=== PATIENT | male | born 1960 | race Caucasian/White ===

== ENCOUNTER 2017-05-22 22:35 | Inpatient (IN) | payer OTHER ==
--- NOTE | 2017-05-22 23:07 | PDOC ---
History of Present Illness - General Chief Complaint: Pain, Acute Stated Complaint: KNEE PAIN Time Seen by Provider: 05/22/17 22:54 History Source: Patient Exam Limitations: No Limitations - History of Present Illness Initial Comments: 05/23/17 04:08 Patient is a 56-year-old male with past medical history of hypertension, NIDDM, noncompliant with medication, who presents to the emergency department today complaining of bilateral knee pain. Patient states that his knee pain began approximately 1 week ago and has intensified over the last 24 hours. He states that his knees are very swollen and painful. Admits to fevers and chills. Denies chest pain, shortness of breath, palpitations, cough, runny nose, ear pain, throat pain, abdominal pain, frequency, urgency, hematuria, nausea, vomiting and diarrhea. Patient states that he did not take any of his medications today. Patient is not on anticoagulation. Triage vitals are notable for a blood pressure of 203/90. Patient states that he does have a headache at this time. Upon further questioning, pt. states he has had a headache for two weeks. tPA Exclusion checklist 3-4.5h - Time Elapsed Date last known well: 05/10/17 Time last known well: 10:00 Elaspsed time: 14 Day(s) and 0 Hour(s) and 51 Minutes - Thrombolytic Therapy Candidate Is patient eligible for thrombolytic therapy: No - Exclusion Criteria 3-4.5 hr SBP greater than 185 or DBP greater than 110mmHg despite tx: Yes Active internal bleeding: Yes - Ineligibility reason(s) Reasons No tPA given: Outside of window - delayed arrival, See reason(s) noted above (intracrainal hemorrhage) NIH Stroke Scale - Initial Evaluation Level of consciousness: Alert Ask patient the month and their age: Answers both correctly Ask patient to open & close eyes; make fist and let go: Obeys both correctly Best gaze (horizontal eye movement): Normal Visual field testing: No visual field loss Facial paresis (Show teeth/raise eyebrows/close eyes tight): Minor paralysis ( flattened nasolabial fold, asymmetry on smiling) Motor Function: Left Arm: Normal Motor Function: Right Arm: Normal (extends arm 90 (or 45) degrees for 10 seconds without drift Motor Function: Left Leg: Untestable (Joint fused or limb amputated), explain: (unable to move legs d/t cellulitis) Motor Function: Right Leg: Untestable )Joint fused orlimb amputated), explain: (unable to move legs d/t cellulitis) Limb Ataxia: Untestable (Joint fused or limb amputated), explain: (unable to move legs d/t cellulitis) Sensory(Use pinprick test arms,legs,trunk,face/side to side): Mild to moderate decrease in sensation (R upper face sensation dulled) Best language (Describe picture, name items, read sentences): No Aphasia Dysarthria (read several words): Normal articulation Extinction and Inattention: No abnormality - Total Score NIH Stroke Scale Score: 2 Past History - Travel Traveled outside of the country in the last 30 days: No Close contact w/someone who was outside of country & ill: No - Past Medical History Allergies/Adverse Reactions: Allergies Allergy/AdvReac Type Severity Reaction Status Date / Time Penicillins Allergy Unknown Verified 05/22/17 22:49 Home Medications: Ambulatory Orders Folic Acid - 1 mg PO DAILY #30 tablet 09/12/13 Glipizide [Glucotrol -] 5 mg PO BIDAC #60 tablet 09/12/13 Metformin HCl [Glucophage -] 500 mg PO AM #30 tablet 09/12/13 Multivitamins [Multivit ([facility] Formulary)] 1 tab PO DAILY #30 tab 09/12/13 Phenazopyridine HCl 100 mg PO TID 01/12/14 Amlodipine Besylate [Norvasc -] 10 mg PO DAILY #30 tablet 01/15/14 Labetalol HCl [Normodyne -] 600 mg PO BID #120 tablet 01/15/14 Anemia: No Asthma: No Cancer: No Cardiac Disorders: No CVA: No COPD: No CHF: No Dementia: No Diabetes: Yes GI Disorders: No Disorders: No HTN: Yes Hypercholesterolemia: No Liver Disease: No Seizures: Yes Thyroid Disease: No - Surgical History Abdominal Surgery: No Appendectomy: No Cardiac Surgery: No Cholecystectomy: No Lung Surgery: No Neurologic Surgery: No Orthopedic Surgery: No - Suicide/Smoking/Psychosocial Hx Smoking History: Unknown if ever smoked Have you smoked in the past 12 months: No Information on smoking cessation initiated: No Hx Alcohol Use: No Drug/Substance Use Hx: No Substance Use Type: Alcohol Hx Substance Use Treatment: No Review of Systems - Review of Systems Able to Perform ROS?: Yes Comments:: 05/23/17 03:15 CONSTITUTIONAL: Absent: fever, chills, diaphoresis, generalized weakness, malaise, loss of appetite HEENT: Absent: rhinorrhea, nasal congestion, throat pain, throat swelling, difficulty swallowing, mouth swelling, ear pain, eye pain, visual Changes CARDIOVASCULAR: Absent: chest pain, loss of consciousness, palpitations, irregular heart rate, peripheral edema RESPIRATORY: Absent: cough, shortness of breath, dyspnea with exertion, orthopnea, wheezing, stridor, hemoptysis GASTROINTESTINAL: Absent: abdominal pain, abdominal distension, nausea, vomiting, diarrhea, constipation, melena, hematochezia GENITOURINARY: Absent: dysuria, frequency, urgency, hesitancy, hematuria, flank pain, genital pain MUSCULOSKELETAL: Present: R and L knee swelling, pain. R and L foot pain. Absent: arthralgia, SKIN: Absent: rash, itching, pallor HEMATOLOGIC/IMMUNOLOGIC: Absent: easy bleeding, easy bruising, lymphadenopathy, frequent infections ENDOCRINE: Absent: unexplained weight gain, unexplained weight loss, heat intolerance, cold intolerance NEUROLOGIC: Present: headache Absent:focal weakness or paresthesias, dizziness, unsteady gait, seizure, mental status changes, bladder or bowel incontinence PSYCHIATRIC: Absent: anxiety, depression, suicidal or homicidal ideation, hallucinations. Is the patient limited Sami proficient: No *Physical Exam - Vital Signs Last Vital Signs Temp Pulse Resp BP Pulse Ox 98.7 F 94 H 14 203/91 95 05/22/17 22:49 05/22/17 22:49 05/22/17 22:49 05/22/17 22:49 05/22/17 22:49 - Physical Exam Comments: 05/23/17 03:16 GENERAL: Well developed, well nourished, obese. Awake and alert.x3 No acute distress, laying on exam bed breathing easily. HEENT: Normocephalic, atraumatic. PERRLA, EOMI. No conjunctival pallor. Sclera are non- icteric. Moist mucous membranes. Oropharynx is clear. NECK: Supple. Full ROM. No JVD. Carotid pulses 2+ and symmetric, without bruits. No thyromegaly. No lymphadenopathy. CARDIOVASCULAR: Regular rate and rhythm. 2+ systolic murmur loudest over the 2-3rd R intercostal space. No rubs, or gallops. Distal pulses are 2+ and symmetric. PULMONARY: No evidence of respiratory distress. Lungs clear to auscultation bilaterally. No wheezing, rales or rhonchi. ABDOMINAL: Soft. Non-tender. Non-distended. No rebound or guarding. No organomegaly. Normoactive bowel sounds. MUSCULOSKELETAL Knees b/l are swollen, warm to the touch. Skin intact over knees. Pt. unable to flex or extend knees b/l. Pedal pulses 2+ and regular. Normal range of motion at all other joints. No bony deformities or tenderness. No CVA tenderness. EXTREMITIES: No cyanosis. No clubbing. No edema. No calf tenderness. SKIN: [id number] area erythematous inferior to the L 1st toe. Warm and dry. Normal capillary refill. No jaundice. NEUROLOGICAL: Alert, awake, appropriate. Cranial nerves 2-12 intact. Light touch to R forehead decreased. Other sensation of the face intact. No deficits to light touch and temperature in upper extremities and lower extremities. R eyelid weak when closed. No other motor deficits of the face. No motor deficits in the in upper extremities. Lower extremities unable to be evaluated d/t pain from cellulitis . Normoreflexic in the upper and lower extremities. Normal speech. Toes are down-going bilaterally. Gait is unobserved at this time. PSYCHIATRIC: Cooperative. Good eye contact. Appropriate mood and affect. ED Treatment Course - LABORATORY CBC & Chemistry Diagram: 05/24/17 05:05 05/24/17 05:05 Medical Decision Making - Critical Care Time Total Critical Care Time (minutes): 40 Critical Care Statement: The care of this patient involved high complexity decision making to prevent further life threatening deterioration of the patient 's condition and/or to evaluate & treat vital organ system(s) failure or risk of failure. - Medical Decision Making 05/23/17 02:25 Patient is a 56-year-old male with past medical history of hypertension, non- insulin-dependent diabetes noncompliant with his medication, who presents to the emergency department today complaining of bilateral knee pain. Knees are grossly swollen at this time and warm to the touch. There is no obvious source of infection. Differential diagnosis includes cellulitis, gout, effusion. Less likely septic joint patient can slightly range both knees. On triage vitals blood pressure noted to be 215/110. Patient has not taken his home medications for his blood pressure today. Patient is also complaining of headache for two weeks. Will rule out acute bleed at this time. 1.CBC, CMP, PT/INR, uric acid, ESR, CRP UA, UC 2.10 mg of IV labetalol 3.head CT 4.reevaluate 05/23/17 03:18 Labs notable for a WBC count of 15.1. Source most likely coming from the legs, specifically the L and R feet, questionable cellulitic area. 05/23/17 04:01 Received phone call from imaging on-call regarding patient's head CT. There is a positive brain bleed. Official reading Head CT is positive for intracranial bleed. There is a 1.2 x 0.7 x 1.8 cm hematoma in the left parietal subcortical white matter. There is some surrounding edema. There is no deviation of the midline structures. There is a linear 11 x 3 x 3 mm band of hypodensity in the right basal ganglia there is a small amount of surrounding edema. Ventricles are mildly prominent. There is an old-appearing infarct in the anterior limb of the right basal ganglion. There is no calvarial fracture. Impression positive for intracranial bleed with left parietal hematoma. The density in the right basoganglia may reflect a second intracranial bleed or vascular malformation. Correlation with history and comparison with prior studies is recommended. Spoke with Dr. Smith, neurosurgery. Would like a CTA of the head to further evaluate bleed. BUN and Cr are eleveated 21/1.5 at this time. Recommending a liter of fluids, repeat BMP. If Cr comes down, CTA. Pressure is currently 211/93. Will administer another 10 IV labetolol 05/23/17 04:52 Pressure still elevated in the 200's after second dose of labatolol. Will start Nicardipine drip at this time to keep systolic between 140-160. Spoke with junior about the case. Will admit to ICU. ICU night [facility] [employer] accepts pt. BUN/CR 21/1.3 after fluids. Will send pt. for CTA brain and neck at this time. *DC/Admit/Observation/Transfer Diagnosis at time of Disposition: Hemorrhage, intracranial Hypertension Qualifiers: Hypertension type: unspecified Qualified Code(s): I10 - Essential (primary) hypertension Type 2 diabetes mellitus Qualifiers: Diabetes mellitus complication status: with unspecified complications Diabetes mellitus technician terminal and repeater insulin use: without intermediate use Qualified Code(s): E11.8 - Type 2 diabetes mellitus with unspecified complications Cellulitis Qualifiers: Site of cellulitis: extremity Site of cellulitis of extremity: lower extremity Laterality: left Qualified Code(s): L03.116 - Cellulitis of left lower limb - Discharge Dispostion Condition at time of disposition: Guarded Admit: Yes - Referrals - Patient Instructions - Post Discharge Activity
[2017-05-22 23:23] VITALS: BMI 29.0
[2017-05-22] MEDS ORDERED: LABETALOL HCL 5 MG/1 ML (100MG/20 ML VIAL) IVPUSH ONE (23:50)
[2017-05-23] MEDS ORDERED: LABETALOL HCL 5 MG/1 ML (200MG/40ML VIAL) IVPB ONE (01:03)
[2017-05-23 01:31] LABS: BASOPHIL 0.5 % (0-2.0); MCH 30.3 pg (25.7-33.7); MCHC 33.5 g/dl (32.0-35.9); MEAN CELL VOLUME 90.4 fl (80-96); NEUTROPHILS 82.4 % (42.8-82.8); PLATELET COUNT 299 K/MM3 (134-434); RDW 13.4 % (11.9-15.9); WHITE BLOOD COUNT 15.2 K/mm3 (4.0-10.0)
[2017-05-23 01:33] LABS: URINE APPEARANCE SLCLOUDY; URINE BILIRUBIN NEGATIVE (NEGATIVE); URINE BLOOD 1+ (NEGATIVE); URINE COLOR YELLOW; URINE GLUCOSE (UA) 3+ (NEGATIVE); URINE KETONE NEGATIVE (NEGATIVE); URINE NITRITE NEGATIVE (NEGATIVE); URINE UROBILINOGEN NEGATIVE mg/dL (0.2-1.0)
[2017-05-23 01:36] LABS: URINE PROTEIN 3+ (NEGATIVE)
[2017-05-23 01:38] LABS: URINE BACTERIA RARE /hpf (NONE SEEN); URINE HYALINE CAST 27 /lpf; URINE RBC 6 /hpf (0-3); URINE WBC 3 /hpf (3-5)
[2017-05-23 02:00] LABS: INR 1.28 (0.82-1.09); PROTHROMBIN TIME (PATIENT) 14.5 SEC (9.98-11.88)
[2017-05-23 02:14] LABS: ALBUMIN 2.2 g/dl (3.4-5.0); ANION GAP 9 (8-16); CALCIUM 7.5 mg/dL (8.5-10.1); CO2 26 mmol/L (21-32); CREATININE 1.5 mg/dL (0.7-1.3); GLUCOSE,RANDOM 278 mg/dL (74-106); SGOT/AST 12 U/L (15-37); SGPT/ALT 34 U/L (12-78)
[2017-05-23 02:16] LABS: ALK PHOS 84 U/L (45-117); BILIRUBIN,TOTAL 0.4 mg/dL (0.2-1.0); TOT PROT 6.2 g/dl (6.4-8.2)
--- NOTE | 2017-05-23 02:22 | PDOC ---
*Physical Exam - Vital Signs Last Vital Signs Temp Pulse Resp BP Pulse Ox 98.7 F 94 H 14 203/91 95 05/22/17 22:49 05/22/17 22:49 05/22/17 22:49 05/22/17 22:49 05/22/17 22:49 ED Treatment Course - LABORATORY CBC & Chemistry Diagram: 05/27/17 05:00 05/27/17 05:00 - ADDITIONAL ORDERS Additional order review: Laboratory Results 05/23/17 05/23/17 05/23/17 01:15 01:15 01:15 PT with INR 14.50 H INR 1.28 H Sodium 136 Potassium 3.4 L Chloride 101 Carbon Dioxide 26 Anion Gap 9 BUN 21 H D Creatinine 1.5 H D Creat Clearance w eGFR 48.59 Random Glucose 278 H D Calcium 7.5 L Total Bilirubin 0.4 AST 12 L D ALT 34 D Alkaline Phosphatase 84 Total Protein 6.2 L Albumin 2.2 L D Urine Color Yellow Urine Appearance Slcloudy Urine pH 5.0 Ur Specific [place] 1.022 Urine Protein 3+ H D Urine Glucose (UA) 3+ H Urine Ketones Negative Urine Blood 1+ H Urine Nitrite Negative Urine Bilirubin Negative Urine Urobilinogen Negative Ur Epithelial Cells Rare Urine Bacteria Rare Hyaline Casts 27 05/23/17 01:15 RBC 4.22 MCV 90.4 MCHC 33.5 RDW 13.4 MPV 9.0 Neutrophils % 82.4 D Lymphocytes % 5.3 L D Monocytes % 11.8 H Eosinophils % 0.0 D Basophils % 0.5 - Medications Given in the ED: ED Medications Discontinued Medications Generic Name Dose Route Start Last Admin Trade Name Jovon PRN Reason Stop Dose Admin Labetalol HCl 10 mg 05/22/17 23:50 05/23/17 01:23 Normodyne Injection - IVPUSH 05/22/17 23:51 10 mg ONCE ONE Administration Medical Decision Making - Medical Decision Making 05/23/17 02:22 agree with care from JOYA Nugent *DC/Admit/Observation/Transfer Diagnosis at time of Disposition: Hemorrhage, intracranial, Hypertension, Type 2 diabetes mellitus, Cellulitis - Discharge Dispostion Condition at time of disposition: Guarded - Referrals - Patient Instructions - Post Discharge Activity
[2017-05-23 02:59] LABS: CPK 133 IU/L (39-308); TROPONIN I < 0.02 ng/ml (0.00-0.05)
[2017-05-23] MEDS ORDERED: LEVOFLOXACIN 500 MG IVPB 500 MG/100 ML BAG IVPB ONE ×2 (03:06→03:23)
[2017-05-23] MEDS ORDERED: SODIUM CHLORIDE 1,000 ML IV STA (03:57)
[2017-05-23] MEDS ORDERED: LABETALOL HCL 5 MG/1 ML (100MG/20 ML VIAL) IVPUSH ONE (04:13)
[2017-05-23] MEDS ORDERED: morphine CARPU-JECT 4 MG/1 ML DISP.SYRIN IVPUSH ONE (04:25)
[2017-05-23] MEDS ORDERED: ONDANSETRON 4 MG/2 ML VIAL IVPUSH ONE (04:26)
[2017-05-23] MEDS ORDERED: ONDANSETRON 4 MG/2 ML VIAL ONE (04:28)
[2017-05-23] MEDS ORDERED: morphine SULFATE 4 MG/ML VIAL ONE (04:28)
[2017-05-23] MEDS ORDERED: niCARdipine HCL 25 MG/10 ML AMPUL IVPB ONE ×2 (04:39→10:02)
--- NOTE | 2017-05-23 04:42 | HP ---
CHIEF COMPLAINT: Painful feet and headache PCP: None HISTORY OF PRESENT ILLNESS: 56yo Portuguese-speaking M with significant history of DM, uncontrolled HTN, previous CVA noted from medical records who presented to the ED for painful feet that started Friday night. Pt translation was provided by Dr. Zuñiga , however pt was noted to be under the effects of recent morphine administration. Dr. Zuñiga states pt was of normal mentation earlier. Pt reported feeling feverish and having his feet hurt Friday night to the point of where he could not walk anymore due to the pain. Pt also endorses having a headache currently, however he states that he had this headache for about 2 weeks prior. Pt originally had some blurriness in vision, however currently denies it. Pt denies nausea/vomiting, cough, rhinorrhea, CP/discomfort, palpitations, SOB, and abdominal pain. Pt admits to medication noncompliance. ER course was notable for: (1) BP notable to 203/91 ; Labetolol x1 dose given (2) CT Head showing L parietal lobe hemorrhage and R basal ganglion hyperlucency which may represent an AVM (3) Dr. Smith contacted - recommended hydration to decrease Cr prior to obtaining CTA (4) Morphine 8mg administration PAST MEDICAL HISTORY: DM Uncontrolled HTN Previous lacunar infarct CVA around 07/2013 PAST SURGICAL HISTORY: Social History: Smoking: Alcohol: Drugs: Family History: Allergies Penicillins Allergy (Unknown, Verified 05/22/17 22:49) HOME MEDICATIONS: Home Medications Medication Instructions Recorded Folic Acid - 1 mg PO DAILY #30 tablet 09/12/13 Glipizide [Glucotrol -] 5 mg PO BIDAC #60 tablet 09/12/13 Metformin HCl [Glucophage -] 500 mg PO AM #30 tablet 09/12/13 Multivitamins [Multivit ([facility] 1 tab PO DAILY #30 tab 09/12/13 Formulary)] Phenazopyridine HCl 100 mg PO TID 01/12/14 Amlodipine Besylate [Norvasc -] 10 mg PO DAILY #30 tablet 01/15/14 Labetalol HCl [Normodyne -] 600 mg PO BID #120 tablet 01/15/14 REVIEW OF SYSTEMS CONSTITUTIONAL: Present: fever, chills, Absent: diaphoresis, generalized weakness, malaise, loss of appetite, weight change HEENT: Absent: rhinorrhea, nasal congestion, throat pain, throat swelling, difficulty swallowing, mouth swelling, ear pain, eye pain, visual changes CARDIOVASCULAR: Absent: chest pain, syncope, palpitations, irregular heart rate, lightheadedness , peripheral edema RESPIRATORY: Absent: cough, shortness of breath, dyspnea with exertion, orthopnea, wheezing, stridor, hemoptysis GASTROINTESTINAL: Absent: abdominal pain, abdominal distension, nausea, vomiting, diarrhea, constipation, melena, hematochezia GENITOURINARY: Absent: dysuria, frequency, urgency, hesitancy, hematuria, flank pain, genital pain MUSCULOSKELETAL: Absent: myalgia, arthralgia, joint swelling, back pain, neck pain SKIN: Present: rash, Absent: itching, pallor HEMATOLOGIC/IMMUNOLOGIC: Absent: easy bleeding, easy bruising, lymphadenopathy, frequent infections ENDOCRINE: Absent: unexplained weight gain, unexplained weight loss, heat intolerance, cold intolerance NEUROLOGIC: Present: headache, Absent: focal weakness or paresthesias, dizziness, unsteady gait, seizure, mental status changes, bladder or bowel incontinence PSYCHIATRIC: Absent: anxiety, depression, suicidal or homicidal ideation, hallucinations. PHYSICAL EXAMINATION Vital Signs - 24 hr 05/22/17 05/23/17 22:49 04:12 Temperature 98.7 F Pulse Rate 94 H Pulse Rate [ 88 Apical] Respiratory 14 21 Rate Blood Pressure 203/91 Blood Pressure 211/94 [Left Arm] O2 Sat by Pulse 95 100 Oximetry (%) GENERAL: NAD, awake, alert, under effects of Morphine HEENT: EOMI, CHAD, no scleral icterus, slightly dry mucosa, normal structures of the mouth, no plaques seen in posterior oropharynx LUNGS: CTA bilaterally. No wheezes, rhonchi, rales. No accessory muscle use. HEART: RRR, normal S1 and S2 with 2/6 systolic murmur heard in the LUSB ABDOMEN: Soft, nontender, nondistended, normoactive bowel sounds, no guarding, no rebound. No hepatomegaly MUSCULOSKELETAL: No CVA tenderness. EXTREMITIES: 2+ DP pulses, extremely warm with streaking erythematous rash from dorsum of foot to midleg, well-perfused. No edema. No overt lesions, lacerations , abrasions seen on feet or between toes. Cap refill <2sec NEUROLOGICAL: Cranial nerves II-XII intact. EOMI, CHAD, no uvual deviation, no tongue deviation, strength 5/5 diffusely, sensation grossly intact. Normal speech. PSYCHIATRIC: Cooperative. Good eye contact. SKIN: See extremities exam Laboratory Results - last 24 hr 05/23/17 05/23/17 05/23/17 01:15 01:15 01:15 WBC 15.2 H D RBC 4.22 Hgb 12.8 Hct 38.1 MCV 90.4 MCH 30.3 MCHC 33.5 RDW 13.4 Plt Count 299 D MPV 9.0 Neutrophils % 82.4 D Lymphocytes % 5.3 L D Monocytes % 11.8 H Eosinophils % 0.0 D Basophils % 0.5 PT with INR 14.50 H INR 1.28 H Sodium 136 Potassium 3.4 L Chloride 101 Carbon Dioxide 26 Anion Gap 9 BUN 21 H D Creatinine 1.5 H D Creat Clearance w eGFR 48.59 Random Glucose 278 H D Lactic Acid Uric Acid Calcium 7.5 L Total Bilirubin 0.4 AST 12 L D ALT 34 D Alkaline Phosphatase 84 Creatine Kinase Troponin I Total Protein 6.2 L Albumin 2.2 L D Urine Color Urine Appearance Urine pH Ur Specific [place] Urine Protein Urine Glucose (UA) Urine Ketones Urine Blood Urine Nitrite Urine Bilirubin Urine Urobilinogen Ur Epithelial Cells Urine Bacteria Hyaline Casts 05/23/17 05/23/17 05/23/17 01:15 01:15 01:15 WBC RBC Hgb Hct MCV MCH MCHC RDW Plt Count MPV Neutrophils % Lymphocytes % Monocytes % Eosinophils % Basophils % PT with INR INR Sodium Potassium Chloride Carbon Dioxide Anion Gap BUN Creatinine Creat Clearance w eGFR Random Glucose Lactic Acid 1.3 Uric Acid Calcium Total Bilirubin AST ALT Alkaline Phosphatase Creatine Kinase 133 Troponin I < 0.02 Total Protein Albumin Urine Color Yellow Urine Appearance Slcloudy Urine pH 5.0 Ur Specific [place] 1.022 Urine Protein 3+ H D Urine Glucose (UA) 3+ H Urine Ketones Negative Urine Blood 1+ H Urine Nitrite Negative Urine Bilirubin Negative Urine Urobilinogen Negative Ur Epithelial Cells Rare Urine Bacteria Rare Hyaline Casts 27 05/23/17 01:15 WBC RBC Hgb Hct MCV MCH MCHC RDW Plt Count MPV Neutrophils % Lymphocytes % Monocytes % Eosinophils % Basophils % PT with INR INR Sodium Potassium Chloride Carbon Dioxide Anion Gap BUN Creatinine Creat Clearance w eGFR Random Glucose Lactic Acid Uric Acid 6.3 Calcium Total Bilirubin AST ALT Alkaline Phosphatase Creatine Kinase Troponin I Total Protein Albumin Urine Color Urine Appearance Urine pH Ur Specific [place] Urine Protein Urine Glucose (UA) Urine Ketones Urine Blood Urine Nitrite Urine Bilirubin Urine Urobilinogen Ur Epithelial Cells Urine Bacteria Hyaline Casts ASSESSMENT/PLAN: 56yo Portuguese-speaking M with significant history of DM, uncontrolled HTN, previous CVA noted from medical records who presented to the ED for painful feet and headache who was found to have a L parietal ICH and R basal ganglion hyperluceny confirmed by Head CT w/o contrast. Pt also noted to have BP 203/91. 1) Intracranial hemorrhage --Nicardipene gtt initiated --BP goals for 140-160/80-90 for acute ICH --Dr. Smith consulted: Recommends hydrating the patient prior to obtaining a CTA for r/o of AVM due to NOEL --Elevate HOB 30* --NPO --Neuro checks q1h --Neurology consulted 2) Suspected Cellulitis of lower extremities --Unknown source at this moment --WBC 15.2 --Started on Clindamycin 600mg q8h IV --Tylenol 1gm IV q6h PRN for fevers 3) Hypertensive Emergency --BP initially 203/91 --Pt had labetolol administered in ER --Initiated Nicardipene gtt for BP control 4) NOEL --Most likely secondary to prerenal azotemia --Cr baseline of .9-1.0 with elevation to 1.5 noted --1L Bolus given --Repeat BMP --If repeat Cr has normalized will obtain CTA 5) DM --BGM ACHS --ISS --A1C ordered for AM FEN: Fluids: Gentle hydration 42cc/hr Electrolyte abnormalities Nutrition: NPO status PPX: DVT- SCDs applied to both legs GI- Protonix 40mg Dispo: ICU level of monitoring Case discussed with medical team Ehsan Quiles DO - Internal Medicine PGY-1 Visit type - Emergency Visit Emergency Visit: Yes Care time: The patient presented to the Emergency Department on the above date and was hospitalized for further evaluation of their emergent condition. - New Patient This patient is new to me today: Yes Date on this admission: 05/23/17 - Critical Care Critical Care patient: Yes Total Critical Care Time (in minutes): 38 Critical Care Statement: The care of this patient involved high complexity decision making to prevent further life threatening deterioration of the patient 's condition and/or to evaluate & treat vital organ system(s) failure or risk of failure.
[2017-05-23] MEDS: NICARDIPINE 25 MG in DEXTROSE 5%-WATER - 240 ML IVPB SCH ×4 (04:50→22:35)
[2017-05-23] MEDS ORDERED: CEFAZOLIN 1 GM in DEXTROSE 5%-WATER - 50 ML IVPB ONE (05:16)
[2017-05-23 05:30] LABS: ANION GAP 7 (8-16); CALCIUM 7.1 mg/dL (8.5-10.1); CO2 26 mmol/L (21-32); CREATININE 1.3 mg/dL (0.7-1.3); GLUCOSE,RANDOM 258 mg/dL (74-106)
--- NOTE | 2017-05-23 06:10 | PN ---
Teaching Attending Note Name of Resident: Ehsan Quiles ATTENDING PHYSICIAN STATEMENT I saw and evaluated the patient. I reviewed the resident's note and discussed the case with the resident. I agree with the resident's findings and plan as documented. SUBJECTIVE: 56 year old male that presents to the ED c/o b/l foot pain and headache. Initial BP was 203/[address] head was performed and revead L parietal lobe hemorrhage in the area of R basal ganglia that could be originating from AVM PAST MEDICAL HISTORY: DM HTN CVA around 07/2013 OBJECTIVE: Vital Signs Temperature 98.7 F 05/22/17 22:49 Pulse Rate 60 05/23/17 04:50 Respiratory Rate 21 05/23/17 04:12 Blood Pressure 201/94 05/23/17 04:50 O2 Sat by Pulse Oximetry (%) 100 05/23/17 04:12 HEART: RRR, normal S1 and S2 with 2/6 systolic murmur heard in the LUSB ABDOMEN: Soft, nontender, nondistended, normoactive bowel sounds, no guarding, no rebound. No hepatomegaly MUSCULOSKELETAL: No CVA tenderness. EXTREMITIES: 2+ DP pulses, extremely warm , erythematous rash from dorsum of foot to mid leg.No edema. No lacerations. CBC, BMP 05/23/17 01:15 05/23/17 04:51 Urine Test Results Urine Color Yellow 05/23/17 01:15 Urine Appearance Slcloudy 05/23/17 01:15 Urine pH 5.0 (5.0-8.0) 05/23/17 01:[address] 1.022 (1.001-1.035) 05/23/17 01:15 Urine Protein 3+ (NEGATIVE) H D 05/23/17 01:15 Urine Glucose (UA) 3+ (NEGATIVE) H 05/23/17 01:15 Urine Ketones Negative (NEGATIVE) 05/23/17 01:15 Urine Blood 1+ (NEGATIVE) H 05/23/17 01:15 Urine Nitrite Negative (NEGATIVE) 05/23/17 01:15 Urine Bilirubin Negative (NEGATIVE) 05/23/17 01:15 Ur Epithelial Cells Rare /HPF (FEW) 05/23/17 01:15 Urine Bacteria Rare /hpf (NONE SEEN) 05/23/17 01:15 ASSESSMENT AND PLAN: 1) Intracranial hemorrhage- likely secondary to underlying AVM -Nicardipine gtt initiated -Dr. Smith/ neurosurgery consulted, will get CTA -Elevate HOB 30* -NPO -Neuro checks q1h 2) Cellulitis of lower extremities -Started on Clindamycin 600mg q8h IV -Tylenol 1gm IV q6h PRN for fevers 3) Hypertensive Emergency - improved after initiation of Cardene 4) NOEL- likely pre renal - IVF - monitor BMP 5) DM -BGM ACHS -ISS -A1C
[2017-05-23] MEDS: PANTOPRAZOLE 40 MG TABLET (FP) PO SCH (06:26)
[2017-05-23] MEDS: INSULIN SLIDING SCALE (NOVOLOG) 1 VIAL SQ SCH ×5 (09:00→22:35)
[2017-05-23 09:07] LABS: BASOPHIL 0.5 % (0-2.0); MCH 29.5 pg (25.7-33.7); MCHC 32.7 g/dl (32.0-35.9); MEAN CELL VOLUME 90.3 fl (80-96); MEAN PLT VOLUME 8.4 fl (7.5-11.1); NEUTROPHILS 77.8 % (42.8-82.8); PLATELET COUNT 301 K/MM3 (134-434); RDW 13.2 % (11.9-15.9); WHITE BLOOD COUNT 15.6 K/mm3 (4.0-10.0)
[2017-05-23 09:21] LABS: INR 1.33 (0.82-1.09)
[2017-05-23] MEDS ORDERED: SODIUM CHLORIDE 500 ML IV STA (09:22)
[2017-05-23 09:24] LABS: ACTIVATED PTT 31.5 SECONDS (26.9-34.4)
--- NOTE | 2017-05-23 09:27 | EKG ---
Test Reason : Blood Pressure : / mmHG Vent. Rate : 089 BPM Atrial Rate : 089 BPM P-R Int : 144 ms QRS Dur : 090 ms QT Int : 366 ms P-R-T Axes : 059 026 026 degrees QTc Int : 445 ms POOR DATA QUALITY, INTERPRETATION MAY BE ADVERSELY AFFECTED NORMAL SINUS RHYTHM POSSIBLE LEFT ATRIAL ENLARGEMENT LEFT VENTRICULAR HYPERTROPHY NONSPECIFIC ST ABNORMALITY ABNORMAL ECG Confirmed by TERRI XAVIER MD ([id number]) on 05/23/2017 9:27:04 AM Referred By: Confirmed By:TERRI XAVIER MD
[2017-05-23 09:42] LABS: ANION GAP 10 (8-16); BILIRUBIN,TOTAL 0.5 mg/dL (0.2-1.0); CALCIUM 7.3 mg/dL (8.5-10.1); CO2 24 mmol/L (21-32); CREATININE 1.3 mg/dL (0.7-1.3); GLUCOSE,RANDOM 222 mg/dL (74-106); MAGNESIUM 2.1 mg/dL (1.8-2.4); PHOSPHOROUS 3.2 mg/dL (2.5-4.9); SGOT/AST 8 U/L (15-37); SGPT/ALT 29 U/L (12-78); TOT PROT 5.7 g/dl (6.4-8.2)
[2017-05-23 09:45] LABS: ALK PHOS 77 U/L (45-117); CPK 111 IU/L (39-308); TROPONIN I < 0.02 ng/ml (0.00-0.05)
[2017-05-23] MEDS ORDERED: CLINDAMYCIN 600MG PREMIX IVPB 600 MG/50 ML BAG IVPB SCH (10:00)
--- NOTE | 2017-05-23 10:04 | PN ---
Progress Note (short form) - Note Progress Note: NEUROSURGERY Pt examined CT reviewed H/o hypertension and NIDDM, noncompliant with medication, presented with bilateral knee pain x 1 week. Patient states that his knee pain began approximately 1 week and his knees were swollen and painful. Admits to fevers and chills. Denies chest pain, shortness of breath, nausea, vomiting. Patient noted for initial blood pressure of 203/90. + headache earlier but not now. PMH: DM, HTN MEDS: none taken SoHx: non-smoker, occ EtOH, not working PE: T 98.7, SBP down to 150's on nicardipine drip HEENT- NC/AT; neck- supple; Cor-RR; Lungs- CTA B; Abd- benign; Ext- B tender anterior knees with swelling A/A/Ox3 CN- non-focal; Motor- at least 4+/5 without drift; Sensation- intact LT; DTR- 1+ WBC 15.6; ESR 125; Cr 1.3 Blood culture pending Head CT- L parietal 1.5 x 2 cm subcortical ICH with edema; small R posterior putamen/IC hyperdensity CTA head (prelim)- no clear aneurysm or AVM- final reading pending Probable hypertensive ICH SBP target range 140-170 with slow reduction F/u head CT in AM 11-25 to ascertain ICH stability No neurosurgical intervention indicated D/w medical team Ortho/ID input recommended for knees
[2017-05-23] MEDS: MUPIROCIN 2% TOPICAL OINTMENT FOR DECOLONIZATION NS SCH ×2 (10:05→22:30)
[2017-05-23 10:24] LABS: URINE LEUK ESTERASE Negative (NEGATIVE)
--- NOTE | 2017-05-23 11:28 | CON.NEURO ---
Consult Consult Specialty:: Neurology Referred by:: Dr. Sun Reason for Consultation:: Intracranial Hemorrhage - History of Present Illness Chief Complaint: Knee pain History of Present Illness: Patient presented to the ER with bilateral knee pain and was found to be hypertensive. He also reportedly at that time acknowledged having a headache though he says that he doesn't now. He had CT scan which revealed small left parietal hematoma. F/U imaging (CTA head and neck) revealed no aneurysms or AVM ). He had been admitted in 2013 for ETOH withdrawal and was found then to be septic and diagnosed with endocarditis. 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) Endocrine: Yes: Diabetes Mellitus - Past Surgical History Past Surgical History: Yes: None - Alcohol/Substance Use Hx Alcohol Use: Yes (was in withdrawal in 2013) - Smoking History Smoking history: Unknown if ever smoked Have you smoked in the past 12 months: No - Social History Usual Living Arrangement: Alone ADL: Independent 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 Home Medications - Allergies Allergies/Adverse Reactions: Allergies Allergy/AdvReac Type Severity Reaction Status Date / Time Penicillins Allergy Unknown Verified 05/22/17 22:49 - Home Medications Home Medications: Ambulatory Orders Folic Acid - 1 mg PO DAILY #30 tablet 09/12/13 Glipizide [Glucotrol -] 5 mg PO BIDAC #60 tablet 09/12/13 Metformin HCl [Glucophage -] 500 mg PO AM #30 tablet 09/12/13 Multivitamins [Multivit ([facility] Formulary)] 1 tab PO DAILY #30 tab 09/12/13 Phenazopyridine HCl 100 mg PO TID 01/12/14 Amlodipine Besylate [Norvasc -] 10 mg PO DAILY #30 tablet 01/15/14 Labetalol HCl [Normodyne -] 600 mg PO BID #120 tablet 01/15/14 Family Disease History - Family Disease History Family Disease History: Diabetes: Mother, Heart Disease: Grandparent (advanced age though) Physical Exam-Neuro Vital Signs: Vital Signs Temperature 98.7 F 05/22/17 22:49 Pulse Rate 101 H 05/23/17 10:43 Respiratory Rate 18 05/23/17 10:43 Blood Pressure 144/68 05/23/17 10:43 O2 Sat by Pulse Oximetry (%) 100 05/23/17 04:12 Constitutional: Yes: Well Nourished, Calm Musculoskeletal: Yes: Other (leg pain) Labs: CBC, BMP 05/23/17 08:59 05/23/17 08:59 INR, PTT INR 1.33 (0.82-1.09) H 05/23/17 08:59 - Neuro Exam Level Of Consciousness: Yes: Alert, Oriented to Person, Oriented to Place, Oriented to Time Eyes: Yes: FRANTZ Speech: WNL Cranial Nerves II-XII Intact: Yes DTR's: 2+ Left Bicep, 2+ Right Bicep, 2+ Left Tricep, 2+ Right Tricep, 2+ Left Brachioradialis, 2+ Right Brachioradialis Babinski: Absent Response to light touch: Abnormal Motor Strength: 5/5: Left Arm, Left Leg, Right Leg (poor effort in left leg ( pain)) Imaging - Results Cat Scan: Report Reviewed, Image Reviewed (Small periphal subcortical left parietal hemorrhage, CTA head and neck showed some mild areas of luminal constriction but nothing significant) Problem List - Problems (1) Hemorrhage, intracranial Code(s): I62.9 - NONTRAUMATIC INTRACRANIAL HEMORRHAGE, UNSPECIFIED (2) Hypertension Code(s): I10 - ESSENTIAL (PRIMARY) HYPERTENSION Qualifiers: Hypertension type: unspecified Qualified Code(s): I10 - Essential (primary ) hypertension (3) Type 2 diabetes mellitus Code(s): E11.9 - TYPE 2 DIABETES MELLITUS WITHOUT COMPLICATIONS Qualifiers: Diabetes mellitus complication status: with unspecified complications Diabetes mellitus alf insulin use: without alf use Qualified Code( s): E11.8 - Type 2 diabetes mellitus with unspecified complications Assessment/Plan Very peripheral subcortical intracerebral hemorrhage, atypical for hypertensive hemorrhage. His history of endocarditis puts him at risk for mycotic aneurysms , and though these don't usually bleed, this is possible. Its also possible that he bled into a metastatic lesion given the location near the sharma/white junction, and MRI with and without gadolinium would be worthwhile, though lesion may not be visible until bleed is absorbed, so f/u study may be necessary in a few months if nothing is found. I would also make sure that he doesn't have endocarditis again. Thanks.
--- NOTE | 2017-05-23 12:13 | PN ---
Teaching Attending Note Name of Resident: Maria Del Carmen Haddad ATTENDING PHYSICIAN STATEMENT I saw and evaluated the patient. I reviewed the resident's note and discussed the case with the resident. I agree with the resident's findings and plan as documented. SUBJECTIVE: Pt seen and examined in the ICU with the resident. Briefly, 56yo male with h/o HTN, DM, prior CVA who presented with bilateral leg pain and swelling. Also complained of headache and blurry vision, CT head showing left parietal hemorrhage. Hypertensive with SBP >200, started on nicardipine gtt. OBJECTIVE: Last Vital Signs Temp Pulse Resp BP Pulse Ox 98.7 F 101 H 18 144/68 100 05/22/17 22:49 05/23/17 10:43 05/23/17 10:43 05/23/17 10:43 05/23/17 04:12 Intake & Output 05/20/17 05/21/17 05/22/17 05/23/17 23:59 23:59 23:59 23:59 Weight 180 lb Gen: slow to respond Heart: tachycardic, regular Lung: decreased breath sounds at the bases Abd: soft, nontender Ext: LE edema, warm CBC, BMP 05/23/17 08:59 05/23/17 08:59 Active Medications Acetaminophen (Ofirmev Injection -) 1,000 mg IVPB Q6H PRN PRN Reason: PAIN Chlorhexidine Gluconate (Hibiclens For Decolonization -) 1 applic TP HS LULA Nicardipine HCl 25 mg/ (Dextrose) 250 mls @ 25 mls/hr IVPB TITR LULA; 2.5 MG/HR PRN Reason: Protocol Last Admin: 05/23/17 10:19 Dose: 10 mg/hr, 100 mls/hr Clindamycin Phosphate (Cleocin 600 Mg Premix Ivpb -) 600 mg in 50 mls @ 100 mls /hr IVPB Q8H-IV LULA Last Admin: 05/23/17 10:05 Dose: 100 mls/hr Insulin Aspart (Novolog Vial Sliding Scale -) 1 vial SQ ACHS LULA PRN Reason: Protocol Last Admin: 05/23/17 10:17 Dose: Not Given Mupirocin (Bactroban Ointment (For Decolonization) -) 1 applic NS BID LULA Stop: 05/28/17 09:59 Last Admin: 05/23/17 10:05 Dose: 1 applic Pantoprazole Sodium (Protonix -) 40 mg PO DAILY LULA Last Admin: 05/23/17 06:26 Dose: 40 mg ASSESSMENT AND PLAN: Acute Intracranial Hemorrhage Hypertensive Urgency DM - titrate cardene gtt, keep SBP <160 - echocardiogram - on empiric antibiotics - f/u cultures - repeat CT head in AM - DVT prophylaxis - continue ICU monitoring critical care time spent in reviewing chart, evaluating patent and formulating plan 35 min
--- NOTE | 2017-05-23 12:33 | CONSULT ---
Consultation: REQUESTING PROVIDER: CONSULT REQUEST: PULM/CC We have been asked to medically evaluate this patient for ICH. HISTORY OF PRESENT ILLNESS: 54 y/o M with hx DM, uncontrolled HTN, previous CVA, who came to ED with swollen and painful feet, tactile fever, tachycardia, and headache for the past two days. Pt stated that his headache was global in nature, constant, 10/10 pain. It was a/w with intermittent blurry vision. On admission, pt denied N/V/D , cough, LOC, or any focal neurological deficits. In the ED, pt's BP was elevated at 203/91 and received one dose of labetalol. CT head revealed L parietal hemorrhage and R basal ganglia hyperlucency, that may have resulted from an AVM. Pt admitted to ICU for continued management s/p L parietal hemorrhage. REVIEW OF SYSTEMS: CONSTITUTIONAL: Absent: fever, chills, diaphoresis, generalized weakness, malaise, loss of appetite, weight change HEENT: +headache Absent: rhinorrhea, nasal congestion, throat pain, throat swelling, difficulty swallowing, mouth swelling, ear pain, eye pain, visual changes CARDIOVASCULAR: Absent: chest pain, syncope, palpitations, irregular heart rate, lightheadedness , peripheral edema RESPIRATORY: Absent: cough, shortness of breath, dyspnea with exertion, orthopnea, wheezing, stridor, hemoptysis GASTROINTESTINAL: Absent: abdominal pain, abdominal distension, nausea, vomiting, diarrhea, constipation, melena, hematochezia GENITOURINARY: Absent: dysuria, frequency, urgency, hesitancy, hematuria, flank pain, genital pain MUSCULOSKELETAL: Absent: myalgia, arthralgia, joint swelling, back pain, neck pain SKIN: Absent: rash, itching, pallor HEMATOLOGIC/IMMUNOLOGIC: Absent: easy bleeding, easy bruising, lymphadenopathy, frequent infections ENDOCRINE: Absent: unexplained weight gain, unexplained weight loss, heat intolerance, cold intolerance NEUROLOGIC: Absent: headache, focal weakness or paresthesias, dizziness, unsteady gait, seizure, mental status changes, bladder or bowel incontinence PSYCHIATRIC: Absent: anxiety, depression, suicidal or homicidal ideation, hallucinations. PHYSICAL EXAMINATION Vital Signs - 24 hr 05/22/17 05/23/17 05/23/17 22:49 04:12 04:50 Temperature 98.7 F Pulse Rate 94 H 60 Pulse Rate [ 88 Apical] Respiratory 14 21 Rate Blood Pressure 203/91 201/94 Blood Pressure 211/94 [Left Arm] O2 Sat by Pulse 95 100 Oximetry (%) 05/23/17 05/23/17 05/23/17 06:45 10:19 10:43 Temperature Pulse Rate 78 103 H 101 H Pulse Rate [ Apical] Respiratory 18 Rate Blood Pressure 195/98 151/74 144/68 Blood Pressure [Left Arm] O2 Sat by Pulse Oximetry (%) GENERAL: Awake, alert, and in no acute distress. Resting comfortably in bed. HEAD: Normal with no signs of trauma. EYES: Pupils equal, round and reactive to light, extraocular movements intact, sclera anicteric, conjunctiva clear. NECK: Normal range of motion, supple. +Hepatojugular reflex LUNGS: Breath sounds equal, clear to auscultation bilaterally. No wheezes, and no crackles. No accessory muscle use. HEART: Regular rate and rhythm, normal S1 and S2 without murmur, rub or gallop. ABDOMEN: Soft, nontender, not distended, normoactive bowel sounds, no guarding, no rebound, no masses. LOWER EXTREMITIES: 2+ posterior tibial pulses. Warm, edematous and erythematous LLE and L patella. Edematous RLE NEUROLOGICAL: mild confusion, but possible this is patient's baseline. Laboratory Tests 05/23/17 05/23/17 05/23/17 01:15 01:15 01:15 WBC 15.2 H D Hgb 12.8 Hct 38.1 Plt Count 299 D PT with INR 14.50 H INR 1.28 H Random Glucose 278 H D Hemoglobin A1c % Urine Protein Urine Glucose (UA) Urine Blood 05/23/17 05/23/17 05/23/17 01:15 04:51 08:59 WBC 15.6 H Hgb Hct Plt Count 301 PT with INR INR Random Glucose 258 H Hemoglobin A1c % Urine Protein 3+ H D Urine Glucose (UA) 3+ H Urine Blood 1+ H 05/23/17 05/23/17 05/23/17 08:59 08:59 08:59 WBC Hgb Hct Plt Count PT with INR 15.00 H INR 1.33 H Random Glucose 222 H Hemoglobin A1c % 6.3 H D Urine Protein Urine Glucose (UA) Urine Blood Active Medications Generic Name Dose Route Start Last Admin Trade Name Freq PRN Reason Stop Dose Admin Acetaminophen 1,000 mg 05/23/17 05:32 Ofirmev Injection - IVPB Q6H PRN PAIN Chlorhexidine Gluconate 1 applic 05/23/17 22:00 Hibiclens For Decolonization - TP HS LULA Nicardipine HCl 25 mg/ 250 mls @ 25 mls/hr 05/23/17 04:45 05/23/17 10:19 Dextrose IVPB 10 mg/hr TITR LULA 100 mls/hr Protocol Administration 2.5 MG/HR Clindamycin Phosphate 600 mg in 50 mls @ 100 mls/hr 05/23/17 10:00 05/23/17 10:05 Cleocin 600 Mg Premix Ivpb - IVPB 100 mls/hr Q8H-IV LULA Administration Insulin Aspart 1 vial 05/23/17 07:00 05/23/17 10:17 Novolog Vial Sliding Scale - SQ Not Given ACHS LULA Protocol Mupirocin 1 applic 05/23/17 10:00 05/23/17 10:05 Bactroban Ointment (For Decolonization) - NS 05/28/17 09:59 1 applic BID LULA Administration Pantoprazole Sodium 40 mg 05/23/17 05:30 05/23/17 06:26 Protonix - PO 40 mg DAILY LULA Administration ASSESSMENT/PLAN: 54 y/o M with hx DM, uncontrolled HTN, previous CVA, who came to ED with swollen and painful feet, tactile fever, tachycardia, and headache for the past two days. CT head revealed L parietal hemorrhage and R basal ganglia hyperlucency, that may have resulted from an AVM. Pt admitted to ICU for continued management s/p L parietal hemorrhage. NEURO #s/p L parietal hemorrhage -On nicardipine gtt titrated up to 10 mg/hr -Keep systolic BP between 140-170 with slow reduction -Neurochecks q4hr -F/u Head CT w/o contrast tomorrow, to determine progress of bleed -F/u MRI w and w/o contrast to r/o any hemorrhage into met -On seizure prophylaxis - Keppra 500 IVPB BID -Discussed with Dr. 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 Bib BAHENA -F/u CXR- determine any infectious source of leukocytosis VASCULAR #r/o DVT -edematous lower extremities -edematous and erythematous L knee -F/u duplex -R/o DVT, cardiomyopathy ENDOCRINE #DM -ISS -BGM #Prophylaxis DVT: can start SCD's if doppler negative GI: protonix 40 mg PO qd #F/E/N -Will monitor electrolytes -NPO #Dispo Continued ICU monitoring and management. Dispo: We will continue to follow the patient. Thank you for this consultative opportunity. Visit type - Emergency Visit Emergency Visit: No - New Patient This patient is new to me today: Yes Date on this admission: 05/23/17 - Critical Care Critical Care patient: Yes Total Critical Care Time (in minutes): 42 Critical Care Statement: The care of this patient involved high complexity decision making to prevent further life threatening deterioration of the patient 's condition and/or to evaluate & treat vital organ system(s) failure or risk of failure.
[2017-05-23] MEDS ORDERED: HEMOQUE TEST 1 EACH EACH ONE (12:49)
--- NOTE | 2017-05-23 13:17 | PN ---
Teaching Attending Note Name of Resident: Ehsan Dover ATTENDING PHYSICIAN STATEMENT TIme of evaluation: 9:10 AM I saw and evaluated the patient. I reviewed the resident's note and discussed the case with the resident. I agree with the resident's findings and plan as documented. SUBJECTIVE: Patient seen and examined. Denies any headache, visual symptoms, chest pain, palpitations, dyspnea, dizziness, abdominal or urinary symptoms. Reports bilateral leg pain which is better. No other complaints. OBJECTIVE: Vital Signs Period Temp Pulse Resp BP Sys/Unger Pulse Ox Last 24 Hr 98.7 F 60-103 14-21 144-211/68-98 95-100 Intake & Output 05/20/17 05/21/17 05/22/17 05/23/17 23:59 23:59 23:59 23:59 Weight 180 lb General: sitting in bed in no acute distress HEENT: PERRLA, EOMI, Neck: soft, supple CVS: S1S2 regular Chest: CTAB, no rales or wheezing Abdomen: soft, obese, NT, positive bowel sounds extremities: bilateral trace pedal edema, no erythema warmth noted, positive pulses, minimal bilateral calf tenderness Neuro: AAOx3, facial symmetry, power 5/5, no pronator drift, tongue midline, EOMI, PERRLA, DTR bilaterally symmetric Home Medication List Medication Instructions Recorded Confirmed Type Phenazopyridine HCl 100 mg PO TID 01/12/14 05/23/17 History Active Medications Generic Name Dose Route Start Last Admin Trade Name Freq PRN Reason Stop Dose Admin Acetaminophen 1,000 mg 05/23/17 05:32 Ofirmev Injection - IVPB Q6H PRN PAIN Chlorhexidine Gluconate 1 applic 05/23/17 22:00 Hibiclens For Decolonization - TP HS [facility] Nicardipine HCl 25 mg/ 250 mls @ 25 mls/hr 05/23/17 04:45 05/23/17 10:19 Dextrose IVPB 10 mg/hr TITR L[facility]A 100 mls/hr Protocol Administration 2.5 MG/HR Clindamycin Phosphate 600 mg in 50 mls @ 100 mls/hr 05/23/17 10:00 05/23/17 10:05 Cleocin 600 Mg Premix Ivpb - IVPB 100 mls/hr Q8H-IV [facility] Administration Insulin Aspart 1 vial 05/23/17 07:00 05/23/17 10:17 Novolog Vial Sliding Scale - SQ Not Given ACHS [facility] Protocol Mupirocin 1 applic 05/23/17 10:00 05/23/17 10:05 Bactroban Ointment (For Decolonization) - NS 05/28/17 09:59 1 applic BID [facility] Administration Pantoprazole Sodium 40 mg 05/23/17 05:30 05/23/17 06:26 Protonix - PO 40 mg DAILY [facility] Administration Laboratory Results - last 24 hr 05/23/17 05/23/17 05/23/17 01:15 01:15 01:15 WBC 15.2 H D RBC 4.22 Hgb 12.8 Hct 38.1 MCV 90.4 MCH 30.3 MCHC 33.5 RDW 13.4 Plt Count 299 D MPV 9.0 Neutrophils % 82.4 D Lymphocytes % 5.3 L D Monocytes % 11.8 H Eosinophils % 0.0 D Basophils % 0.5 ESR PT with INR 14.50 H INR 1.28 H PTT (Actin FS) Sodium 136 Potassium 3.4 L Chloride 101 Carbon Dioxide 26 Anion Gap 9 BUN 21 H D Creatinine 1.5 H D Creat Clearance w eGFR 48.59 POC Glucometer Random Glucose 278 H D Hemoglobin A1c % Lactic Acid Uric Acid Calcium 7.5 L Phosphorus Magnesium Total Bilirubin 0.4 AST 12 L D ALT 34 D Alkaline Phosphatase 84 Creatine Kinase Troponin I C-Reactive Protein Total Protein 6.2 L Albumin 2.2 L D Urine Color Urine Appearance Urine pH Ur Specific [place] Urine Protein Urine Glucose (UA) Urine Ketones Urine Blood Urine Nitrite Urine Bilirubin Urine Urobilinogen Ur Leukocyte Esterase Ur Epithelial Cells Urine Bacteria Hyaline Casts Blood Type Antibody Screen 05/23/17 05/23/17 05/23/17 01:15 01:15 01:15 WBC RBC Hgb Hct MCV MCH MCHC RDW Plt Count MPV Neutrophils % Lymphocytes % Monocytes % Eosinophils % Basophils % ESR PT with INR INR PTT (Actin FS) Sodium Potassium Chloride Carbon Dioxide Anion Gap BUN Creatinine Creat Clearance w eGFR POC Glucometer Random Glucose Hemoglobin A1c % Lactic Acid 1.3 Uric Acid Calcium Phosphorus Magnesium Total Bilirubin AST ALT Alkaline Phosphatase Creatine Kinase 133 Troponin I < 0.02 C-Reactive Protein Total Protein Albumin Urine Color Yellow Urine Appearance Slcloudy Urine pH 5.0 Ur Specific [place] 1.022 Urine Protein 3+ H D Urine Glucose (UA) 3+ H Urine Ketones Negative Urine Blood 1+ H Urine Nitrite Negative Urine Bilirubin Negative Urine Urobilinogen Negative Ur Leukocyte Esterase Negative Ur Epithelial Cells Rare Urine Bacteria Rare Hyaline Casts 27 Blood Type Antibody Screen 05/23/17 05/23/17 05/23/17 01:15 01:15 04:51 WBC RBC Hgb Hct MCV MCH MCHC RDW Plt Count MPV Neutrophils % Lymphocytes % Monocytes % Eosinophils % Basophils % ESR 125 H PT with INR INR PTT (Actin FS) Sodium Potassium Chloride Carbon Dioxide Anion Gap BUN Creatinine Creat Clearance w eGFR POC Glucometer Random Glucose Hemoglobin A1c % Lactic Acid Uric Acid 6.3 Calcium Phosphorus Magnesium Total Bilirubin AST ALT Alkaline Phosphatase Creatine Kinase Troponin I C-Reactive Protein Cancelled Total Protein Albumin Urine Color Urine Appearance Urine pH Ur Specific [place] Urine Protein Urine Glucose (UA) Urine Ketones Urine Blood Urine Nitrite Urine Bilirubin Urine Urobilinogen Ur Leukocyte Esterase Ur Epithelial Cells Urine Bacteria Hyaline Casts Blood Type Antibody Screen 05/23/17 05/23/17 05/23/17 04:51 04:51 08:51 WBC RBC Hgb Hct MCV MCH MCHC RDW Plt Count MPV Neutrophils % Lymphocytes % Monocytes % Eosinophils % Basophils % ESR PT with INR INR PTT (Actin FS) Sodium 138 Potassium 3.7 Chloride 105 Carbon Dioxide 26 Anion Gap 7 L BUN 21 H Creatinine 1.3 Creat Clearance w eGFR POC Glucometer [phone] Random Glucose 258 H Hemoglobin A1c % Lactic Acid Uric Acid Calcium 7.1 L Phosphorus Magnesium Total Bilirubin AST ALT Alkaline Phosphatase Creatine Kinase Troponin I C-Reactive Protein Total Protein Albumin Urine Color Urine Appearance Urine pH Ur Specific [place] Urine Protein Urine Glucose (UA) Urine Ketones Urine Blood Urine Nitrite Urine Bilirubin Urine Urobilinogen Ur Leukocyte Esterase Ur Epithelial Cells Urine Bacteria Hyaline Casts Blood Type O POSITIVE Antibody Screen Negative 05/23/17 05/23/17 05/23/17 08:59 08:59 08:59 WBC 15.6 H RBC 3.96 L Hgb 11.7 Hct 35.8 MCV 90.3 MCH 29.5 MCHC 32.7 RDW 13.2 Plt Count 301 MPV 8.4 Neutrophils % 77.8 Lymphocytes % 8.8 D Monocytes % 12.9 H Eosinophils % 0.0 Basophils % 0.5 ESR PT with INR 15.00 H INR 1.33 H PTT (Actin FS) 31.5 Sodium 139 Potassium 3.6 Chloride 105 Carbon Dioxide 24 Anion Gap 10 BUN 19 H Creatinine 1.3 Creat Clearance w eGFR 57.31 POC Glucometer Random Glucose 222 H Hemoglobin A1c % Lactic Acid Uric Acid Calcium 7.3 L Phosphorus 3.2 Magnesium 2.1 Total Bilirubin 0.5 D AST 8 L D ALT 29 Alkaline Phosphatase 77 Creatine Kinase 111 Troponin I < 0.02 C-Reactive Protein 28.0 H Total Protein 5.7 L Albumin 2.0 L Urine Color Urine Appearance Urine pH Ur Specific [place] Urine Protein Urine Glucose (UA) Urine Ketones Urine Blood Urine Nitrite Urine Bilirubin Urine Urobilinogen Ur Leukocyte Esterase Ur Epithelial Cells Urine Bacteria Hyaline Casts Blood Type Antibody Screen 05/23/17 05/23/17 08:59 12:55 WBC RBC Hgb Hct MCV MCH MCHC RDW Plt Count MPV Neutrophils % Lymphocytes % Monocytes % Eosinophils % Basophils % ESR PT with INR INR PTT (Actin FS) Sodium Potassium Chloride Carbon Dioxide Anion Gap BUN Creatinine Creat Clearance w eGFR POC Glucometer [phone] Random Glucose Hemoglobin A1c % 6.3 H D Lactic Acid Uric Acid Calcium Phosphorus Magnesium Total Bilirubin AST ALT Alkaline Phosphatase Creatine Kinase Troponin I C-Reactive Protein Total Protein Albumin Urine Color Urine Appearance Urine pH Ur Specific [place] Urine Protein Urine Glucose (UA) Urine Ketones Urine Blood Urine Nitrite Urine Bilirubin Urine Urobilinogen Ur Leukocyte Esterase Ur Epithelial Cells Urine Bacteria Hyaline Casts Blood Type Antibody Screen Blood cultures pending CT brain: acute/subacute haemorrhage right basal ganglia, left parietal lobe with surrounding edema and ?linear haemorrhage in left frontal lobe CTAhead/neck: no focal stenosis, aneurysm, artery cutoff or vascular malformation noted. 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 -Acute/subacute Haemorrhage right basal ganglia, in left parietal lobe with surrounding edema, ?left frontal lobe, etiology from ?uncontrolled BP from non compliance, recurrent falls with trauma from ETOH use, CTA head/neck neg for vascular malformation, also infection/malignancy on differential but low suspicion currently. -Hypertensive emergency -Mild NOEL vs CKD stage II from diabetic nephropathy -LE pain -Leuocytosis, ?reactive -DM, ?non compliant -ETOH withdrawal seizures in 2013 -h/o Strep B agalactice infective endocarditis 08/2013. PLan: Neuro checks, aggressive BP control for goal SBP 140-160, Nicardipine drip, titrate up as needed, Neuro checks. Discussed with Dr. Smith, place on keppra x 7 days, Just had CTA head/neck, plan for repeat CT brain on 05/24 with close monitoring. Neurology input appreciated. MRI brain when stable and bleed has resolved. Blood cultures sent, follow up. ID input and 2D echo with additional w/u based on blood culture reports. No clinical evidence of LE cellulitis, d/c clindamycin. Monitor for now. LE dopplers. Trend WBC. Gentle hydration, monitor renal function and blood pressure. ISS, NPO for now. Check ETOH levels, drug screen, denies recent ETOH use but will need to watch out for ETOH withdrawals. Monitor lytes. BOrderline elevated INR, ?Hepatic, trend LFTs. Liver ultrasound when stable. Critically ill with intracranial and need for close BP and neurological status monitoring. Discussed care with ICU, Dr. Smith. Total critical care time spent 40 min.
[2017-05-23] MEDS: levETIRAcetam 500 MG/5 ML INJECTION VIAL IVPB SCH ×2 (15:00→22:35)
--- NOTE | 2017-05-23 16:36 | PN ---
Physical Exam: SUBJECTIVE: Patient seen and examined at bedside. Patient states that he has some pain in his legs. Denies chest pain, shortness of breath, nausea, vomiting OBJECTIVE: Vital Signs Period Temp Pulse Resp BP Sys/Unger Pulse Ox Last 24 Hr 98.7 F 60-103 14-21 144-211/68-98 95-100 GENERAL: The patient is awake, alert, and oriented x2, in no acute distress. Mildly tremulous. HEAD: Normal with no signs of trauma. EYES: PERRL, extraocular movements intact, sclera anicteric, conjunctiva clear. No ptosis. LUNGS: Breath sounds equal, clear to auscultation bilaterally, no wheezes, no crackles, no accessory muscle use. HEART: Regular rate and rhythm, S1, S2, no murmurs, rub or gallops appreciated. ABDOMEN: Soft, nontender, nondistended, normoactive bowel sounds, no guarding, no rebound, no hepatosplenomegaly, no masses. EXTREMITIES: 2+ pulses, warm, well-perfused, no edema. Patient unable to lift both legs bilaterally without pain. NEUROLOGICAL: Cranial nerves II through XII grossly intact. Normal speech, gait not observed. PSYCH: Normal mood, normal affect. SKIN: Warm, dry, normal turgor, no rashes or lesions noted Laboratory Results - last 24 hr 05/23/17 05/23/17 05/23/17 01:15 01:15 01:15 WBC 15.2 H D RBC 4.22 Hgb 12.8 Hct 38.1 MCV 90.4 MCH 30.3 MCHC 33.5 RDW 13.4 Plt Count 299 D MPV 9.0 Neutrophils % 82.4 D Lymphocytes % 5.3 L D Monocytes % 11.8 H Eosinophils % 0.0 D Basophils % 0.5 ESR PT with INR 14.50 H INR 1.28 H PTT (Actin FS) Sodium 136 Potassium 3.4 L Chloride 101 Carbon Dioxide 26 Anion Gap 9 BUN 21 H D Creatinine 1.5 H D Creat Clearance w eGFR 48.59 POC Glucometer Random Glucose 278 H D Hemoglobin A1c % Lactic Acid Uric Acid Calcium 7.5 L Phosphorus Magnesium Total Bilirubin 0.4 AST 12 L D ALT 34 D Alkaline Phosphatase 84 Creatine Kinase Troponin I C-Reactive Protein Total Protein 6.2 L Albumin 2.2 L D Urine Color Urine Appearance Urine pH Ur Specific [place] Urine Protein Urine Glucose (UA) Urine Ketones Urine Blood Urine Nitrite Urine Bilirubin Urine Urobilinogen Ur Leukocyte Esterase Ur Epithelial Cells Urine Bacteria Hyaline Casts Alcohol, Quantitative Blood Type Antibody Screen 05/23/17 05/23/17 05/23/17 01:15 01:15 01:15 WBC RBC Hgb Hct MCV MCH MCHC RDW Plt Count MPV Neutrophils % Lymphocytes % Monocytes % Eosinophils % Basophils % ESR PT with INR INR PTT (Actin FS) Sodium Potassium Chloride Carbon Dioxide Anion Gap BUN Creatinine Creat Clearance w eGFR POC Glucometer Random Glucose Hemoglobin A1c % Lactic Acid 1.3 Uric Acid Calcium Phosphorus Magnesium Total Bilirubin AST ALT Alkaline Phosphatase Creatine Kinase 133 Troponin I < 0.02 C-Reactive Protein Total Protein Albumin Urine Color Yellow Urine Appearance Slcloudy Urine pH 5.0 Ur Specific [place] 1.022 Urine Protein 3+ H D Urine Glucose (UA) 3+ H Urine Ketones Negative Urine Blood 1+ H Urine Nitrite Negative Urine Bilirubin Negative Urine Urobilinogen Negative Ur Leukocyte Esterase Negative Ur Epithelial Cells Rare Urine Bacteria Rare Hyaline Casts 27 Alcohol, Quantitative Blood Type Antibody Screen 05/23/17 05/23/17 05/23/17 01:15 01:15 04:51 WBC RBC Hgb Hct MCV MCH MCHC RDW Plt Count MPV Neutrophils % Lymphocytes % Monocytes % Eosinophils % Basophils % ESR 125 H PT with INR INR PTT (Actin FS) Sodium Potassium Chloride Carbon Dioxide Anion Gap BUN Creatinine Creat Clearance w eGFR POC Glucometer Random Glucose Hemoglobin A1c % Lactic Acid Uric Acid 6.3 Calcium Phosphorus Magnesium Total Bilirubin AST ALT Alkaline Phosphatase Creatine Kinase Troponin I C-Reactive Protein Cancelled Total Protein Albumin Urine Color Urine Appearance Urine pH Ur Specific [place] Urine Protein Urine Glucose (UA) Urine Ketones Urine Blood Urine Nitrite Urine Bilirubin Urine Urobilinogen Ur Leukocyte Esterase Ur Epithelial Cells Urine Bacteria Hyaline Casts Alcohol, Quantitative Blood Type Antibody Screen 05/23/17 05/23/17 05/23/17 04:51 04:51 08:51 WBC RBC Hgb Hct MCV MCH MCHC RDW Plt Count MPV Neutrophils % Lymphocytes % Monocytes % Eosinophils % Basophils % ESR PT with INR INR PTT (Actin FS) Sodium 138 Potassium 3.7 Chloride 105 Carbon Dioxide 26 Anion Gap 7 L BUN 21 H Creatinine 1.3 Creat Clearance w eGFR POC Glucometer [phone] Random Glucose 258 H Hemoglobin A1c % Lactic Acid Uric Acid Calcium 7.1 L Phosphorus Magnesium Total Bilirubin AST ALT Alkaline Phosphatase Creatine Kinase Troponin I C-Reactive Protein Total Protein Albumin Urine Color Urine Appearance Urine pH Ur Specific [place] Urine Protein Urine Glucose (UA) Urine Ketones Urine Blood Urine Nitrite Urine Bilirubin Urine Urobilinogen Ur Leukocyte Esterase Ur Epithelial Cells Urine Bacteria Hyaline Casts Alcohol, Quantitative Blood Type O POSITIVE Antibody Screen Negative 05/23/17 05/23/17 05/23/17 08:59 08:59 08:59 WBC 15.6 H RBC 3.96 L Hgb 11.7 Hct 35.8 MCV 90.3 MCH 29.5 MCHC 32.7 RDW 13.2 Plt Count 301 MPV 8.4 Neutrophils % 77.8 Lymphocytes % 8.8 D Monocytes % 12.9 H Eosinophils % 0.0 Basophils % 0.5 ESR PT with INR 15.00 H INR 1.33 H PTT (Actin FS) 31.5 Sodium 139 Potassium 3.6 Chloride 105 Carbon Dioxide 24 Anion Gap 10 BUN 19 H Creatinine 1.3 Creat Clearance w eGFR 57.31 POC Glucometer Random Glucose 222 H Hemoglobin A1c % Lactic Acid Uric Acid Calcium 7.3 L Phosphorus 3.2 Magnesium 2.1 Total Bilirubin 0.5 D AST 8 L D ALT 29 Alkaline Phosphatase 77 Creatine Kinase 111 Troponin I < 0.02 C-Reactive Protein 28.0 H Total Protein 5.7 L Albumin 2.0 L Urine Color Urine Appearance Urine pH Ur Specific [place] Urine Protein Urine Glucose (UA) Urine Ketones Urine Blood Urine Nitrite Urine Bilirubin Urine Urobilinogen Ur Leukocyte Esterase Ur Epithelial Cells Urine Bacteria Hyaline Casts Alcohol, Quantitative Blood Type Antibody Screen 05/23/17 05/23/17 05/23/17 08:59 12:55 13:50 WBC RBC Hgb Hct MCV MCH MCHC RDW Plt Count MPV Neutrophils % Lymphocytes % Monocytes % Eosinophils % Basophils % ESR PT with INR INR PTT (Actin FS) Sodium Potassium Chloride Carbon Dioxide Anion Gap BUN Creatinine Creat Clearance w eGFR POC Glucometer 221.09205 Random Glucose Hemoglobin A1c % 6.3 H D Lactic Acid Uric Acid Calcium Phosphorus Magnesium Total Bilirubin AST ALT Alkaline Phosphatase Creatine Kinase Troponin I C-Reactive Protein Total Protein Albumin Urine Color Urine Appearance Urine pH Ur Specific [place] Urine Protein Urine Glucose (UA) Urine Ketones Urine Blood Urine Nitrite Urine Bilirubin Urine Urobilinogen Ur Leukocyte Esterase Ur Epithelial Cells Urine Bacteria Hyaline Casts Alcohol, Quantitative < 5.0 Blood Type Antibody Screen Active Medications Generic Name Dose Route Start Last Admin Trade Name Freq PRN Reason Stop Dose Admin Acetaminophen 1,000 mg 05/23/17 05:32 Ofirmev Injection - IVPB Q6H PRN PAIN Chlorhexidine Gluconate 1 applic 05/23/17 22:00 Hibiclens For Decolonization - TP HS [facility] Nicardipine HCl 25 mg/ 250 mls @ 25 mls/hr 05/23/17 04:45 05/23/17 10:19 Dextrose IVPB 10 mg/hr TITR [facility] 100 mls/hr Protocol Administration 2.5 MG/HR Insulin Aspart 1 vial 05/23/17 07:00 05/23/17 10:17 Novolog Vial Sliding Scale - SQ Not Given ACHS [facility] Protocol Levetiracetam 500 mg 05/23/17 13:45 Keppra Injection - IVPB BID [facility] Mupirocin 1 applic 05/23/17 10:00 05/23/17 10:05 Bactroban Ointment (For Decolonization) - NS 05/28/17 09:59 1 applic BID [facility] Administration Pantoprazole Sodium 40 mg 05/23/17 05:30 05/23/17 06:26 Protonix - PO 40 mg DAILY [facility] Administration ASSESSMENT/PLAN: 56yo Malagasy-speaking M with significant history of DM, uncontrolled HTN, previous CVA noted from medical records who presented to the ED for painful feet and admitted to ICU for treatment of intracranial hemorrhage #Intracranial hemorrhage -continue nicardipine drip at 2.5mg/hr -Titrate to a BP goal of 140-160 systolic and 80-90 diastolic -Q1 neurochecks -CT brain: acute/subacute hemorrhage in R basal ganglia posteriorly, 1.4x0.8 hemorrhage in L parietal lobe w/ surrounding edema and questionable hemorrhage in frontal lobe -f/u new CT brain tomorrow -Plan to get MRI after continued bleeding is ruled out -get tox screen -alc quant negative -appreciate neuro/surg recs -placed on keppra 500 BID #Hypertensive Emergency -BP initially 203/91 -Continue nicardipine drip and titrate as necessary to maintain BP goal 140-160/ 80-90 #Lower Extremity Pain -lower extremity dopplers negative, continue to monitor #NOEL -Most likely secondary to prerenal azotemia, resolving -Repeat BMP in AM 5) DM -BGM ACHS -Insulin sliding scale -A1C 6.3 FEN: -No standing fluids -Replete lytes as necessary -NPO PPX: DVT- SCDs applied to both legs GI- Protonix 40mg Dispo: Continue to monitor in ICU Visit type - Emergency Visit Emergency Visit: No - New Patient This patient is new to me today: Yes Date on this admission: 05/23/17 - Critical Care Critical Care patient: Yes Total Critical Care Time (in minutes): 35 Critical Care Statement: The care of this patient involved high complexity decision making to prevent further life threatening deterioration of the patient 's condition and/or to evaluate & treat vital organ system(s) failure or risk of failure.
[2017-05-23] MEDS ORDERED: FLU VACCINE QUAD 60 MCG/0.5 ML (MDV 17-18) IM ONE (18:15)
[2017-05-23] MEDS ORDERED: PNEUMOC 13-VAL CONJ-DIP CRM/PF 0.5 ML DISP.SYRIN IM ONE (18:30)
[2017-05-23] MEDS: CHLORHEXIDINE GLUCONATE 4% CLEANSER FOR DECOLONIZATION TP SCH (22:30)
[2017-05-23] MEDS: LABETALOL HCL 200 MG TABLET (FP) PO SCH (22:43)
[2017-05-24 06:14] LABS: BASOPHIL 0.4 % (0-2.0); EOSINOPHIL 0.2 % (0-4.5); MCHC 34.5 g/dl (32.0-35.9); MEAN PLT VOLUME 8.7 fl (7.5-11.1); NEUTROPHILS 77.9 % (42.8-82.8); PLATELET COUNT 275 K/MM3 (134-434); RDW 13.8 % (11.9-15.9)
[2017-05-24] MEDS: INSULIN SLIDING SCALE (NOVOLOG) 1 VIAL SQ SCH ×4 (06:26→22:13)
[2017-05-24] MEDS ORDERED: INSULIN (NOVOLOG MIX 70/30) 100 UNITS/ML MDV SQ ONE (06:38)
[2017-05-24 06:47] LABS: ANION GAP 7 (8-16); CALCIUM 7.7 mg/dL (8.5-10.1); CO2 27 mmol/L (21-32); CREATININE 1.7 mg/dL (0.7-1.3); GLUCOSE,RANDOM 230 mg/dL (74-106)
--- NOTE | 2017-05-24 09:00 | PN ---
Progress Note (short form) - Note Progress Note: Patient seen and examined in the ICU. Denies BISHOP, SOB, CP, dizziness, or BOV. Remains on IV Cardene. Intake & Output 05/21/17 05/22/17 05/23/17 05/24/17 23:59 23:59 23:59 23:59 Intake Total 650 250 Output Total 300 Balance 350 250 Weight 180 lb 194 lb 7.163 oz Last Vital Signs Temp Pulse Resp BP Pulse Ox 98.2 F 88 14 136/74 96 05/24/17 02:00 05/24/17 08:00 05/24/17 08:00 05/24/17 08:00 05/23/17 21:00 Active Medications Acetaminophen (Ofirmev Injection -) 1,000 mg IVPB Q6H PRN PRN Reason: PAIN Chlorhexidine Gluconate (Hibiclens For Decolonization -) 1 applic TP HS [facility] Last Admin: 05/23/17 22:30 Dose: 1 applic Nicardipine HCl 25 mg/ (Dextrose) 250 mls @ 25 mls/hr IVPB TITR LULA; 2.5 MG/HR PRN Reason: Protocol Last Admin: 05/23/17 22:00 Dose: 10 mg/hr, 100 mls/hr Nicardipine HCl 25 mg/ (Dextrose) 250 mls @ 25 mls/hr IVPB TITR LULA; 2.5 MG/HR PRN Reason: Protocol Last Admin: 05/23/17 22:35 Dose: 2.5 mg/hr, 25 mls/hr Insulin Aspart (Novolog Vial Sliding Scale -) 1 vial SQ ACHS [facility] PRN Reason: Protocol Last Admin: 05/24/17 06:26 Dose: 4 units Labetalol HCl (Normodyne -) 600 mg PO BID [facility] Last Admin: 05/23/17 22:43 Dose: 600 mg Levetiracetam (Keppra Injection -) 500 mg IVPB BID [facility] Last Admin: 05/23/17 22:35 Dose: 500 mg Mupirocin (Bactroban Ointment (For Decolonization) -) 1 applic NS BID [facility] Stop: 05/28/17 09:59 Last Admin: 05/23/17 22:30 Dose: 1 applic Pantoprazole Sodium (Protonix -) 40 mg PO DAILY [facility] Last Admin: 05/23/17 06:26 Dose: 40 mg Gen: Awake and alert Heart: S1S2 Lung: decreased breath sounds at the bases Abd: soft, nontender Ext: LE edema, warm Laboratory Results - last 24 hr 05/23/17 05/23/17 05/23/17 01:15 04:51 08:51 WBC RBC Hgb Hct MCV MCH MCHC RDW Plt Count MPV Neutrophils % Lymphocytes % Monocytes % Eosinophils % Basophils % PT with INR INR PTT (Actin FS) Sodium Potassium Chloride Carbon Dioxide Anion Gap BUN Creatinine Creat Clearance w eGFR POC Glucometer [phone] Random Glucose Hemoglobin A1c % Calcium Phosphorus Magnesium Total Bilirubin AST ALT Alkaline Phosphatase Creatine Kinase Troponin I C-Reactive Protein Cancelled Total Protein Albumin Ur Leukocyte Esterase Negative Alcohol, Quantitative 05/23/17 05/23/17 05/23/17 08:59 08:59 08:59 WBC 15.6 H RBC 3.96 L Hgb 11.7 Hct 35.8 MCV 90.3 MCH 29.5 MCHC 32.7 RDW 13.2 Plt Count 301 MPV 8.4 Neutrophils % 77.8 Lymphocytes % 8.8 D Monocytes % 12.9 H Eosinophils % 0.0 Basophils % 0.5 PT with INR 15.00 H INR 1.33 H PTT (Actin FS) 31.5 Sodium 139 Potassium 3.6 Chloride 105 Carbon Dioxide 24 Anion Gap 10 BUN 19 H Creatinine 1.3 Creat Clearance w eGFR 57.31 POC Glucometer Random Glucose 222 H Hemoglobin A1c % Calcium 7.3 L Phosphorus 3.2 Magnesium 2.1 Total Bilirubin 0.5 D AST 8 L D ALT 29 Alkaline Phosphatase 77 Creatine Kinase 111 Troponin I < 0.02 C-Reactive Protein 28.0 H Total Protein 5.7 L Albumin 2.0 L Ur Leukocyte Esterase Alcohol, Quantitative 05/23/17 05/23/17 05/23/17 08:59 12:55 13:50 WBC RBC Hgb Hct MCV MCH MCHC RDW Plt Count MPV Neutrophils % Lymphocytes % Monocytes % Eosinophils % Basophils % PT with INR INR PTT (Actin FS) Sodium Potassium Chloride Carbon Dioxide Anion Gap BUN Creatinine Creat Clearance w eGFR POC Glucometer [phone] Random Glucose Hemoglobin A1c % 6.3 H D Calcium Phosphorus Magnesium Total Bilirubin AST ALT Alkaline Phosphatase Creatine Kinase Troponin I C-Reactive Protein Total Protein Albumin Ur Leukocyte Esterase Alcohol, Quantitative < 5.0 05/23/17 05/23/17 05/24/17 17:52 22:16 05:05 WBC 10.0 D RBC 3.64 L Hgb 11.3 L Hct 32.7 L MCV 90.0 MCH 31.0 MCHC 34.5 RDW 13.8 Plt Count 275 MPV 8.7 Neutrophils % 77.9 Lymphocytes % 9.4 Monocytes % 12.1 H Eosinophils % 0.2 D Basophils % 0.4 PT with INR INR PTT (Actin FS) Sodium Potassium Chloride Carbon Dioxide Anion Gap BUN Creatinine Creat Clearance w eGFR POC Glucometer 155.57285 149.30796 Random Glucose Hemoglobin A1c % Calcium Phosphorus Magnesium Total Bilirubin AST ALT Alkaline Phosphatase Creatine Kinase Troponin I C-Reactive Protein Total Protein Albumin Ur Leukocyte Esterase Alcohol, Quantitative 05/24/17 05/24/17 05:05 06:21 WBC RBC Hgb Hct MCV MCH MCHC RDW Plt Count MPV Neutrophils % Lymphocytes % Monocytes % Eosinophils % Basophils % PT with INR INR PTT (Actin FS) Sodium 140 Potassium 3.7 Chloride 106 Carbon Dioxide 27 Anion Gap 7 L BUN 30 H D Creatinine 1.7 H D Creat Clearance w eGFR POC Glucometer 232.90956 Random Glucose 230 H Hemoglobin A1c % Calcium 7.7 L Phosphorus Magnesium Total Bilirubin AST ALT Alkaline Phosphatase Creatine Kinase Troponin I C-Reactive Protein Total Protein Albumin Ur Leukocyte Esterase Alcohol, Quantitative ASSESSMENT AND PLAN: Acute Intracranial Hemorrhage Hypertensive Urgency DM - titrate cardene gtt, keep BP < 140/90. - echocardiogram - Monitor off ABX - For repeat CT head - Mechanical VTE prophylaxis - Taper and D/C Cardene drip - continue ICU monitoring Dr Bettencourt Critical care time spent in reviewing chart, evaluating patent and formulating plan 35 min
[2017-05-24] MEDS ORDERED: ACETAMINOPHEN 325 MG TABLET (FP) PO PRN (09:21)
--- NOTE | 2017-05-24 09:29 | PN ---
Progress Note, Physician Chief Complaint: ID This 56 year old male [place] poorly adherant diabetic and hypertensive admitted with hypertesnive hemmoragic stroke. I am asked to see him for evaluation of LE pains. Patient is a poor historian and though alert does not seem to offer much meaningful history. May have a history of gout though again unclear details. In 2014 had Group A strep bacteremia Here he is febrile to 101. He appears to have bilateral knee pain more the right side. No chills. - Current Medication List Current Medications: Active Medications Acetaminophen (Ofirmev Injection -) 1,000 mg IVPB Q6H PRN PRN Reason: PAIN Acetaminophen (Tylenol -) 650 mg PO Q6H PRN PRN Reason: FEVER OR PAIN Chlorhexidine Gluconate (Hibiclens For Decolonization -) 1 applic TP HS [facility]ULA Last Admin: 05/23/17 22:30 Dose: 1 applic Nicardipine HCl 25 mg/ (Dextrose) 250 mls @ 25 mls/hr IVPB TITR [facility]ULA; 2.5 MG/HR PRN Reason: Protocol Last Admin: 05/23/17 22:00 Dose: 10 mg/hr, 100 mls/hr Nicardipine HCl 25 mg/ (Dextrose) 250 mls @ 25 mls/hr IVPB TITR LULA; 2.5 MG/HR PRN Reason: Protocol Last Admin: 05/23/17 22:35 Dose: 2.5 mg/hr, 25 mls/hr Insulin Aspart (Novolog Vial Sliding Scale -) 1 vial SQ ACHS LULA PRN Reason: Protocol Last Admin: 05/24/17 06:26 Dose: 4 units Labetalol HCl (Normodyne -) 600 mg PO BID [facility] Last Admin: 05/23/17 22:43 Dose: 600 mg Levetiracetam (Keppra Injection -) 500 mg IVPB BID [facility] Last Admin: 05/23/17 22:35 Dose: 500 mg Mupirocin (Bactroban Ointment (For Decolonization) -) 1 applic NS BID [facility]A Stop: 05/28/17 09:59 Last Admin: 05/23/17 22:30 Dose: 1 applic Pantoprazole Sodium (Protonix -) 40 mg PO DAILY [facility] Last Admin: 05/23/17 06:26 Dose: 40 mg - Objective Vital Signs: Vital Signs Temperature 101.2 F H 05/24/17 09:18 Pulse Rate 98 H 05/24/17 09:18 Respiratory Rate 19 05/24/17 09:18 Blood Pressure 166/79 05/24/17 09:18 O2 Sat by Pulse Oximetry (%) 96 05/23/17 21:00 Constitutional: Yes: Well Nourished, No Distress HENT: Yes: WNL, Atraumatic Neck: Yes: WNL, Supple Cardiovascular: Yes: Regular Rate and Rhythm, S1, S2. No: Murmur Respiratory: Yes: WNL, Regular, CTA Bilaterally Gastrointestinal: Yes: WNL, Normal Bowel Sounds, Soft. No: Tenderness Extremities: Yes: Other (Right knee effusion painful Left knee tender no effusion) Labs: CBC, BMP 05/24/17 05:05 05/24/17 05:05 INR, PTT INR 1.33 (0.82-1.09) H 05/23/17 08:59 Problem List - Problems (1) Hemorrhage, intracranial Code(s): I62.9 - NONTRAUMATIC INTRACRANIAL HEMORRHAGE, UNSPECIFIED (2) Hypertension Code(s): I10 - ESSENTIAL (PRIMARY) HYPERTENSION Qualifiers: Hypertension type: unspecified Qualified Code(s): I10 - Essential (primary ) hypertension (3) Type 2 diabetes mellitus Code(s): E11.9 - TYPE 2 DIABETES MELLITUS WITHOUT COMPLICATIONS Qualifiers: Diabetes mellitus complication status: with unspecified complications Diabetes mellitus ad terminal makeup operator insulin use: without ad terminal makeup operator use Qualified Code( s): E11.8 - Type 2 diabetes mellitus with unspecified complications Assessment/Plan Microbiology 09/02/13 03:03 Urine - Urine Clean Catch Urine Culture - Final Enterococcus Faecalis 09/02/13 01:30 Blood - Peripheral Venous Blood Culture - Final Strep Agalactiae Group B Enterococcus Faecalis 09/02/13 01:30 Blood - Peripheral Venous Blood Culture - Final Strep Agalactiae Group B Enterococcus Faecalis 05/23/17 01:15 Blood - Peripheral Venous Blood Culture - Preliminary NO GROWTH OBTAINED AFTER 24 HOURS, INCUBATION TO CONTINUE FOR 4 DAYS. 05/23/17 01:15 Blood - Peripheral Venous Blood Culture - Preliminary NO GROWTH OBTAINED AFTER 24 HOURS, INCUBATION TO CONTINUE FOR 4 DAYS. Laboratory Tests 09/05/13 09/09/13 05/23/17 10:50 06:00 01:15 WBC Hgb Plt Count ESR INR BUN 21 H D Creatinine 1.5 H D Creat Clearance w eGFR 48.59 Hemoglobin A1c % Uric Acid AST 12 L D ALT 34 D Alkaline Phosphatase 84 Total Protein 6.2 L Albumin 2.2 L D Urine Protein Urine Glucose (UA) Urine Ketones Urine Blood Ur Leukocyte Esterase NATHEN Screen Negative HIV-1 Ab Rapid Screen Negative 05/23/17 05/23/17 05/23/17 01:15 01:15 01:15 WBC Hgb Plt Count ESR 125 H INR BUN Creatinine Creat Clearance w eGFR Hemoglobin A1c % Uric Acid 6.3 AST ALT Alkaline Phosphatase Total Protein Albumin Urine Protein 3+ H D Urine Glucose (UA) 3+ H Urine Ketones Negative Urine Blood 1+ H Ur Leukocyte Esterase Negative NATHEN Screen HIV-1 Ab Rapid Screen 05/23/17 05/23/17 05/23/17 08:59 08:59 08:59 WBC 15.6 H Hgb Plt Count 301 ESR INR 1.33 H BUN Creatinine Creat Clearance w eGFR Hemoglobin A1c % 6.3 H D Uric Acid AST ALT Alkaline Phosphatase Total Protein Albumin Urine Protein Urine Glucose (UA) Urine Ketones Urine Blood Ur Leukocyte Esterase NATHEN Screen HIV-1 Ab Rapid Screen 05/24/17 05/24/17 05:05 05:05 WBC 10.0 D Hgb 11.3 L Plt Count 275 ESR INR BUN 30 H D Creatinine 1.7 H D Creat Clearance w eGFR Hemoglobin A1c % Uric Acid AST ALT Alkaline Phosphatase Total Protein Albumin Urine Protein Urine Glucose (UA) Urine Ketones Urine Blood Ur Leukocyte Esterase NATHEN Screen HIV-1 Ab Rapid Screen Assessment Polyarticular pains mostly right knee but left knee also tender. This would argue against a septic knee but still have to consider in this noncompliant diabetic man. He is febrile to 101 now this could be gout ! He has had Polymicrobial bacteremia Group B strep and enterococcus in 2014 ( not sure we saw the patient at that time). ECHO then and now neg vegetations. Uric acid normal does not rule out gout. Advise the following Repeat blood cultures now with fever CRP NATHEN Latex Lyme serology Orthopedic to aspirate for cultures and crystal studies Vancomycin and Ceftriaxone for now pending cultures Ultimately may need steroids as cannot give NSAIA Stresp pneumo AG Roge DRAKE CRP NATHEN Latex
[2017-05-24] MEDS ORDERED: PT OWN MED DRAWER 7, Y5N ONE (09:38)
--- NOTE | 2017-05-24 09:45 | PN ---
Progress Note, Physician - Current Medication List Current Medications: Active Medications Acetaminophen (Ofirmev Injection -) 1,000 mg IVPB Q6H PRN PRN Reason: PAIN Acetaminophen (Tylenol -) 650 mg PO Q6H PRN PRN Reason: FEVER OR PAIN Chlorhexidine Gluconate (Hibiclens For Decolonization -) 1 applic TP HS [facility] Last Admin: 05/23/17 22:30 Dose: 1 applic Nicardipine HCl 25 mg/ (Dextrose) 250 mls @ 25 mls/hr IVPB TITR LULA; 2.5 MG/HR PRN Reason: Protocol Last Admin: 05/23/17 22:00 Dose: 10 mg/hr, 100 mls/hr Nicardipine HCl 25 mg/ (Dextrose) 250 mls @ 25 mls/hr IVPB TITR LULA; 2.5 MG/HR PRN Reason: Protocol Last Admin: 05/23/17 22:35 Dose: 2.5 mg/hr, 25 mls/hr Ceftriaxone Sodium 2 gm/ (Dextrose) 100 mls @ 200 mls/hr IVPB DAILY LULA Vancomycin HCl 1,250 mg/ (Dextrose) 250 mls @ 250 mls/hr IVPB DAILY LULA PRN Reason: Protocol Insulin Aspart (Novolog Vial Sliding Scale -) 1 vial SQ ACHS LULA PRN Reason: Protocol Last Admin: 05/24/17 06:26 Dose: 4 units Labetalol HCl (Normodyne -) 600 mg PO BID [facility] Last Admin: 05/23/17 22:43 Dose: 600 mg Levetiracetam (Keppra Injection -) 500 mg IVPB BID [facility] Last Admin: 05/23/17 22:35 Dose: 500 mg Mupirocin (Bactroban Ointment (For Decolonization) -) 1 applic NS BID [facility] Stop: 05/28/17 09:59 Last Admin: 05/23/17 22:30 Dose: 1 applic Pantoprazole Sodium (Protonix -) 40 mg PO DAILY [facility] Last Admin: 05/23/17 06:26 Dose: 40 mg - Objective Vital Signs: Vital Signs Temperature 101.2 F H 05/24/17 09:18 Pulse Rate 98 H 05/24/17 09:18 Respiratory Rate 19 05/24/17 09:18 Blood Pressure 166/79 05/24/17 09:18 O2 Sat by Pulse Oximetry (%) 96 05/23/17 21:00 Labs: CBC, BMP 05/24/17 05:05 05/24/17 05:05 INR, PTT INR 1.33 (0.82-1.09) H 05/23/17 08:59 Problem List - Problems (1) Hemorrhage, intracranial Code(s): I62.9 - NONTRAUMATIC INTRACRANIAL HEMORRHAGE, UNSPECIFIED (2) Hypertension Code(s): I10 - ESSENTIAL (PRIMARY) HYPERTENSION Qualifiers: Hypertension type: unspecified Qualified Code(s): I10 - Essential (primary ) hypertension (3) Type 2 diabetes mellitus Code(s): E11.9 - TYPE 2 DIABETES MELLITUS WITHOUT COMPLICATIONS Qualifiers: Diabetes mellitus complication status: with unspecified complications Diabetes mellitus usp insulin use: without usp use Qualified Code( s): E11.8 - Type 2 diabetes mellitus with unspecified complications (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
[2017-05-24] MEDS: ACETAMINOPHEN 1000 MG/100 ML VIAL (NON FORMULARY) IVPB PRN (09:59)
[2017-05-24] MEDS: levETIRAcetam 500 MG/5 ML INJECTION VIAL IVPB SCH ×2 (10:00→22:12)
[2017-05-24] MEDS: MUPIROCIN 2% TOPICAL OINTMENT FOR DECOLONIZATION NS SCH ×2 (10:00→22:13)
[2017-05-24] MEDS: PANTOPRAZOLE 40 MG TABLET (FP) PO SCH (10:00)
[2017-05-24] MEDS: LABETALOL HCL 200 MG TABLET (FP) PO SCH ×2 (10:00→22:11)
--- NOTE | 2017-05-24 10:11 | PN ---
Physical Exam: SUBJECTIVE: Patient seen and examined at bedside. Patient states that he has some pain in both of his legs and swelling in his R knee. Patient was febrile overnight. Denies chest pain, shortness of breath, nausea, vomiting, fevers, chills. OBJECTIVE: Vital Signs Period Temp Pulse Resp BP Sys/Unger Pulse Ox Last 24 Hr 98 F-101.2 F 84-120 14-21 123-188/55-94 95-96 GENERAL: The patient is awake, alert, and oriented x3, in no acute distress. Mildly tremulous. HEAD: Normal with no signs of trauma. EYES: PERRL, extraocular movements intact, sclera anicteric, conjunctiva clear. No ptosis. LUNGS: Breath sounds equal, clear to auscultation bilaterally, no wheezes, no crackles, no accessory muscle use. HEART: Regular rate and rhythm, S1, S2, no murmurs, rub or gallops appreciated. ABDOMEN: Soft, nontender, nondistended, normoactive bowel sounds, no guarding, no rebound, no hepatosplenomegaly, no masses. EXTREMITIES: 2+ pulses, warm, well-perfused, b/l knee swelling, more on the R, with tenderness to palpation noted. Patient unable to lift both legs bilaterally without pain. NEUROLOGICAL: Cranial nerves II through XII grossly intact. Normal speech, gait not observed. PSYCH: Normal mood, normal affect. SKIN: Warm, dry, normal turgor, no rashes or lesions noted Laboratory Results - last 24 hr 05/23/17 05/23/17 05/23/17 01:15 12:55 13:50 WBC RBC Hgb Hct MCV MCH MCHC RDW Plt Count MPV Neutrophils % Lymphocytes % Monocytes % Eosinophils % Basophils % Sodium Potassium Chloride Carbon Dioxide Anion Gap BUN Creatinine POC Glucometer [phone] Random Glucose Calcium Ur Leukocyte Esterase Negative Alcohol, Quantitative < 5.0 05/23/17 05/23/17 05/24/17 17:52 22:16 05:05 WBC 10.0 D RBC 3.64 L Hgb 11.3 L Hct 32.7 L MCV 90.0 MCH 31.0 MCHC 34.5 RDW 13.8 Plt Count 275 MPV 8.7 Neutrophils % 77.9 Lymphocytes % 9.4 Monocytes % 12.1 H Eosinophils % 0.2 D Basophils % 0.4 Sodium Potassium Chloride Carbon Dioxide Anion Gap BUN Creatinine POC Glucometer [phone] Random Glucose Calcium Ur Leukocyte Esterase Alcohol, Quantitative 05/24/17 05/24/17 05:05 06:21 WBC RBC Hgb Hct MCV MCH MCHC RDW Plt Count MPV Neutrophils % Lymphocytes % Monocytes % Eosinophils % Basophils % Sodium 140 Potassium 3.7 Chloride 106 Carbon Dioxide 27 Anion Gap 7 L BUN 30 H D Creatinine 1.7 H D POC Glucometer [phone] Random Glucose 230 H Calcium 7.7 L Ur Leukocyte Esterase Alcohol, Quantitative Active Medications Generic Name Dose Route Start Last Admin Trade Name Freq PRN Reason Stop Dose Admin Acetaminophen 1,000 mg 05/23/17 05:32 05/24/17 09:59 Ofirmev Injection - IVPB 1,000 mg Q6H PRN Administration PAIN Acetaminophen 650 mg 05/24/17 09:21 Tylenol - PO Q6H PRN FEVER OR PAIN Chlorhexidine Gluconate 1 applic 05/23/17 22:00 05/23/17 22:30 Hibiclens For Decolonization - TP 1 applic HS [facility] Administration Nicardipine HCl 25 mg/ 250 mls @ 25 mls/hr 05/23/17 04:45 05/23/17 22:00 Dextrose IVPB 10 mg/hr TITR [facility] 100 mls/hr Protocol Administration 2.5 MG/HR Nicardipine HCl 25 mg/ 250 mls @ 25 mls/hr 05/23/17 22:15 05/23/17 22:35 Dextrose IVPB 2.5 mg/hr TITR LULA 25 mls/hr Protocol Administration 2.5 MG/HR Ceftriaxone Sodium 2 gm/ 100 mls @ 200 mls/hr 05/24/17 09:45 Dextrose IVPB DAILY [facility] Vancomycin HCl 1,250 mg/ 250 mls @ 166.667 mls/hr 05/24/17 09:45 Dextrose IVPB DAILY [facility] Protocol Insulin Aspart 1 vial 05/23/17 07:00 05/24/17 06:26 Novolog Vial Sliding Scale - SQ 4 units ACHS [facility]A Administration Protocol Labetalol HCl 600 mg 05/23/17 22:15 05/24/17 10:00 Normodyne - PO 600 mg BID [facility] Administration Levetiracetam 500 mg 05/23/17 13:45 05/24/17 10:00 Keppra Injection - IVPB 500 mg BID [facility] Administration Mupirocin 1 applic 05/23/17 10:00 05/24/17 10:00 Bactroban Ointment (For Decolonization) - NS 05/28/17 09:59 1 applic BID [facility] Administration Pantoprazole Sodium 40 mg 05/23/17 05:30 05/24/17 10:00 Protonix - PO 40 mg DAILY [facility] Administration ASSESSMENT/PLAN: 56yo Mongolian-speaking M with significant history of DM, uncontrolled HTN, previous CVA noted from medical records who presented to the ED for painful feet and admitted to ICU for treatment of intracranial hemorrhage #Intracranial hemorrhage -continue nicardipine drip at 2.5mg/hr -Titrate to a BP goal of 140-160 systolic and 80-90 diastolic -neurochecks -CT brain: acute/subacute hemorrhage in R basal ganglia posteriorly, 1.4x0.8 hemorrhage in L parietal lobe w/ surrounding edema and questionable hemorrhage in frontal lobe -f/u new CT brain today -Plan to get MRI after continued bleeding is ruled out -get tox screen -alc quant negative -appreciate neuro/surg recs -placed on keppra 500 BID #Hypertensive Emergency -BP initially 203/91 -Continue nicardipine drip and titrate as necessary to maintain BP goal 140-160/ 80-90 #Bilateral Knee Pain and swelling: unclear history of gout -f/u uric acid -f/u b/l knee imaging -ortho consult Dr. Wilson -lower extremity dopplers negative -ID consulted, started vancomycin and ceftriaxone -tylenol for pain -continue to monitor #NOEL -Most likely secondary to prerenal azotemia, resolving -Repeat BMP in AM 5) DM -BGM ACHS -Insulin sliding scale -A1C 6.3 FEN: -No standing fluids -Replete lytes as necessary -NPO PPX: DVT- SCDs applied to both legs GI- Protonix 40mg Dispo: Continue to monitor in ICU Visit type - Emergency Visit Emergency Visit: No - New Patient This patient is new to me today: No - Critical Care Critical Care patient: Yes Total Critical Care Time (in minutes): 35 Critical Care Statement: The care of this patient involved high complexity decision making to prevent further life threatening deterioration of the patient 's condition and/or to evaluate & treat vital organ system(s) failure or risk of failure.
--- NOTE | 2017-05-24 10:26 | PN ---
Progress Note (short form) - Note Progress Note: NEUROSURGERY No H/A No new complaints B knee pain ID input noted; d/w Dr Guan PE: Tmax 101.2; SBP fluctuating HEENT- NC/AT; neck- supple; Cor-RR; Lungs- CTA B; Abd- benign; Ext- B tender anterior knees with swelling A/A/Ox3 CN- non-focal; Motor- at least 4+/5 without drift; Sensation- intact LT; DTR- 1+ WBC 10; ESR 125; Cr 1.7 Blood culture pending Head CT- L parietal 1.5 x 2 cm subcortical ICH with edema; small R posterior putamen/IC hyperdensity CTA head - no clear aneurysm or AVM/aneurysm Probable hypertensive ICH SBP target range 140-170 with slow reduction F/u head CT to ascertain ICH stability No neurosurgical intervention indicated Management management of HTN, DM and mild renal insufficiency Ortho input recommended for knees
--- NOTE | 2017-05-24 11:53 | PN ---
Progress Note, Physician History of Present Illness: Patient presented to the ER with bilateral knee pain and was found to be hypertensive. He also reportedly at that time acknowledged having a headache. He had CT scan which revealed small left parietal hematoma. F/U imaging (CTA head and neck) revealed no aneurysms or AVM). He had been admitted in 2013 for ETOH withdrawal and was found then to be septic and diagnosed with endocarditis. He now acknowledges frontal headache. - Current Medication List Current Medications: Active Medications Acetaminophen (Ofirmev Injection -) 1,000 mg IVPB Q6H PRN PRN Reason: PAIN Last Admin: 05/24/17 09:59 Dose: 1,000 mg Acetaminophen (Tylenol -) 650 mg PO Q6H PRN PRN Reason: FEVER OR PAIN Chlorhexidine Gluconate (Hibiclens For Decolonization -) 1 applic TP HS [facility] Last Admin: 05/23/17 22:30 Dose: 1 applic Nicardipine HCl 25 mg/ (Dextrose) 250 mls @ 25 mls/hr IVPB TITR [facility]; 2.5 MG/HR PRN Reason: Protocol Last Admin: 05/23/17 22:00 Dose: 10 mg/hr, 100 mls/hr Nicardipine HCl 25 mg/ (Dextrose) 250 mls @ 25 mls/hr IVPB TITR [facility]; 2.5 MG/HR PRN Reason: Protocol Last Admin: 05/23/17 22:35 Dose: 2.5 mg/hr, 25 mls/hr Ceftriaxone Sodium 2 gm/ (Dextrose) 100 mls @ 200 mls/hr IVPB DAILY [facility] Vancomycin HCl 1,250 mg/ (Dextrose) 250 mls @ 166.667 mls/hr IVPB DAILY [facility] PRN Reason: Protocol Sodium Chloride (Normal Saline -) 1,000 mls @ 75 mls/hr IV ASDIR [facility] Insulin Aspart (Novolog Vial Sliding Scale -) 1 vial SQ ACHS [facility] PRN Reason: Protocol Last Admin: 05/24/17 06:26 Dose: 4 units Labetalol HCl (Normodyne -) 600 mg PO BID [facility] Last Admin: 05/24/17 10:00 Dose: 600 mg Levetiracetam (Keppra Injection -) 500 mg IVPB BID [facility] Last Admin: 05/24/17 10:00 Dose: 500 mg Mupirocin (Bactroban Ointment (For Decolonization) -) 1 applic NS BID [facility] Stop: 05/28/17 09:59 Last Admin: 05/24/17 10:00 Dose: 1 applic Pantoprazole Sodium (Protonix -) 40 mg PO DAILY [facility] Last Admin: 05/24/17 10:00 Dose: 40 mg - Objective Vital Signs: Vital Signs Temperature 101.2 F H 05/24/17 09:18 Pulse Rate 98 H 05/24/17 09:18 Respiratory Rate 19 05/24/17 09:18 Blood Pressure 166/79 05/24/17 09:18 O2 Sat by Pulse Oximetry (%) 96 05/23/17 21:00 Neurological: Yes: Other (Level Of Consciousness: Yes: Alert, Oriented to Person , Oriented to Place, Oriented to Time Eyes: Yes: FRANTZ Speech: WNL Cranial Nerves II-XII Intact: Yes DTR's: 2+ Left Bicep, 2+ Right Bicep, 2+ Left Tricep, 2+ Right Tricep, 2+ Left Brachioradialis, 2+ Right Brachioradialis Babinski: Absent Response to light touch: Abnormal Motor Strength: 5/5: Left Arm, reduced effort in legs due to pain) Labs: CBC, BMP 05/24/17 05:05 05/24/17 05:05 INR, PTT INR 1.33 (0.82-1.09) H 05/23/17 08:59 - ....Imaging Cat Scan: Report Reviewed, Image Reviewed Problem List - Problems (1) Hemorrhage, intracranial Code(s): I62.9 - NONTRAUMATIC INTRACRANIAL HEMORRHAGE, UNSPECIFIED (2) Hypertension Code(s): I10 - ESSENTIAL (PRIMARY) HYPERTENSION Qualifiers: Hypertension type: unspecified Qualified Code(s): I10 - Essential (primary ) hypertension (3) Type 2 diabetes mellitus Code(s): E11.9 - TYPE 2 DIABETES MELLITUS WITHOUT COMPLICATIONS Qualifiers: Diabetes mellitus complication status: with unspecified complications Diabetes mellitus physician/internist insulin use: without physician/internist use Qualified Code( s): E11.8 - Type 2 diabetes mellitus with unspecified complications Assessment/Plan Very peripheral subcortical intracerebral hemorrhage, atypical for hypertensive hemorrhage. His history of endocarditis puts him at risk for mycotic aneurysms , and though these don't usually bleed, this is possible. Its also possible that he bled into a metastatic lesion given the location near the sharma/white junction, and MRI with and without gadolinium would be worthwhile, though lesion may not be visible until bleed is absorbed, so f/u study may be necessary in a few months if nothing is found. I would also make sure that he doesn't have endocarditis again. Thanks.
[2017-05-24] MEDS: CEFTRIAXONE 2 GM in DEXTROSE 5%-WATER - 100 ML IVPB SCH ×2 (12:10)
[2017-05-24] MEDS: VANCOMYCIN 1,250 MG in DEXTROSE 5%-WATER - 250 ML IVPB SCH ×2 (12:11)
[2017-05-24 12:34] LABS: HIV 1 & 2 AB NEGATIVE; HIV 1 AGp24 NEGATIVE
[2017-05-24] MEDS: NICARDIPINE 25 MG in DEXTROSE 5%-WATER - 240 ML IVPB SCH ×2 (12:50→22:14)
[2017-05-24] MEDS: SODIUM CHLORIDE 1,000 ML IV SCH (12:51)
[2017-05-24 13:32] LABS: SODIUM,RANDOM URINE 12 MMOL/L
--- NOTE | 2017-05-24 13:51 | CON.ORTH ---
Consult Consult Specialty:: Orthopedic surgery Reason for Consultation:: Request aspiration RIGHT knee - History of Present Illness History of Present Illness: 56-year-old male with chief complaint of RIGHT knee pain and swelling. He also is admitted to the hospital for a cerebral hemorrhage. He also has mild LEFT knee pain. He is unsure what happened. He did not fall or have any injury. He has a possible history of gout. I was consulted to aspirate RIGHT knee. Denies other symptoms. 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 Home Medications - Allergies Allergies/Adverse Reactions: Allergies Allergy/AdvReac Type Severity Reaction Status Date / Time Penicillins Allergy Unknown Verified 05/22/17 22:49 - Home Medications Home Medications: Ambulatory Orders Folic Acid - 1 mg PO DAILY #30 tablet 09/12/13 Glipizide [Glucotrol -] 5 mg PO BIDAC #60 tablet 09/12/13 Metformin HCl [Glucophage -] 500 mg PO AM #30 tablet 09/12/13 Multivitamins [Multivit ([facility] Formulary)] 1 tab PO DAILY #30 tab 09/12/13 Phenazopyridine HCl 100 mg PO TID 01/12/14 Amlodipine Besylate [Norvasc -] 10 mg PO DAILY #30 tablet 01/15/14 Labetalol HCl [Normodyne -] 600 mg PO BID #120 tablet 01/15/14 Family Disease History - Family Disease History Family Disease History: Diabetes: Mother, Heart Disease: Grandparent (advanced age though) Physical Exam for Ortho Vital Signs: Vital Signs Temperature 99.8 F H 05/24/17 12:43 Pulse Rate 88 05/24/17 12:50 Respiratory Rate 22 05/24/17 12:43 Blood Pressure 146/74 05/24/17 12:50 O2 Sat by Pulse Oximetry (%) 96 05/23/17 21:00 Labs: CBC, BMP 05/24/17 05:05 05/24/17 05:05 INR, PTT INR 1.33 (0.82-1.09) H 05/23/17 08:59 Other Findings/Remarks: Patient is well-appearing and in no acute distress. He is resting comfortably in bed. The LEFT knee has no edema or erythema ecchymosis or skin breakage. There is mild medial joint line tenderness. He has full range of motion. RIGHT knee has a very large effusion and he has difficulty moving the knee. He does have mild tenderness. There is mild warmth but no redness. Imaging - Results X-ray: Image Reviewed (X-ray AP bilateral knee portable no acute fractures or dislocations.) Assessment/Plan Impression: RIGHT knee large effusion, rule out septic knee, rule out inflammatory process, rule out gout, rule out Lyme Plan: I discussed the situation with the patient and his intensive care unit doctor. Intensive care unit doctors requested along with the infectious disease doctor and aspiration of the RIGHT knee. I believe that this is indicated at this time I discussed with the patient the risks benefits alternatives. He is oriented had blood work to check for Lyme disease. Procedure: RIGHT knee aspiration: After discussion of the risks benefits alternatives the RIGHT knee was sterilely prepped and draped. 120 cc of straw- colored fluid was elicited without any evidence of pus or blood. This appeared to be inflammatory type fluid. The fluid was sent for cultures, cell count, crystal analysis. The patient tolerated the procedure well. He felt much better after the aspiration
[2017-05-24 14:14] LABS: SYNOVIAL FLUID LYMPHOCYTES 8 %; SYNOVIAL FLUID MONOCYTES 10 %; SYNOVIAL FLUID NEUTROPHILS 82 %
--- NOTE | 2017-05-24 14:53 | PN ---
Teaching Attending Note Name of Resident: Ehsan Dover ATTENDING PHYSICIAN STATEMENT Time of evaluation: 9;10 AM I saw and evaluated the patient. I reviewed the resident's note and discussed the case with the resident. I agree with the resident's findings and plan as documented. SUBJECTIVE: patient seen and examined, Currently denies any headache, chest pain, palpitations, dyspnea, or dizziness. Bilateral leg pain, reported in the knees earlier to ICU team, currently denies. OBJECTIVE: Vital Signs Period Temp Pulse Resp BP Sys/Unger Pulse Ox Last 24 Hr 98.2 F-101.2 F 84-120 14- 123-188/55-94 96 Intake & Output 05/21/17 05/22/17 05/23/17 05/24/17 23:59 23:59 23:59 23:59 Intake Total 650 610 Output Total 300 400 Balance 350 210 Weight 180 lb 194 lb 7.163 oz GEneral: sitting in bed having breakfast in no acute distress CVS:S1S2 regular Chest: CTAB, no rales or wheezing abdomen: soft, obese, NT, ND, positive bowel sounds extremities: b/l LE edema, RIght knee swelling, with some limitation and ROM. Home Medication List Medication Instructions Recorded Confirmed Type Phenazopyridine HCl 100 mg PO TID 01/12/14 05/23/17 History Active Medications Generic Name Dose Route Start Last Admin Trade Name Fremichelle PRN Reason Stop Dose Admin Acetaminophen 1,000 mg 05/23/17 05:32 05/24/17 09:59 Ofirmev Injection - IVPB 1,000 mg Q6H PRN Administration PAIN Acetaminophen 650 mg 05/24/17 09:21 Tylenol - PO Q6H PRN FEVER OR PAIN Chlorhexidine Gluconate 1 applic 05/23/17 22:00 05/23/17 22:30 Hibiclens For Decolonization - TP 1 applic HS [facility] Administration Nicardipine HCl 25 mg/ 250 mls @ 25 mls/hr 05/23/17 22:15 05/24/17 12:50 Dextrose IVPB 2.5 mg/hr TITR [facility] 25 mls/hr Protocol Administration 2.5 MG/HR Ceftriaxone Sodium 2 gm/ 100 mls @ 200 mls/hr 05/24/17 09:45 05/24/17 12:10 Dextrose IVPB 200 mls/hr DAILY [facility] Administration Vancomycin HCl 1,250 mg/ 250 mls @ 166.667 mls/hr 05/24/17 09:45 05/24/17 12: 11 Dextrose IVPB 166.667 mls/hr DAILY [facility] Administration Protocol Sodium Chloride 1,000 mls @ 75 mls/hr 05/24/17 12:00 05/24/17 12:51 Normal Saline - IV 75 mls/hr ASDIR [facility] Administration Insulin Aspart 1 vial 05/23/17 07:00 05/24/17 12:13 Novolog Vial Sliding Scale - SQ 6 units ACHS [facility] Administration Protocol Labetalol HCl 600 mg 05/23/17 22:15 05/24/17 10:00 Normodyne - PO 600 mg BID [facility] Administration Levetiracetam 500 mg 05/23/17 13:45 05/24/17 10:00 Keppra Injection - IVPB 500 mg BID [facility] Administration Mupirocin 1 applic 05/23/17 10:00 05/24/17 10:00 Bactroban Ointment (For Decolonization) - NS 05/28/17 09:59 1 applic BID [facility] Administration Pantoprazole Sodium 40 mg 05/23/17 05:30 05/24/17 10:00 Protonix - PO 40 mg DAILY [facility] Administration Microbiology 05/23/17 01:15 Blood - Peripheral Venous Blood Culture - Preliminary NO GROWTH OBTAINED AFTER 24 HOURS, INCUBATION TO CONTINUE FOR 4 DAYS. 05/23/17 01:15 Blood - Peripheral Venous Blood Culture - Preliminary NO GROWTH OBTAINED AFTER 24 HOURS, INCUBATION TO CONTINUE FOR 4 DAYS. 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 -Acute/subacute Haemorrhage right basal ganglia, in left parietal lobe with surrounding edema, ?left frontal lobe, etiology from ?uncontrolled BP from non compliance, recurrent falls with trauma from ETOH use, CTA head/neck neg for vascular malformation, also infection/malignancy on differential but low suspicion currently. -Hypertensive emergency -NOEL, worse today -Fevers, with bilateral LE pain and right knee pain with effusion s/p tap today , ?Gout, low suspicion for infectious process -Leuocytosis, ?reactive -DM, ?non compliant -ETOH withdrawal seizures in 2013 -h/o Strep B agalactice infective endocarditis 08/2013. PLan: Neuro checks, aggressive BP control for goal SBP 140-160, BP has been stable, Nicardipine drip, titrate down as needed, Neuro checks. Discussed with Dr. Smith, place on keppra x 7 days, Just had CTA head/neck, plan for repeat CT brain today with close monitoring. Neurology input appreciated. MRI brain when stable and bleed has resolved. Blood cultures sent, follow up. ID input and 2D echo with additional w/u based on blood culture reports. LE dopplers neg for DVT. RIght knee pain with effusion, h/o Gout, ?Etiology of fevers. Orthopedic input noted, s/p arthocentesis today, fluid studies so far consistent with inflammation, Follow up cultures. Ceftriaxone/vancomycin for now. Eventual steroids and d/c antibiotics if fluid cultures negative. Gentle hydration, monitor renal function , check post voidal scan, urine lytes, monitor renal function. ISS, NPO for now. Check ETOH levels, drug screen, denies recent ETOH use but will need to watch out for ETOH withdrawals. Monitor lytes. BOrderline elevated INR, ?Hepatic, trend LFTs. Liver ultrasound when stable. Critically ill with intracranial and need for close BP and neurological status monitoring.. Total critical care time spent 40 min.
[2017-05-24] MEDS: CHLORHEXIDINE GLUCONATE 4% CLEANSER FOR DECOLONIZATION TP SCH (22:12)
[2017-05-25] MEDS: INSULIN SLIDING SCALE (NOVOLOG) 1 VIAL SQ SCH ×4 (06:24→21:37)
[2017-05-25 07:02] LABS: ANION GAP 9 (8-16); CO2 24 mmol/L (21-32); CREATININE 1.5 mg/dL (0.7-1.3); GLUCOSE,RANDOM 171 mg/dL (74-106)
[2017-05-25] MEDS ORDERED: PT OWN MED DRAWER 7, Y5N ONE (09:01)
--- NOTE | 2017-05-25 09:19 | PN ---
Progress Note (short form) - Note Progress Note: Patient seen and examined in the ICU. Denies BISHOP, SOB, CP, dizziness, or BOV. Remains on IV Cardene at 2.5. S/P aspiration of right knee by ortho yesterday. Intake & Output 05/22/17 05/23/17 05/24/17 05/25/17 23:59 23:59 23:59 23:59 Intake Total 650 2185 1204 Output Total 300 1100 Balance 350 1085 1204 Weight 180 lb 194 lb 7.163 oz 195 lb 4 oz Last Vital Signs Temp Pulse Resp BP Pulse Ox 98.6 F 82 20 142/75 94 L 05/25/17 02:00 05/25/17 08:00 05/25/17 08:00 05/25/17 08:00 05/25/17 08:00 Active Medications Acetaminophen (Ofirmev Injection -) 1,000 mg IVPB Q6H PRN PRN Reason: PAIN Last Admin: 05/24/17 09:59 Dose: 1,000 mg Acetaminophen (Tylenol -) 650 mg PO Q6H PRN PRN Reason: FEVER OR PAIN Chlorhexidine Gluconate (Hibiclens For Decolonization -) 1 applic TP HS [facility]A Last Admin: 05/24/17 22:12 Dose: 1 applic Nicardipine HCl 25 mg/ (Dextrose) 250 mls @ 25 mls/hr IVPB TITR [facility]; 2.5 MG/HR PRN Reason: Protocol Last Admin: 05/24/17 22:14 Dose: 2.5 mg/hr, 25 mls/hr Ceftriaxone Sodium 2 gm/ (Dextrose) 100 mls @ 200 mls/hr IVPB DAILY [facility] Last Admin: 05/24/17 12:10 Dose: 200 mls/hr Vancomycin HCl 1,250 mg/ (Dextrose) 250 mls @ 166.667 mls/hr IVPB DAILY [facility] PRN Reason: Protocol Last Admin: 05/24/17 12:11 Dose: 166.667 mls/hr Sodium Chloride (Normal Saline -) 1,000 mls @ 75 mls/hr IV ASDIR [facility] Last Admin: 05/24/17 12:51 Dose: 75 mls/hr Insulin Aspart (Novolog Vial Sliding Scale -) 1 vial SQ ACHS [facility] PRN Reason: Protocol Last Admin: 05/25/17 06:24 Dose: Not Given Labetalol HCl (Normodyne -) 600 mg PO BID [facility] Last Admin: 05/24/17 22:11 Dose: 600 mg Levetiracetam (Keppra Injection -) 500 mg IVPB BID [facility] Last Admin: 05/24/17 22:12 Dose: 500 mg Mupirocin (Bactroban Ointment (For Decolonization) -) 1 applic NS BID [facility] Stop: 05/28/17 09:59 Last Admin: 05/24/17 22:13 Dose: 1 applic Pantoprazole Sodium (Protonix -) 40 mg PO DAILY [facility] Last Admin: 05/24/17 10:00 Dose: 40 mg Gen: Awake and alert Heart: S1S2 Lung: decreased breath sounds at the bases Abd: soft, nontender Ext: LE edema, warm ASSESSMENT AND PLAN: Acute Intracranial Hemorrhage Hypertensive Urgency DM - D/C Cardene drip and close monitoring of BP - ABX per ID - Mechanical VTE prophylaxis - continue ICU monitoring Dr Bettencourt Critical care time spent in reviewing chart, evaluating patent and formulating plan 35 min
[2017-05-25] MEDS: levETIRAcetam 500 MG/5 ML INJECTION VIAL IVPB SCH (09:44)
[2017-05-25] MEDS: LABETALOL HCL 200 MG TABLET (FP) PO SCH ×2 (09:45→21:11)
[2017-05-25] MEDS: CEFTRIAXONE 2 GM in DEXTROSE 5%-WATER - 100 ML IVPB SCH (09:46)
[2017-05-25] MEDS: VANCOMYCIN 1,250 MG in DEXTROSE 5%-WATER - 250 ML IVPB SCH (09:46)
[2017-05-25] MEDS: PANTOPRAZOLE 40 MG TABLET (FP) PO SCH (09:46)
[2017-05-25] MEDS: MUPIROCIN 2% TOPICAL OINTMENT FOR DECOLONIZATION NS SCH ×2 (09:54→21:11)
--- NOTE | 2017-05-25 11:15 | PN ---
Progress Note, Physician History of Present Illness: Awake, responsive C/O knee pain Remains febrile Synovial fluid 18K WBC Crystals, cultures pending WBC decreased 10K HIV negative - Current Medication List Current Medications: Active Medications Acetaminophen (Ofirmev Injection -) 1,000 mg IVPB Q6H PRN PRN Reason: PAIN Last Admin: 05/24/17 09:59 Dose: 1,000 mg Acetaminophen (Tylenol -) 650 mg PO Q6H PRN PRN Reason: FEVER OR PAIN Last Admin: 05/25/17 09:47 Dose: 650 mg Chlorhexidine Gluconate (Hibiclens For Decolonization -) 1 applic TP HS [facility] Last Admin: 05/24/17 22:12 Dose: 1 applic Ceftriaxone Sodium 2 gm/ (Dextrose) 100 mls @ 200 mls/hr IVPB DAILY [facility] Last Admin: 05/25/17 09:46 Dose: 200 mls/hr Vancomycin HCl 1,250 mg/ (Dextrose) 250 mls @ 166.667 mls/hr IVPB DAILY [facility] PRN Reason: Protocol Last Admin: 05/25/17 09:46 Dose: 166.667 mls/hr Sodium Chloride (Normal Saline -) 1,000 mls @ 75 mls/hr IV ASDIR [facility] Last Admin: 05/24/17 12:51 Dose: 75 mls/hr Insulin Aspart (Novolog Vial Sliding Scale -) 1 vial SQ ACHS [facility] PRN Reason: Protocol Last Admin: 05/25/17 06:24 Dose: Not Given Labetalol HCl (Normodyne -) 600 mg PO BID [facility] Last Admin: 05/25/17 09:45 Dose: 600 mg Levetiracetam (Keppra -) 500 mg PO BID [facility] Mupirocin (Bactroban Ointment (For Decolonization) -) 1 applic NS BID [facility] Stop: 05/28/17 09:59 Last Admin: 05/25/17 09:54 Dose: 1 applic Pantoprazole Sodium (Protonix -) 40 mg PO DAILY [facility] Last Admin: 05/25/17 09:46 Dose: 40 mg - Objective Vital Signs: Vital Signs Temperature 99.7 F H 05/25/17 10:00 Pulse Rate 84 05/25/17 10:03 Respiratory Rate 18 05/25/17 10:03 Blood Pressure 148/80 05/25/17 10:03 O2 Sat by Pulse Oximetry (%) 94 L 05/25/17 08:00 Constitutional: Yes: No Distress Cardiovascular: Yes: Regular Rate and Rhythm, S1, S2 Respiratory: Yes: Other (+ crepitations, bases bilaterally) Gastrointestinal: Yes: Normal Bowel Sounds, Soft. No: Tenderness Extremities: Yes: Other (+ bilateral knee swelling, bilateral pedal edema) Labs: CBC, BMP 05/24/17 05:05 05/25/17 05:20 INR, PTT INR 1.33 (0.82-1.09) H 05/23/17 08:59 Assessment/Plan S/P ICH R/O septic arthritis v. gout Await c/s Continue empiric ceftriaxone/ vancomycin
--- NOTE | 2017-05-25 12:07 | PN ---
Progress Note, Physician History of Present Illness: Patient presented to the ER with bilateral knee pain and was found to be hypertensive. He also reportedly at that time acknowledged having a headache. He had CT scan which revealed small left parietal hematoma. F/U imaging (CTA head and neck) revealed no aneurysms or AVM). He had been admitted in 2013 for ETOH withdrawal and was found then to be septic and diagnosed with endocarditis. He now acknowledges frontal headache. - Current Medication List Current Medications: Active Medications Acetaminophen (Ofirmev Injection -) 1,000 mg IVPB Q6H PRN PRN Reason: PAIN Last Admin: 05/24/17 09:59 Dose: 1,000 mg Acetaminophen (Tylenol -) 650 mg PO Q6H PRN PRN Reason: FEVER OR PAIN Last Admin: 05/25/17 09:47 Dose: 650 mg Chlorhexidine Gluconate (Hibiclens For Decolonization -) 1 applic TP HS [facility] Last Admin: 05/24/17 22:12 Dose: 1 applic Ceftriaxone Sodium 2 gm/ (Dextrose) 100 mls @ 200 mls/hr IVPB DAILY [facility] Last Admin: 05/25/17 09:46 Dose: 200 mls/hr Vancomycin HCl 1,250 mg/ (Dextrose) 250 mls @ 166.667 mls/hr IVPB DAILY [facility] PRN Reason: Protocol Last Admin: 05/25/17 09:46 Dose: 166.667 mls/hr Sodium Chloride (Normal Saline -) 1,000 mls @ 75 mls/hr IV ASDIR [facility] Last Admin: 05/24/17 12:51 Dose: 75 mls/hr Insulin Aspart (Novolog Vial Sliding Scale -) 1 vial SQ ACHS [facility] PRN Reason: Protocol Last Admin: 05/25/17 06:24 Dose: Not Given Labetalol HCl (Normodyne -) 600 mg PO BID [facility] Last Admin: 05/25/17 09:45 Dose: 600 mg Levetiracetam (Keppra -) 500 mg PO BID [facility] Mupirocin (Bactroban Ointment (For Decolonization) -) 1 applic NS BID [facility] Stop: 05/28/17 09:59 Last Admin: 05/25/17 09:54 Dose: 1 applic Pantoprazole Sodium (Protonix -) 40 mg PO DAILY [facility] Last Admin: 05/25/17 09:46 Dose: 40 mg - Objective Vital Signs: Vital Signs Temperature 99.7 F H 05/25/17 10:00 Pulse Rate 84 05/25/17 10:03 Respiratory Rate 18 05/25/17 10:03 Blood Pressure 148/80 05/25/17 10:03 O2 Sat by Pulse Oximetry (%) 94 L 05/25/17 08:00 Neurological: Yes: Alert, Oriented, Babinski negative, Cran Nerves II-XII Intact ...Motor Strength: WNL (legs limited by pain) Labs: CBC, BMP 05/24/17 05:05 05/25/17 05:20 INR, PTT INR 1.33 (0.82-1.09) H 05/23/17 08:59 Problem List - Problems (1) Hemorrhage, intracranial Code(s): I62.9 - NONTRAUMATIC INTRACRANIAL HEMORRHAGE, UNSPECIFIED (2) Hypertension Code(s): I10 - ESSENTIAL (PRIMARY) HYPERTENSION Qualifiers: Hypertension type: unspecified Qualified Code(s): I10 - Essential (primary ) hypertension (3) Type 2 diabetes mellitus Code(s): E11.9 - TYPE 2 DIABETES MELLITUS WITHOUT COMPLICATIONS Qualifiers: Diabetes mellitus complication status: with unspecified complications 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 His history of endocarditis puts him at risk for mycotic aneurysms , and though these don't usually bleed, this is possible. Its also possible that he bled into a metastatic lesion given the location near the sharma/white junction, and MRI with and without gadolinium would be worthwhile, though lesion may not be visible until bleed is absorbed, so f/u study may be necessary in a few months if nothing is found. I would also make sure that he doesn't have endocarditis again. Thanks.
[2017-05-25] MEDS: SODIUM CHLORIDE 1,000 ML IV SCH (12:28)
--- NOTE | 2017-05-25 14:08 | PN ---
Progress Note (short form) - Note Progress Note: Patient states his knees are feeling better. His cultures are so far normal and cell count is consistent with inflammatory arthritis. This may represent gout. Remainder of the tests including final cultures, crystal analysis, lab work for Lyme is still pending. Physical examination: He has much less effusion on the RIGHT side. There is still mild tenderness bilaterally but less than yesterday. Impression improving bilateral knee pain, pending final cultures, doubt septic arthritis. Likely consistent with inflammatory condition. At this point would continue treatment as per medicine and infectious disease. There is no indication for further invasive procedures including aspiration or surgical intervention on his knees at this time.
--- NOTE | 2017-05-25 16:56 | PN ---
Teaching Attending Note Name of Resident: . Time of evaluation: 9:15 AM SUBJECTIVE: Patient seen and examined. no headache. Knee pain better. No new complaints. OBJECTIVE: Vital Signs Period Temp Pulse Resp BP Sys/Unger Pulse Ox Last 24 Hr 98.6 F-102.1 F 71-133 14- 103-157/63-84 94-100 Intake & Output 05/22/17 05/23/17 05/24/17 05/25/17 23:59 23:59 23:59 23:59 Intake Total 650 2185 3579 Output Total 300 1100 1000 Balance 350 1085 2579 Weight 180 lb 194 lb 7.163 oz 195 lb 4 oz General: Sitting in bed in no acute distress CvS;S1S2 regular Chest: CTAB, no rales or wheezing Abdomen: soft, NT extremities improved right knee swelling, improved ROM Neuro unchanged exam. Home Medication List Medication Instructions Recorded Confirmed Type Phenazopyridine HCl 100 mg PO TID 01/12/14 05/23/17 History Active Medications Generic Name Dose Route Start Last Admin Trade Name Jovon PRN Reason Stop Dose Admin Acetaminophen 1,000 mg 05/23/17 05:32 05/24/17 09:59 Ofirmev Injection - IVPB 1,000 mg Q6H PRN Administration PAIN Acetaminophen 650 mg 05/24/17 09:21 05/25/17 09:47 Tylenol - PO 650 mg Q6H PRN Administration FEVER OR PAIN Amlodipine Besylate 10 mg 05/26/17 10:00 Norvasc - PO DAILY [facility] Chlorhexidine Gluconate 1 applic 05/23/17 22:00 05/24/17 22:12 Hibiclens For Decolonization - TP 1 applic HS [facility] Administration Ceftriaxone Sodium 2 gm/ 100 mls @ 200 mls/hr 05/24/17 09:45 05/25/17 09:46 Dextrose IVPB 200 mls/hr DAILY [facility] Administration Vancomycin HCl 1,250 mg/ 250 mls @ 166.667 mls/hr 05/24/17 09:45 05/25/17 09: 46 Dextrose IVPB 166.667 mls/hr DAILY [facility] Administration Protocol Sodium Chloride 1,000 mls @ 75 mls/hr 05/24/17 12:00 05/25/17 12:28 Normal Saline - IV 75 mls/hr ASDIR [facility] Administration Insulin Aspart 1 vial 05/23/17 07:00 05/25/17 16:34 Novolog Vial Sliding Scale - SQ 6 units ACHS [facility] Administration Protocol Labetalol HCl 600 mg 05/23/17 22:15 05/25/17 09:45 Normodyne - PO 600 mg BID [facility] Administration Levetiracetam 500 mg 05/29/17 23:00 Keppra - PO BID [facility] Mupirocin 1 applic 05/23/17 10:00 05/25/17 09:54 Bactroban Ointment (For Decolonization) - NS 05/28/17 09:59 1 applic BID [facility] Administration Pantoprazole Sodium 40 mg 05/23/17 05:30 05/25/17 09:46 Protonix - PO 40 mg DAILY [facility] Administration Laboratory Results - last 24 hr 05/24/17 05/24/17 05/24/17 10:35 10:35 17:11 Sodium Potassium Chloride Carbon Dioxide Anion Gap BUN Creatinine POC Glucometer 236.94908 Random Glucose Calcium C-Reactive Protein 27.8 H D Rheumatoid Factor < 10.0 05/24/17 05/25/17 05/25/17 22:10 05:20 05:43 Sodium 143 Potassium 3.8 Chloride 110 H Carbon Dioxide 24 Anion Gap 9 BUN 30 H Creatinine 1.5 H POC Glucometer 188.59415 185.79754 Random Glucose 171 H D Calcium 7.0 L C-Reactive Protein Rheumatoid Factor 05/25/17 05/25/17 12:25 16:30 Sodium Potassium Chloride Carbon Dioxide Anion Gap BUN Creatinine POC Glucometer 321.79473 262.80774 Random Glucose Calcium C-Reactive Protein Rheumatoid Factor Microbiology 05/24/17 12:15 Synovial Fluid - Knee Gram Stain - Final 05/24/17 12:15 Synovial Fluid - Knee Body Fluid Culture - Preliminary NO AEROBIC GROWTH, 24 HRS 05/24/17 10:35 Blood - Peripheral Venous Blood Culture - Preliminary NO GROWTH OBTAINED AFTER 24 HOURS, INCUBATION TO CONTINUE FOR 4 DAYS. 05/24/17 10:35 Blood - Peripheral Venous Blood Culture - Preliminary NO GROWTH OBTAINED AFTER 24 HOURS, INCUBATION TO CONTINUE FOR 4 DAYS. 05/23/17 01:15 Blood - Peripheral Venous Blood Culture - Preliminary NO GROWTH OBTAINED AFTER 48 HOURS, INCUBATION TO CONTINUE FOR 3 DAYS. 05/23/17 01:15 Blood - Peripheral Venous Blood Culture - Preliminary NO GROWTH OBTAINED AFTER 48 HOURS, INCUBATION TO CONTINUE FOR 3 DAYS. 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 -Acute/subacute Haemorrhage right basal ganglia, in left parietal lobe with surrounding edema, ?left frontal lobe, etiology from ?uncontrolled BP from non compliance, recurrent falls with trauma from ETOH use, CTA head/neck neg for vascular malformation, also infection/malignancy on differential but low suspicion currently. -Hypertensive emergency -NOLE, -Fevers, with bilateral LE pain and right knee pain with effusion s/p tap today , ?Gout, low suspicion for infectious process -Leuocytosis, ?reactive -DM, ?non compliant -ETOH withdrawal seizures in 2013 -h/o Strep B agalactice infective endocarditis 08/2013. PLan: BP improved. D/c nicardipine drip. On labatalol PO ;SBP 140a-150s, resume norvasc 10 mg in AM. Neuro checks. Change keppra to Po, total 7 days. CTA neg for aneurysm or malformation. Repeat CT Brain 05/24 stable. Neurology input appreciated. MRI brain when stable and bleed has resolved, likely outpatient. Blood cultures neg so far. ID input and 2D echo with additional w/u based on blood culture reports. LE dopplers neg for DVT. RIght knee pain with effusion, h/o Gout, s/p arthrocentesis 05/24, fluid so far consistent with inflammatory etiology. Follow up cultures and crystals.. Ceftriaxone/vancomycin day 2 for now. Eventual steroids and d/c antibiotics if fluid cultures negative. Gentle hydration, Cr improved , monitor renal function. ISS, diet as tolerated. Meds changed to PO ETOH level neg, no drug screen sent, will reorder. Denies recent ETOH use but will need to watch out for ETOH withdrawals. Monitor lytes. BOrderline elevated INR, ?Hepatic, trend LFTs. Liver ultrasound when stable. Critically ill with intracranial and need for close BP and neurological status monitoring.. Total critical care time spent 40 min. Discussed with body make up artist. Transfer out of ICU in 24 hours if BP stable and no new events.
[2017-05-25] MEDS: CHLORHEXIDINE GLUCONATE 4% CLEANSER FOR DECOLONIZATION TP SCH (21:11)
[2017-05-25 23:06] LABS: URINE MARIJUANA THC NEGATIVE ng/ml (CUTOFF=50)
[2017-05-26] MEDS ORDERED: LABETALOL HCL 5 MG/1 ML (100MG/20 ML VIAL) ONE (04:15)
[2017-05-26] MEDS ORDERED: LABETALOL HCL 5 MG/1 ML (100MG/20 ML VIAL) IVPUSH ONE ×3 (04:30→08:46)
[2017-05-26] MEDS: INSULIN SLIDING SCALE (NOVOLOG) 1 VIAL SQ SCH ×4 (06:14→21:33)
[2017-05-26 06:46] LABS: BASOPHIL 0.7 % (0-2.0); EOSINOPHIL 4.8 % (0-4.5); MCH 30.8 pg (25.7-33.7); MEAN CELL VOLUME 90.5 fl (80-96); MEAN PLT VOLUME 9.1 fl (7.5-11.1); NEUTROPHILS 68.2 % (42.8-82.8); PLATELET COUNT 321 K/MM3 (134-434); RDW 14.2 % (11.9-15.9); WHITE BLOOD COUNT 8.1 K/mm3 (4.0-10.0)
[2017-05-26 06:50] LABS: ALBUMIN 1.7 g/dl (3.4-5.0); ANION GAP 9 (8-16); CALCIUM 7.5 mg/dL (8.5-10.1); CO2 24 mmol/L (21-32); CREATININE 1.3 mg/dL (0.7-1.3); GLUCOSE,RANDOM 153 mg/dL (74-106); SGOT/AST 13 U/L (15-37); SGPT/ALT 53 U/L (12-78)
[2017-05-26 06:52] LABS: ALK PHOS 93 U/L (45-117); BILIRUBIN,TOTAL 0.2 mg/dL (0.2-1.0); TOT PROT 5.1 g/dl (6.4-8.2)
--- NOTE | 2017-05-26 07:56 | PN ---
Progress Note, Physician Chief Complaint: ID Appreciate orthopedic evaluation I agree that clinical picture & history of joint pains in past speaks to inflammatory arthritis no bacterial infection Says his knee pains better Vancomycin and Ceftriaxone continue - Current Medication List Current Medications: Active Medications Acetaminophen (Ofirmev Injection -) 1,000 mg IVPB Q6H PRN PRN Reason: PAIN Last Admin: 05/24/17 09:59 Dose: 1,000 mg Acetaminophen (Tylenol -) 650 mg PO Q6H PRN PRN Reason: FEVER OR PAIN Last Admin: 05/25/17 09:47 Dose: 650 mg Amlodipine Besylate (Norvasc -) 10 mg PO DAILY [facility] Chlorhexidine Gluconate (Hibiclens For Decolonization -) 1 applic TP HS [facility] Last Admin: 05/25/17 21:11 Dose: 1 applic Ceftriaxone Sodium 2 gm/ (Dextrose) 100 mls @ 200 mls/hr IVPB DAILY [facility] Last Admin: 05/25/17 09:46 Dose: 200 mls/hr Vancomycin HCl 1,250 mg/ (Dextrose) 250 mls @ 166.667 mls/hr IVPB DAILY [facility] PRN Reason: Protocol Last Admin: 05/25/17 09:46 Dose: 166.667 mls/hr Sodium Chloride (Normal Saline -) 1,000 mls @ 75 mls/hr IV ASDIR [facility] Last Admin: 05/25/17 12:28 Dose: 75 mls/hr Insulin Aspart (Novolog Vial Sliding Scale -) 1 vial SQ ACHS [facility] PRN Reason: Protocol Last Admin: 05/26/17 06:14 Dose: 2 units Labetalol HCl (Normodyne -) 600 mg PO BID [facility] Last Admin: 05/25/17 21:11 Dose: 600 mg Levetiracetam (Keppra -) 500 mg PO BID [facility] Mupirocin (Bactroban Ointment (For Decolonization) -) 1 applic NS BID [facility] Stop: 05/28/17 09:59 Last Admin: 05/25/17 21:11 Dose: 1 applic Pantoprazole Sodium (Protonix -) 40 mg PO DAILY [facility] Last Admin: 05/25/17 09:46 Dose: 40 mg - Objective Vital Signs: Vital Signs Temperature 99.5 F 05/26/17 06:00 Pulse Rate 74 05/26/17 06:00 Respiratory Rate 18 05/26/17 06:00 Blood Pressure 188/91 05/26/17 06:00 O2 Sat by Pulse Oximetry (%) 97 05/25/17 21:00 Constitutional: Yes: Well Nourished, No Distress HENT: Yes: WNL, Atraumatic Neck: Yes: WNL, Supple Cardiovascular: Yes: Regular Rate and Rhythm, S1, S2. No: Murmur Respiratory: Yes: WNL, Regular, CTA Bilaterally Gastrointestinal: Yes: Soft. No: Tenderness Extremities: Yes: Other (Right kne pain swelling less) Labs: CBC, BMP 05/26/17 05:00 05/26/17 05:00 INR, PTT INR 1.33 (0.82-1.09) H 05/23/17 08:59 Problem List - Problems (1) Hemorrhage, intracranial Code(s): I62.9 - NONTRAUMATIC INTRACRANIAL HEMORRHAGE, UNSPECIFIED (2) Hypertension Code(s): I10 - ESSENTIAL (PRIMARY) HYPERTENSION Qualifiers: Hypertension type: unspecified Qualified Code(s): I10 - Essential (primary ) hypertension (3) Type 2 diabetes mellitus Code(s): E11.9 - TYPE 2 DIABETES MELLITUS WITHOUT COMPLICATIONS Qualifiers: Diabetes mellitus complication status: with unspecified complications Diabetes mellitus terminal operations manager insulin use: without usp use Qualified Code( s): E11.8 - Type 2 diabetes mellitus with unspecified complications (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 05/24/17 10:35 Blood - Peripheral Venous Blood Culture - Preliminary NO GROWTH OBTAINED AFTER 24 HOURS, INCUBATION TO CONTINUE FOR 4 DAYS. 05/23/17 01:15 Blood - Peripheral Venous Blood Culture - Preliminary NO GROWTH OBTAINED AFTER 72 HOURS, INCUBATION TO CONTINUE FOR 2 DAYS. 05/23/17 01:15 Blood - Peripheral Venous Blood Culture - Preliminary NO GROWTH OBTAINED AFTER 72 HOURS, INCUBATION TO CONTINUE FOR 2 DAYS. Laboratory Tests 05/23/17 05/24/17 05/24/17 08:59 10:35 10:35 WBC Hgb Hct Plt Count Neutrophils % Lymphocytes % Monocytes % Eosinophils % INR 1.33 H BUN Creatinine Creat Clearance w eGFR Total Bilirubin AST ALT Alkaline Phosphatase Synovial WBC Synovial RBC Synovial Neutrophils Synovial Lymphocytes Synovial Monocytes Synovial Crystals Rheumatoid Factor < 10.0 NATHEN Screen Lyme Screen IgG & IgM HIV 1&2 Antibody Screen Negative HIV P24 Antigen Negative 05/24/17 05/24/17 05/25/17 12:15 12:15 05:20 WBC Hgb Hct Plt Count Neutrophils % Lymphocytes % Monocytes % Eosinophils % INR BUN Creatinine Creat Clearance w eGFR Total Bilirubin AST ALT Alkaline Phosphatase Synovial WBC 61477 Synovial RBC 3232 Synovial Neutrophils 82 Synovial Lymphocytes 8 Synovial Monocytes 10 Synovial Crystals Pending Rheumatoid Factor NATHEN Screen Pending Lyme Screen IgG & IgM Pending HIV 1&2 Antibody Screen HIV P24 Antigen 05/26/17 05/26/17 05:00 05:00 WBC 8.1 Hgb 9.8 L D Hct 28.9 L Plt Count 321 Neutrophils % 68.2 Lymphocytes % 15.1 D Monocytes % 11.2 H Eosinophils % 4.8 H D INR BUN 27 H Creatinine 1.3 Creat Clearance w eGFR 57.31 Total Bilirubin 0.2 D AST 13 L D ALT 53 D Alkaline Phosphatase 93 D Synovial WBC Synovial RBC Synovial Neutrophils Synovial Lymphocytes Synovial Monocytes Synovial Crystals Rheumatoid Factor NATHEN Screen Lyme Screen IgG & IgM HIV 1&2 Antibody Screen HIV P24 Antigen Assessment Inflammatory arthritis likely gout Acute hemmoragic stroke Hypertension Diabetes Plan Would stop antibiotics Await final cultures today neg to date Crystal studies Would treat with short course prednisone for arthritis Roge DRAKE
--- NOTE | 2017-05-26 08:30 | PN ---
Progress Note (short form) - Note Progress Note: NEUROSURGERY No H/A No new complaints R knee pain better S/p aspiration per ortho ID input noted PE: AF; SBP fluctuating 150-180's HEENT- NC/AT; neck- supple; Cor-RR; Lungs- CTA B; Abd- benign; Ext- B tender anterior knees with swelling A/A/Ox3 CN- non-focal; Motor- at least 4+/5 without drift; Sensation- intact LT; DTR- 1+ WBC 10; ESR 125; Cr 1.7 Blood culture - negative Head CT- L parietal 1.5 x 2 cm subcortical ICH with edema; small R posterior putamen/IC hyperdensity F/U Head CT- stable R posterior putamen and L parietal ICH CTA head - no clear aneurysm or AVM/aneurysm Probable hypertensive ICH SBP target range 140-170 with slow reduction No neurosurgical intervention indicated Management management of HTN, DM and mild renal insufficiency Advised compliance with medical regimen
--- NOTE | 2017-05-26 08:41 | PN ---
Physical Exam: SUBJECTIVE: Patient seen and examined at bedside. Patient is s/p knee joint aspiration. States he has pain in his legs. Denies chest pain, headache, shortness of breath, nausea, vomiting. OBJECTIVE: Vital Signs Period Temp Pulse Resp BP Sys/Unger Pulse Ox Last 24 Hr 99.2 F-99.7 F 70-84 16-20 145-194/79-93 97-98 GENERAL: The patient is awake, alert, and oriented x3, in no acute distress. HEAD: Normal with no signs of trauma. EYES: PERRL, extraocular movements intact, sclera anicteric, conjunctiva clear. No ptosis. LUNGS: Breath sounds equal, clear to auscultation bilaterally, no wheezes, no crackles, no accessory muscle use. HEART: Regular rate and rhythm, S1, S2, no murmurs, rub or gallops appreciated. ABDOMEN: Soft, nontender, nondistended, normoactive bowel sounds, no guarding, no rebound, no hepatosplenomegaly, no masses. EXTREMITIES: 2+ pulses, warm, well-perfused, b/l knee swelling, more on the R, with tenderness to palpation noted. Patient unable to lift both legs bilaterally without pain. NEUROLOGICAL: Cranial nerves II through XII grossly intact. Normal speech, gait not observed. PSYCH: Normal mood, normal affect. SKIN: Warm, dry, normal turgor, no rashes or lesions noted Laboratory Results - last 24 hr 05/24/17 05/24/17 05/25/17 10:35 10:35 12:25 WBC RBC Hgb Hct MCV MCH MCHC RDW Plt Count MPV Neutrophils % Lymphocytes % Monocytes % Eosinophils % Basophils % Sodium Potassium Chloride Carbon Dioxide Anion Gap BUN Creatinine Creat Clearance w eGFR POC Glucometer [phone] Random Glucose Calcium Total Bilirubin AST ALT Alkaline Phosphatase C-Reactive Protein 27.8 H D Total Protein Albumin Opiates Screen Methadone Screen Barbiturate Screen Phencyclidine Screen Ur Amphetamines Screen MDMA (Ecstasy) Screen Benzodiazepines Screen Cocaine Screen U Marijuana (THC) Screen Rheumatoid Factor < 10.0 05/25/17 05/25/17 05/25/17 16:30 21:35 22:40 WBC RBC Hgb Hct MCV MCH MCHC RDW Plt Count MPV Neutrophils % Lymphocytes % Monocytes % Eosinophils % Basophils % Sodium Potassium Chloride Carbon Dioxide Anion Gap BUN Creatinine Creat Clearance w eGFR POC Glucometer 262.59473 224.88062 Random Glucose Calcium Total Bilirubin AST ALT Alkaline Phosphatase C-Reactive Protein Total Protein Albumin Opiates Screen Positive Methadone Screen Negative Barbiturate Screen Negative Phencyclidine Screen Negative Ur Amphetamines Screen Negative MDMA (Ecstasy) Screen Positive Benzodiazepines Screen Negative Cocaine Screen Negative U Marijuana (THC) Screen Negative Rheumatoid Factor 05/26/17 05/26/17 05:00 05:00 WBC 8.1 RBC 3.19 L Hgb 9.8 L D Hct 28.9 L MCV 90.5 MCH 30.8 MCHC 34.0 RDW 14.2 Plt Count 321 MPV 9.1 Neutrophils % 68.2 Lymphocytes % 15.1 D Monocytes % 11.2 H Eosinophils % 4.8 H D Basophils % 0.7 Sodium 143 Potassium 4.0 Chloride 110 H Carbon Dioxide 24 Anion Gap 9 BUN 27 H Creatinine 1.3 Creat Clearance w eGFR 57.31 POC Glucometer Random Glucose 153 H Calcium 7.5 L Total Bilirubin 0.2 D AST 13 L D ALT 53 D Alkaline Phosphatase 93 D C-Reactive Protein Total Protein 5.1 L Albumin 1.7 L Opiates Screen Methadone Screen Barbiturate Screen Phencyclidine Screen Ur Amphetamines Screen MDMA (Ecstasy) Screen Benzodiazepines Screen Cocaine Screen U Marijuana (THC) Screen Rheumatoid Factor Active Medications Generic Name Dose Route Start Last Admin Trade Name Freq PRN Reason Stop Dose Admin Acetaminophen 1,000 mg 05/23/17 05:32 05/24/17 09:59 Ofirmev Injection - IVPB 1,000 mg Q6H PRN Administration PAIN Acetaminophen 650 mg 05/24/17 09:21 05/25/17 09:47 Tylenol - PO 650 mg Q6H PRN Administration FEVER OR PAIN Amlodipine Besylate 10 mg 05/26/17 10:00 Norvasc - PO DAILY [facility] Chlorhexidine Gluconate 1 applic 05/23/17 22:00 05/25/17 21:11 Hibiclens For Decolonization - TP 1 applic HS [facility] Administration Sodium Chloride 1,000 mls @ 75 mls/hr 05/24/17 12:00 05/25/17 12:28 Normal Saline - IV 75 mls/hr ASDIR [facility] Administration Nicardipine HCl 25 mg/ 250 mls @ 25 mls/hr 05/26/17 08:15 Dextrose IVPB TITR [facility] Protocol 2.5 MG/HR Insulin Aspart 1 vial 05/23/17 07:00 05/26/17 06:14 Novolog Vial Sliding Scale - SQ 2 units ACHS [facility] Administration Protocol Labetalol HCl 600 mg 05/26/17 14:00 Normodyne - PO TID [facility] Levetiracetam 500 mg 05/29/17 23:00 Keppra - PO BID [facility] Mupirocin 1 applic 05/23/17 10:00 05/25/17 21:11 Bactroban Ointment (For Decolonization) - NS 05/28/17 09:59 1 applic BID [facility] Administration Pantoprazole Sodium 40 mg 05/23/17 05:30 05/25/17 09:46 Protonix - PO 40 mg DAILY [facility] Administration Imaging: -CT brain: acute/subacute hemorrhage in R basal ganglia posteriorly, 1.4x0.8 hemorrhage in L parietal lobe w/ surrounding edema and questionable hemorrhage in frontal lobe -F/U CT brain reveals stable, unchanged hemorrhage in the R basal ganglia and L parietal lobe ASSESSMENT/PLAN: 56yo Azeri-speaking M with significant history of DM, uncontrolled HTN, previous CVA noted from medical records who presented to the ED for painful feet and admitted to ICU for treatment of intracranial hemorrhage. #Intracranial hemorrhage: likely secondary to uncontrolled hypertension -Plan to get MRI after continued bleeding is ruled out, possible outpatient MRI -tox screen positive for opiates and MDMA -alc quant negative -appreciate neuro/surg recs -placed on keppra 500 BID #Hypertensive Emergency -patients blood pressure off nicardipine increased to the 190s. Nicardipine restarted and labetalol pushes were given -as per neuro, continue nicardipine drip and titrate as necessary to maintain BP goal 140-160/80-90 -start amlodipine 10 QD -continue labetalol 600 TID #Bilateral Knee Pain and swelling: likely 2/2 gouty attack -pt s/p arthrocentesis: WBC 08372, RBC 3232, positive for monosodium urate crystals -uric acid normal -f/u b/l knee imaging -ortho consult Dr. Wilson appreciated -lower extremity dopplers negative -continue vancomycin and ceftriaxone day 3 -tylenol for pain -continue to monitor #NOEL -Most likely secondary to prerenal azotemia, resolving -Repeat BMP in AM #DM -BGM ACHS -Insulin sliding scale -A1C 6.3 FEN: -No standing fluids -Replete lytes as necessary -NPO PPX: DVT- SCDs applied to both legs GI- Protonix 40mg Dispo: Continue to monitor in ICU Visit type - Emergency Visit Emergency Visit: No - New Patient This patient is new to me today: No - Critical Care Critical Care patient: Yes Total Critical Care Time (in minutes): 30 Critical Care Statement: The care of this patient involved high complexity decision making to prevent further life threatening deterioration of the patient 's condition and/or to evaluate & treat vital organ system(s) failure or risk of failure.
[2017-05-26] MEDS: SODIUM CHLORIDE 1,000 ML IV SCH ×2 (08:44→12:43)
[2017-05-26] MEDS ORDERED: LABETALOL HCL 5 MG/1 ML (100MG/20 ML VIAL) IVPUSH PRN (08:50)
[2017-05-26] MEDS ORDERED: PT OWN MED DRAWER 7, Y5N ONE (09:00)
--- NOTE | 2017-05-26 09:00 | PN ---
Progress Note (short form) - Note Progress Note: Presented to the ER with bilateral knee pain and was found to be hypertensive. He also reportedly at that time acknowledged having a headache. He had CT scan which revealed small left parietal hematoma. F/U imaging (CTA head and neck) revealed no aneurysms or AVM). being treated for inflammatory arthritis and BP remains elevated mild BISHOP CT HD 05/24/17 TECHNIQUE: Sequential axial images were obtained from the base of the skull to the vertex. Since prior study of 05/23/2017, there has been no significant change. Again noted is a small focus of hemorrhage within the right basal ganglia and a larger area of hemorrhage within the left parietal lobe. No new areas of acute intracranial hemorrhage have developed. IMPRESSION: No significant change in 2 areas of acute intracranial hemorrhage since 2016. awake and alert/EOMI, no facial, no focal weakness, joints tender , plantars down AP : s/p hypertensive hemorrhage -- ideally reduce BP by 25% in the acute phase , no AP for now; cont statin. rehab when stable, rehab when stable. Dr Aguilar
[2017-05-26] MEDS: ACETAMINOPHEN 1000 MG/100 ML VIAL (NON FORMULARY) IVPB PRN (09:06)
[2017-05-26] MEDS: MUPIROCIN 2% TOPICAL OINTMENT FOR DECOLONIZATION NS SCH ×2 (09:07→21:26)
[2017-05-26] MEDS: PANTOPRAZOLE 40 MG TABLET (FP) PO SCH (09:08)
[2017-05-26] MEDS: amLODIPine BESYLATE 10 MG TABLET (FP) PO SCH (10:29)
[2017-05-26] MEDS: NICARDIPINE 25 MG in DEXTROSE 5%-WATER - 240 ML IVPB SCH (10:30)
[2017-05-26] MEDS: levETIRAcetam 500 MG TABLET (FP) PO SCH ×2 (10:33→21:25)
--- NOTE | 2017-05-26 12:02 | PN ---
Teaching Attending Note Name of Resident: Irvin Medina ATTENDING PHYSICIAN STATEMENT I saw and evaluated the patient. I reviewed the resident's note and discussed the case with the resident. I agree with the resident's findings and plan as documented. SUBJECTIVE: Patient seen and examined in the ICU. Denies BISHOP, SOB, CP, dizziness, or BOV. Needed to be restarted on IV Cardene drip due to hypertension. Still with bilateral knee pain. Intake & Output 05/23/17 05/24/17 05/25/17 05/26/17 23:59 23:59 23:59 23:59 Intake Total 650 2185 4609 840 Output Total 300 1100 2100 600 Balance 350 1085 2509 240 Weight 194 lb 7.163 oz 195 lb 4 oz 193 lb 14.4 oz Last Vital Signs Temp Pulse Resp BP Pulse Ox 100.2 F H 71 16 170/88 98 05/26/17 09:34 05/26/17 10:30 05/26/17 10:08 05/26/17 10:30 05/26/17 10:14 Active Medications Acetaminophen (Ofirmev Injection -) 1,000 mg IVPB Q6H PRN PRN Reason: PAIN Last Admin: 05/26/17 09:06 Dose: 1,000 mg Acetaminophen (Tylenol -) 650 mg PO Q6H PRN PRN Reason: FEVER OR PAIN Last Admin: 05/25/17 09:47 Dose: 650 mg Amlodipine Besylate (Norvasc -) 10 mg PO DAILY [facility] Last Admin: 05/26/17 10:29 Dose: 10 mg Chlorhexidine Gluconate (Hibiclens For Decolonization -) 1 applic TP HS [facility] Last Admin: 05/25/17 21:11 Dose: 1 applic Sodium Chloride (Normal Saline -) 1,000 mls @ 75 mls/hr IV ASDIR [facility] Last Admin: 05/26/17 08:44 Dose: 75 mls/hr Nicardipine HCl 25 mg/ (Dextrose) 250 mls @ 25 mls/hr IVPB TITR [facility]; 2.5 MG/HR PRN Reason: Protocol Last Admin: 05/26/17 10:30 Dose: 2.5 mg/hr, 25 mls/hr Insulin Aspart (Novolog Vial Sliding Scale -) 1 vial SQ ACHS [facility] PRN Reason: Protocol Last Admin: 05/26/17 06:14 Dose: 2 units Labetalol HCl (Normodyne -) 600 mg PO TID [facility] Labetalol HCl (Normodyne Injection -) 10 mg IVPUSH ONCE PRN PRN Reason: HYPERTENSION Levetiracetam (Keppra -) 500 mg PO BID [facility] Stop: 05/29/17 23:59 Last Admin: 05/26/17 10:33 Dose: 500 mg Mupirocin (Bactroban Ointment (For Decolonization) -) 1 applic NS BID [facility] Stop: 05/28/17 09:59 Last Admin: 05/26/17 09:07 Dose: 1 applic Pantoprazole Sodium (Protonix -) 40 mg PO DAILY [facility] Last Admin: 05/26/17 09:08 Dose: 40 mg Gen: Awake and alert Heart: S1S2 Lung: decreased breath sounds at the bases Abd: soft, nontender Ext: LE edema, warm Laboratory Results - last 24 hr 05/25/17 05/25/17 05/25/17 12:25 16:30 21:35 WBC RBC Hgb Hct MCV MCH MCHC RDW Plt Count MPV Neutrophils % Lymphocytes % Monocytes % Eosinophils % Basophils % Sodium Potassium Chloride Carbon Dioxide Anion Gap BUN Creatinine Creat Clearance w eGFR POC Glucometer 321.31880 262.06421 224.37182 Random Glucose Calcium Total Bilirubin AST ALT Alkaline Phosphatase Total Protein Albumin Opiates Screen Methadone Screen Barbiturate Screen Phencyclidine Screen Ur Amphetamines Screen MDMA (Ecstasy) Screen Benzodiazepines Screen Cocaine Screen U Marijuana (THC) Screen 05/25/17 05/26/17 05/26/17 22:40 05:00 05:00 WBC 8.1 RBC 3.19 L Hgb 9.8 L D Hct 28.9 L MCV 90.5 MCH 30.8 MCHC 34.0 RDW 14.2 Plt Count 321 MPV 9.1 Neutrophils % 68.2 Lymphocytes % 15.1 D Monocytes % 11.2 H Eosinophils % 4.8 H D Basophils % 0.7 Sodium 143 Potassium 4.0 Chloride 110 H Carbon Dioxide 24 Anion Gap 9 BUN 27 H Creatinine 1.3 Creat Clearance w eGFR 57.31 POC Glucometer Random Glucose 153 H Calcium 7.5 L Total Bilirubin 0.2 D AST 13 L D ALT 53 D Alkaline Phosphatase 93 D Total Protein 5.1 L Albumin 1.7 L Opiates Screen Positive Methadone Screen Negative Barbiturate Screen Negative Phencyclidine Screen Negative Ur Amphetamines Screen Negative MDMA (Ecstasy) Screen Positive Benzodiazepines Screen Negative Cocaine Screen Negative U Marijuana (THC) Screen Negative ASSESSMENT AND PLAN: Acute Intracranial Hemorrhage Hypertensive Urgency DM (?) Gout - Titrate oral BP Meds - Taper and D/C Cardene drip as tolerated - ABX per ID - Mechanical VTE prophylaxis - continue ICU monitoring Dr Bettencourt Critical care time spent in reviewing chart, evaluating patent and formulating plan 35 min
[2017-05-26] MEDS ORDERED: HEMOQUE TEST 1 EACH EACH ONE (12:18)
[2017-05-26] MEDS ORDERED: HEMOQUE CONTROL SOLUTION ONE ×2 (12:21→12:29)
[2017-05-26] MEDS ORDERED: INSULIN (NOVOLOG) ASPART 100 UNITS/ML 10ML VIAL ONE (12:41)
[2017-05-26] MEDS ORDERED: methylPREDNISolone NA SUCC 40 MG/1 ML VIAL IVPUSH ONE (13:18)
[2017-05-26] MEDS ORDERED: POLYETHYLENE GLYCOL 3350 119 GM BTL PO ONE (13:48)
[2017-05-26] MEDS ORDERED: predniSONE 10 MG TABLET (UD) PO SCH (14:45)
--- NOTE | 2017-05-26 14:57 | PN ---
Physical Exam: SUBJECTIVE: Patient seen and examined at bedside. Pt complains of b/l knee pain. No other complaints. Pt feels generally well. Pt's BP was 197 sys this am. Nicardipine drip was started, Labetalol pushes were given, and Losartan was started with plan to taper drip as tolerated. OBJECTIVE: Vital Signs Period Temp Pulse Resp BP Sys/Unger Pulse Ox Last 24 Hr 99.2 F-100.2 F 70-86 16-22 150-194/74-96 97-98 GENERAL: The patient is awake, alert, and fully oriented, in no acute distress. HEAD: Normal with no signs of trauma. EYES: PERRL, extraocular movements intact, sclera anicteric, conjunctiva clear. No ptosis. ENT: oropharynx clear without exudates, moist mucous membranes. NECK: Trachea midline, full range of motion, supple. LUNGS: Breath sounds equal, clear to auscultation bilaterally, no wheezes, no crackles, no accessory muscle use. HEART: Regular rate and rhythm, S1, S2 without murmur, rub or gallop. ABDOMEN: Soft, nontender, nondistended, normoactive bowel sounds, no guarding, no rebound, no hepatosplenomegaly, no masses. EXTREMITIES: 2+ pulses, warm, well-perfused, b/l edema. Tender knees b/l. Limited ROM. NEUROLOGICAL: Cranial nerves II through XII grossly intact. Normal speech, gait not observed. PSYCH: Normal mood, normal affect. SKIN: Warm, dry, normal turgor, no rashes or lesions noted Laboratory Results - last 24 hr 05/24/17 05/25/17 05/25/17 12:15 16:30 21:35 WBC RBC Hgb Hct MCV MCH MCHC RDW Plt Count MPV Neutrophils % Lymphocytes % Monocytes % Eosinophils % Basophils % Sodium Potassium Chloride Carbon Dioxide Anion Gap BUN Creatinine Creat Clearance w eGFR POC Glucometer 262.82742 224.85362 Random Glucose Calcium Total Bilirubin AST ALT Alkaline Phosphatase Total Protein Albumin Synovial Crystals Positive Opiates Screen Methadone Screen Barbiturate Screen Phencyclidine Screen Ur Amphetamines Screen MDMA (Ecstasy) Screen Benzodiazepines Screen Cocaine Screen U Marijuana (THC) Screen 05/25/17 05/26/17 05/26/17 22:40 05:00 05:00 WBC 8.1 RBC 3.19 L Hgb 9.8 L D Hct 28.9 L MCV 90.5 MCH 30.8 MCHC 34.0 RDW 14.2 Plt Count 321 MPV 9.1 Neutrophils % 68.2 Lymphocytes % 15.1 D Monocytes % 11.2 H Eosinophils % 4.8 H D Basophils % 0.7 Sodium 143 Potassium 4.0 Chloride 110 H Carbon Dioxide 24 Anion Gap 9 BUN 27 H Creatinine 1.3 Creat Clearance w eGFR 57.31 POC Glucometer Random Glucose 153 H Calcium 7.5 L Total Bilirubin 0.2 D AST 13 L D ALT 53 D Alkaline Phosphatase 93 D Total Protein 5.1 L Albumin 1.7 L Synovial Crystals Opiates Screen Positive Methadone Screen Negative Barbiturate Screen Negative Phencyclidine Screen Negative Ur Amphetamines Screen Negative MDMA (Ecstasy) Screen Positive Benzodiazepines Screen Negative Cocaine Screen Negative U Marijuana (THC) Screen Negative Active Medications Generic Name Dose Route Start Last Admin Trade Name Freq PRN Reason Stop Dose Admin Acetaminophen 1,000 mg 05/23/17 05:32 05/26/17 09:06 Ofirmev Injection - IVPB 1,000 mg Q6H PRN Administration PAIN Acetaminophen 650 mg 05/24/17 09:21 05/25/17 09:47 Tylenol - PO 650 mg Q6H PRN Administration FEVER OR PAIN Amlodipine Besylate 10 mg 05/26/17 10:00 05/26/17 10:29 Norvasc - PO 10 mg DAILY [facility] Administration Chlorhexidine Gluconate 1 applic 05/23/17 22:00 05/25/17 21:11 Hibiclens For Decolonization - TP 1 applic HS [facility] Administration Nicardipine HCl 25 mg/ 250 mls @ 25 mls/hr 05/26/17 08:15 05/26/17 10:30 Dextrose IVPB 2.5 mg/hr TITR [facility] 25 mls/hr Protocol Administration 2.5 MG/HR Insulin Aspart 1 vial 05/23/17 07:00 05/26/17 12:41 Novolog Vial Sliding Scale - SQ 4 units ACHS [facility] Administration Protocol Labetalol HCl 600 mg 05/26/17 14:00 Normodyne - PO TID [facility] Labetalol HCl 10 mg 05/26/17 08:50 Normodyne Injection - IVPUSH ONCE PRN HYPERTENSION Levetiracetam 500 mg 05/26/17 09:11 05/26/17 10:33 Keppra - PO 05/29/17 23:59 500 mg BID [facility] Administration Losartan Potassium 50 mg 05/26/17 13:30 Cozaar - PO DAILY [facility] Mupirocin 1 applic 05/23/17 10:00 05/26/17 09:07 Bactroban Ointment (For Decolonization) - NS 05/28/17 09:59 1 applic BID [facility] Administration Prednisone 30 mg 05/26/17 14:45 Deltasone - PO DAILY [facility] ASSESSMENT/PLAN: Pt is a 56M with PMH DM, HTN (not on meds), prior CVA who came to ED because of b/l knee pain. Pt was found to have hypertensive urgency, acute intracranial hemorrhage. Pt is admitted to ICU for intracranial bleed. #Intracranial hemorrhage -pt asymptomatic -incidental finding -neuro on board -neurosurg on board #HTN -possibly due to renal stenosis. Discovered in 2013, but pt unaware. Vasc consult called. -Nicardipine drip -Labetalol BID -Labetalol IV pushes -Losartan ordered #DM -ISS #Gout -crystal identified in R knee tap -steroids given (no NSAIDs in setting of bleed) #FEN -not on fluid -pseudohypocalcemia -DM diet #PPx -not on heparin in setting of bleed #Dispo -Pt admitted to ICU Irvin Medina MD PGY-1 ICU Visit type - Emergency Visit Emergency Visit: No - New Patient This patient is new to me today: No - Critical Care Critical Care patient: No - Discharge Referral Referred to [facility] No
[2017-05-26] MEDS: LOSARTAN POTASSIUM 50 MG TABLET (FP) PO SCH (15:43)
[2017-05-26] MEDS: LABETALOL HCL 200 MG TABLET (FP) PO SCH ×2 (15:43→21:26)
--- NOTE | 2017-05-26 17:26 | PN ---
Teaching Attending Note Name of Resident: Ehsan Dover ATTENDING PHYSICIAN STATEMENT Time of evaluation: 9;30 Am I saw and evaluated the patient. I reviewed the resident's note and discussed the case with the resident. I agree with the resident's findings and plan as documented. SUBJECTIVE: Patient seen and examined. reports some headache. Bilateral knee and some shoulder pain, with some improvement. No other new complaints. OBJECTIVE: Vital Signs Period Temp Pulse Resp BP Sys/Unger Pulse Ox Last 24 Hr 99.2 F-100.2 F 70-86 16-22 150-194/74-96 97-98 Intake & Output 05/23/17 05/24/17 05/25/17 05/26/17 23:59 23:59 23:59 23:59 Intake Total 650 2185 4609 2060 Output Total 300 1100 2100 1500 Balance 350 1085 2509 560 Weight 194 lb 7.163 oz 195 lb 4 oz 193 lb 14.4 oz General: sitting in bed in no acute distress CVS:S1S2 regular Chest: CTAB, no rales or wheezing Abdomen: soft, obese, NT extremities: Right knee swelling with some limitation in ROM Neuro unchanged exam Home Medication List Medication Instructions Recorded Confirmed Type Phenazopyridine HCl 100 mg PO TID 01/12/14 05/23/17 History Active Medications Generic Name Dose Route Start Last Admin Trade Name Jovon PRN Reason Stop Dose Admin Acetaminophen 1,000 mg 05/23/17 05:32 05/26/17 09:06 Ofirmev Injection - IVPB 1,000 mg Q6H PRN Administration PAIN Acetaminophen 650 mg 05/24/17 09:21 05/25/17 09:47 Tylenol - PO 650 mg Q6H PRN Administration FEVER OR PAIN Amlodipine Besylate 10 mg 05/26/17 10:00 05/26/17 10:29 Norvasc - PO 10 mg DAILY LULA Administration Chlorhexidine Gluconate 1 applic 05/23/17 22:00 05/25/17 21:11 Hibiclens For Decolonization - TP 1 applic HS [facility] Administration Nicardipine HCl 25 mg/ 250 mls @ 25 mls/hr 05/26/17 08:15 05/26/17 10:30 Dextrose IVPB 2.5 mg/hr TITR LULA 25 mls/hr Protocol Administration 2.5 MG/HR Insulin Aspart 1 vial 05/23/17 07:00 05/26/17 12:41 Novolog Vial Sliding Scale - SQ 4 units ACHS LULA Administration Protocol Labetalol HCl 600 mg 05/26/17 14:00 05/26/17 15:43 Normodyne - PO 600 mg TID [facility]A Administration Labetalol HCl 10 mg 05/26/17 08:50 Normodyne Injection - IVPUSH ONCE PRN HYPERTENSION Levetiracetam 500 mg 05/26/17 09:11 05/26/17 10:33 Keppra - PO 05/29/17 23:59 500 mg BID LULA Administration Losartan Potassium 50 mg 05/26/17 13:30 05/26/17 15:43 Cozaar - PO 50 mg DAILY L[facility] Administration Mupirocin 1 applic 05/23/17 10:00 05/26/17 09:07 Bactroban Ointment (For Decolonization) - NS 05/28/17 09:59 1 applic BID L[facility]A Administration Prednisone 30 mg 05/27/17 08:00 Deltasone - PO DAILY@0800 [facility] Laboratory Results - last 24 hr 05/24/17 05/25/17 05/25/17 12:15 05:20 21:35 WBC RBC Hgb Hct MCV MCH MCHC RDW Plt Count MPV Neutrophils % Lymphocytes % Monocytes % Eosinophils % Basophils % Sodium Potassium Chloride Carbon Dioxide Anion Gap BUN Creatinine Creat Clearance w eGFR POC Glucometer [phone] Random Glucose Calcium Total Bilirubin AST ALT Alkaline Phosphatase Total Protein Albumin Synovial Crystals Positive Opiates Screen Methadone Screen Barbiturate Screen Phencyclidine Screen Ur Amphetamines Screen MDMA (Ecstasy) Screen Benzodiazepines Screen Cocaine Screen U Marijuana (THC) Screen Lyme Screen IgG & IgM <0.91 05/25/17 05/26/17 05/26/17 22:40 05:00 05:00 WBC 8.1 RBC 3.19 L Hgb 9.8 L D Hct 28.9 L MCV 90.5 MCH 30.8 MCHC 34.0 RDW 14.2 Plt Count 321 MPV 9.1 Neutrophils % 68.2 Lymphocytes % 15.1 D Monocytes % 11.2 H Eosinophils % 4.8 H D Basophils % 0.7 Sodium 143 Potassium 4.0 Chloride 110 H Carbon Dioxide 24 Anion Gap 9 BUN 27 H Creatinine 1.3 Creat Clearance w eGFR 57.31 POC Glucometer Random Glucose 153 H Calcium 7.5 L Total Bilirubin 0.2 D AST 13 L D ALT 53 D Alkaline Phosphatase 93 D Total Protein 5.1 L Albumin 1.7 L Synovial Crystals Opiates Screen Positive Methadone Screen Negative Barbiturate Screen Negative Phencyclidine Screen Negative Ur Amphetamines Screen Negative MDMA (Ecstasy) Screen Positive Benzodiazepines Screen Negative Cocaine Screen Negative U Marijuana (THC) Screen Negative Lyme Screen IgG & IgM Microbiology 05/24/17 12:15 Synovial Fluid - Knee Gram Stain - Final 05/24/17 12:15 Synovial Fluid - Knee Body Fluid Culture - Final NO GROWTH OF AEROBIC ORGANISMS AFTER 48 HOURS INCUBATION 05/24/17 12:15 Synovial Fluid - Knee Anaerobic Culture - Final NO ANAEROBES WERE ISOLATED 05/24/17 10:35 Blood - Peripheral Venous Blood Culture - Preliminary NO GROWTH OBTAINED AFTER 48 HOURS, INCUBATION TO CONTINUE FOR 3 DAYS. 05/24/17 10:35 Blood - Peripheral Venous Blood Culture - Preliminary NO GROWTH OBTAINED AFTER 48 HOURS, INCUBATION TO CONTINUE FOR 3 DAYS. 05/23/17 01:15 Blood - Peripheral Venous Blood Culture - Preliminary NO GROWTH OBTAINED AFTER 72 HOURS, INCUBATION TO CONTINUE FOR 2 DAYS. 05/23/17 01:15 Blood - Peripheral Venous Blood Culture - Preliminary NO GROWTH OBTAINED AFTER 72 HOURS, INCUBATION TO CONTINUE FOR 2 DAYS. 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 -Acute/subacute Haemorrhage right basal ganglia, in left parietal lobe with surrounding edema, ?left frontal lobe, etiology from ?uncontrolled BP from non compliance, recurrent falls with trauma from ETOH use, CTA head/neck neg for vascular malformation, also infection/malignancy on differential but low suspicion currently. -Hypertensive emergency -NOEL, -Acute polyarticular Gout flare -Leuocytosis, ?reactive vs from gout -DM, ?non compliant -ETOH withdrawal seizures in 2013 -h/o Strep B agalactice infective endocarditis 08/2013. PLan: recurrent hypertension. Resumed on nicardipine drip this AM Resume norvasc/ losartan. Continue labetalol. . Neuro checks. Keppra total 7 day course CTA neg for aneurysm or malformation. Repeat CT Brain 05/24 stable. Neurology input appreciated. MRI brain when stable and bleed has resolved, likely outpatient. Blood cultures neg so far. ID input and 2D echo with additional w/u based on blood culture reports. ID/orthopedic input noted. Synovial fluid studies positive for crystals, studies consistent with inflammation. Discussed with Dr. Guan. Will start prednisone 30 mg daily. Cr improved, D/c IVF, monitor renal function on losartan. ISS, diet as tolerated. Meds changed to PO ETOH level neg, drug screen positive for opiates/ecstacy Denies recent ETOH use but will need to watch out for ETOH withdrawals. Monitor lytes. BOrderline elevated INR, ?Hepatic, trend LFTs. Liver ultrasound when stable. Critically ill with intracranial and need for close BP and neurological status monitoring.. Total critical care time spent 40 min.
[2017-05-26] MEDS: CHLORHEXIDINE GLUCONATE 4% CLEANSER FOR DECOLONIZATION TP SCH (21:25)
--- NOTE | 2017-05-26 23:13 | EKG ---
Test Reason : Blood Pressure : / mmHG Vent. Rate : 114 BPM Atrial Rate : 114 BPM P-R Int : 150 ms QRS Dur : 092 ms QT Int : 354 ms P-R-T Axes : 055 018 007 degrees QTc Int : 487 ms SINUS TACHYCARDIA MODERATE VOLTAGE CRITERIA FOR LVH, MAY BE NORMAL VARIANT NONSPECIFIC ST ABNORMALITY ABNORMAL ECG WHEN COMPARED WITH ECG OF 23-MAY-2017 00:38, NO SIGNIFICANT CHANGE WAS FOUND Confirmed by GURDEEP DRAEK, BART ([id number]) on 05/26/2017 11:12:55 PM Referred By: Confirmed By:BART MACKENZIE MD
[2017-05-27] MEDS: LABETALOL HCL 200 MG TABLET (FP) PO SCH ×3 (06:10→21:29)
[2017-05-27] MEDS: INSULIN SLIDING SCALE (NOVOLOG) 1 VIAL SQ SCH ×4 (06:18→21:30)
[2017-05-27 06:21] LABS: BASOPHIL 0.2 % (0-2.0); MCH 30.5 pg (25.7-33.7); MCHC 33.9 g/dl (32.0-35.9); MEAN CELL VOLUME 89.8 fl (80-96); MEAN PLT VOLUME 8.6 fl (7.5-11.1); NEUTROPHILS 88.4 % (42.8-82.8); PLATELET COUNT 364 K/MM3 (134-434); RDW 13.9 % (11.9-15.9); WHITE BLOOD COUNT 9.7 K/mm3 (4.0-10.0)
[2017-05-27] MEDS ORDERED: HEMOQUE TEST 1 EACH EACH ONE (06:42)
[2017-05-27 06:50] LABS: ALBUMIN 1.8 g/dl (3.4-5.0); ANION GAP 9 (8-16); CALCIUM 7.6 mg/dL (8.5-10.1); CO2 22 mmol/L (21-32); CREATININE 1.3 mg/dL (0.7-1.3); SGOT/AST 11 U/L (15-37); SGPT/ALT 53 U/L (12-78)
[2017-05-27 06:52] LABS: ALK PHOS 113 U/L (45-117); BILIRUBIN,TOTAL 0.2 mg/dL (0.2-1.0); TOT PROT 5.6 g/dl (6.4-8.2)
[2017-05-27 06:59] LABS: GLUCOSE,RANDOM 321 mg/dL (74-106)
[2017-05-27] MEDS ORDERED: predniSONE 10 MG TABLET (UD) PO SCH (08:00)
[2017-05-27] MEDS: NICARDIPINE 25 MG in DEXTROSE 5%-WATER - 240 ML IVPB SCH (09:29)
[2017-05-27] MEDS ORDERED: PT OWN MED DRAWER 7, Y5N ONE (09:32)
[2017-05-27] MEDS: amLODIPine BESYLATE 10 MG TABLET (FP) PO SCH (09:32)
[2017-05-27] MEDS: levETIRAcetam 500 MG TABLET (FP) PO SCH ×2 (09:33→21:29)
[2017-05-27] MEDS: LOSARTAN POTASSIUM 50 MG TABLET (FP) PO SCH (09:33)
[2017-05-27] MEDS: MUPIROCIN 2% TOPICAL OINTMENT FOR DECOLONIZATION NS SCH (09:33)
--- NOTE | 2017-05-27 10:16 | PN ---
Progress Note (short form) - Note Progress Note: Final cultures from the aspiration are negative. There are positive for crystals. Diagnosis most likely gouty arthritis. We'll defer to medical team for continued care. Please reconsult as needed
--- NOTE | 2017-05-27 12:00 | PN ---
Teaching Attending Note Name of Resident: Irvin Medina ATTENDING PHYSICIAN STATEMENT I saw and evaluated the patient. I reviewed the resident's note and discussed the case with the resident. I agree with the resident's findings and plan as documented. SUBJECTIVE: Patient seen and examined in the ICU. Denies BISHOP, SOB, CP, dizziness, or BOV. Off IV Cardene drip. Still with bilateral knee pain, but better. Intake & Output 05/24/17 05/25/17 05/26/17 05/27/17 23:59 23:59 23:59 23:59 Intake Total 2185 4609 3545 680 Output Total 1100 2100 2600 700 Balance 1085 2509 945 -20 Weight 194 lb 7.163 oz 195 lb 4 oz 193 lb 14.4 oz 191 lb 3.2 oz Last Vital Signs Temp Pulse Resp BP Pulse Ox 98.8 F 80 20 166/86 95 05/27/17 09:44 05/27/17 09:44 05/27/17 09:44 05/27/17 09:44 05/27/17 08:00 Active Medications Acetaminophen (Ofirmev Injection -) 1,000 mg IVPB Q6H PRN PRN Reason: PAIN Last Admin: 05/26/17 09:06 Dose: 1,000 mg Acetaminophen (Tylenol -) 650 mg PO Q6H PRN PRN Reason: FEVER OR PAIN Last Admin: 05/25/17 09:47 Dose: 650 mg Amlodipine Besylate (Norvasc -) 10 mg PO DAILY LULA Last Admin: 05/27/17 09:32 Dose: 10 mg Chlorhexidine Gluconate (Hibiclens For Decolonization -) 1 applic TP HS LULA Last Admin: 05/26/17 21:25 Dose: 1 applic Nicardipine HCl 25 mg/ (Dextrose) 250 mls @ 25 mls/hr IVPB TITR LULA; 2.5 MG/HR PRN Reason: Protocol Last Admin: 05/27/17 09:29 Dose: Not Given Insulin Aspart (Novolog Vial Sliding Scale -) 1 vial SQ ACHS LULA PRN Reason: Protocol Last Admin: 05/27/17 11:33 Dose: 8 units Labetalol HCl (Normodyne -) 600 mg PO TID LULA Last Admin: 05/27/17 06:10 Dose: Not Given Labetalol HCl (Normodyne Injection -) 10 mg IVPUSH ONCE PRN PRN Reason: HYPERTENSION Levetiracetam (Keppra -) 500 mg PO BID [facility] Stop: 05/29/17 23:59 Last Admin: 05/27/17 09:33 Dose: 500 mg Losartan Potassium (Cozaar -) 50 mg PO DAILY [facility] Last Admin: 05/27/17 09:33 Dose: 50 mg Mupirocin (Bactroban Ointment (For Decolonization) -) 1 applic NS BID [facility] Stop: 05/28/17 09:59 Last Admin: 05/27/17 09:33 Dose: 1 applic Prednisone (Deltasone -) 30 mg PO DAILY@0800 [facility] Last Admin: 05/27/17 09:33 Dose: 30 mg Gen: Awake and alert Heart: S1S2 Lung: decreased breath sounds at the bases Abd: soft, nontender Ext: LE edema, warm Laboratory Results - last 24 hr 05/24/17 05/25/17 05/26/17 12:15 05:20 05:47 WBC RBC Hgb Hct MCV MCH MCHC RDW Plt Count MPV Neutrophils % Lymphocytes % Monocytes % Eosinophils % Basophils % Sodium Potassium Chloride Carbon Dioxide Anion Gap BUN Creatinine Creat Clearance w eGFR POC Glucometer [phone] Random Glucose Calcium Total Bilirubin AST ALT Alkaline Phosphatase Total Protein Albumin Synovial Crystals Positive NATHEN Screen Positive H NATHEN Homogeneous Pattern 1:80 NATHEN Nucleolar Pattern TNP NATHEN Midbody Pattern TNP NATHEN Speckled Pattern TNP NATHEN Centromere Pattern TNP Lyme Screen IgG & IgM <0.91 05/26/17 05/26/17 05/27/17 12:37 17:35 05:00 WBC 9.7 RBC 3.63 L Hgb 11.1 L D Hct 32.6 L MCV 89.8 MCH 30.5 MCHC 33.9 RDW 13.9 Plt Count 364 MPV 8.6 Neutrophils % 88.4 H D Lymphocytes % 6.1 L D Monocytes % 5.3 Eosinophils % 0.0 D Basophils % 0.2 Sodium Potassium Chloride Carbon Dioxide Anion Gap BUN Creatinine Creat Clearance w eGFR POC Glucometer 224.73653 256.11659 Random Glucose Calcium Total Bilirubin AST ALT Alkaline Phosphatase Total Protein Albumin Synovial Crystals NATHEN Screen NATHEN Homogeneous Pattern NATHEN Nucleolar Pattern NATHEN Midbody Pattern NATHEN Speckled Pattern NATHEN Centromere Pattern Lyme Screen IgG & IgM 05/27/17 05:00 WBC RBC Hgb Hct MCV MCH MCHC RDW Plt Count MPV Neutrophils % Lymphocytes % Monocytes % Eosinophils % Basophils % Sodium 141 Potassium 4.4 Chloride 110 H Carbon Dioxide 22 Anion Gap 9 BUN 29 H Creatinine 1.3 Creat Clearance w eGFR 57.31 POC Glucometer Random Glucose 321 H* D Calcium 7.6 L Total Bilirubin 0.2 AST 11 L ALT 53 Alkaline Phosphatase 113 D Total Protein 5.6 L Albumin 1.8 L Synovial Crystals NATHEN Screen NATHEN Homogeneous Pattern NATHEN Nucleolar Pattern NATHEN Midbody Pattern NATHEN Speckled Pattern NATHEN Centromere Pattern Lyme Screen IgG & IgM ASSESSMENT AND PLAN: Acute Intracranial Hemorrhage Hypertensive Urgency DM (?) Gout - Titrate oral BP Meds - Monitor off IV Cardene drip - Off ABX per ID - Mechanical VTE prophylaxis - Will medically treat for gout - 4W/4S monitoring Dr Bettencourt Critical care time spent in reviewing chart, evaluating patent and formulating plan 35 min
[2017-05-27] MEDS ORDERED: COLCHICINE 0.6 MG TABLET (FP) PO ONE (12:10)
[2017-05-27] MEDS ORDERED: COLCHICINE 0.6 MG TABLET (FP) PO SCH (13:30)
--- NOTE | 2017-05-27 13:39 | PN ---
Physical Exam: SUBJECTIVE: Patient seen and examined OBJECTIVE: Vital Signs Period Temp Pulse Resp BP Sys/Unger Pulse Ox Last 24 Hr 98.3 F-100.0 F 74-98 15-22 140-167/72-97 95-96 GENERAL: The patient is awake, alert, and fully oriented, in no acute distress. HEAD: Normal with no signs of trauma. EYES: PERRL, extraocular movements intact, sclera anicteric, conjunctiva clear. No ptosis. ENT: Ears normal, nares patent, oropharynx clear without exudates, moist mucous membranes. NECK: Trachea midline, full range of motion, supple. LUNGS: Breath sounds equal, clear to auscultation bilaterally, no wheezes, no crackles, no accessory muscle use. HEART: Regular rate and rhythm, S1, S2 without murmur, rub or gallop. ABDOMEN: Soft, nontender, nondistended, normoactive bowel sounds, no guarding, no rebound, no hepatosplenomegaly, no masses. EXTREMITIES: 2+ pulses, warm, well-perfused, no edema. NEUROLOGICAL: Cranial nerves II through XII grossly intact. Normal speech, gait not observed. PSYCH: Normal mood, normal affect. SKIN: Warm, dry, normal turgor, no rashes or lesions noted Laboratory Results - last 24 hr 05/24/17 05/25/17 05/26/17 12:15 05:20 05:47 WBC RBC Hgb Hct MCV MCH MCHC RDW Plt Count MPV Neutrophils % Lymphocytes % Monocytes % Eosinophils % Basophils % Sodium Potassium Chloride Carbon Dioxide Anion Gap BUN Creatinine Creat Clearance w eGFR POC Glucometer [phone] Random Glucose Calcium Total Bilirubin AST ALT Alkaline Phosphatase Total Protein Albumin Synovial Crystals Positive NATHEN Screen Positive H NATHEN Homogeneous Pattern 1:80 NATHEN Nucleolar Pattern TNP NATHEN Midbody Pattern TNP NATHEN Speckled Pattern TNP NATHEN Centromere Pattern TNP Lyme Screen IgG & IgM <0.91 05/26/17 05/26/17 05/27/17 12:37 17:35 05:00 WBC 9.7 RBC 3.63 L Hgb 11.1 L D Hct 32.6 L MCV 89.8 MCH 30.5 MCHC 33.9 RDW 13.9 Plt Count 364 MPV 8.6 Neutrophils % 88.4 H D Lymphocytes % 6.1 L D Monocytes % 5.3 Eosinophils % 0.0 D Basophils % 0.2 Sodium Potassium Chloride Carbon Dioxide Anion Gap BUN Creatinine Creat Clearance w eGFR POC Glucometer 224.37440 256.20861 Random Glucose Calcium Total Bilirubin AST ALT Alkaline Phosphatase Total Protein Albumin Synovial Crystals NATHEN Screen NATHEN Homogeneous Pattern NATHEN Nucleolar Pattern NATHEN Midbody Pattern NATHEN Speckled Pattern NATHEN Centromere Pattern Lyme Screen IgG & IgM 05/27/17 05/27/17 05/27/17 05:00 06:00 11:28 WBC RBC Hgb Hct MCV MCH MCHC RDW Plt Count MPV Neutrophils % Lymphocytes % Monocytes % Eosinophils % Basophils % Sodium 141 Potassium 4.4 Chloride 110 H Carbon Dioxide 22 Anion Gap 9 BUN 29 H Creatinine 1.3 Creat Clearance w eGFR 57.31 POC Glucometer 317.16526 305.25694 Random Glucose 321 H* D Calcium 7.6 L Total Bilirubin 0.2 AST 11 L ALT 53 Alkaline Phosphatase 113 D Total Protein 5.6 L Albumin 1.8 L Synovial Crystals NATHEN Screen NATHEN Homogeneous Pattern NATHEN Nucleolar Pattern NATHEN Midbody Pattern NATHEN Speckled Pattern NATHEN Centromere Pattern Lyme Screen IgG & IgM Active Medications Generic Name Dose Route Start Last Admin Trade Name Freq PRN Reason Stop Dose Admin Acetaminophen 1,000 mg 05/23/17 05:32 05/26/17 09:06 Ofirmev Injection - IVPB 1,000 mg Q6H PRN Administration PAIN Acetaminophen 650 mg 05/24/17 09:21 05/25/17 09:47 Tylenol - PO 650 mg Q6H PRN Administration FEVER OR PAIN Amlodipine Besylate 10 mg 05/26/17 10:00 05/27/17 09:32 Norvasc - PO 10 mg DAILY LULA Administration Chlorhexidine Gluconate 1 applic 05/23/17 22:00 05/26/17 21:25 Hibiclens For Decolonization - TP 1 applic HS LULA Administration Colchicine 0.6 mg 05/27/17 13:30 05/27/17 12:36 Colcrys - PO Not Given DAILY LULA Nicardipine HCl 25 mg/ 250 mls @ 25 mls/hr 05/26/17 08:15 05/27/17 09:29 Dextrose IVPB Not Given TITR L[facility]A Protocol 2.5 MG/HR Insulin Aspart 1 vial 05/23/17 07:00 05/27/17 11:33 Novolog Vial Sliding Scale - SQ 8 units ACHS LULA Administration Protocol Labetalol HCl 600 mg 05/26/17 14:00 11/28/17 06:10 Normodyne - PO Not Given TID LULA Labetalol HCl 10 mg 05/26/17 08:50 Normodyne Injection - IVPUSH ONCE PRN HYPERTENSION Levetiracetam 500 mg 05/26/17 09:11 05/27/17 09:33 Keppra - PO 05/29/17 23:59 500 mg BID LULA Administration Losartan Potassium 50 mg 05/26/17 13:30 05/27/17 09:33 Cozaar - PO 50 mg DAILY [facility] Administration Mupirocin 1 applic 05/23/17 10:00 05/27/17 09:33 Bactroban Ointment (For Decolonization) - NS 05/28/17 09:59 1 applic BID L[facility]A Administration Prednisone 30 mg 05/27/17 08:00 05/27/17 09:33 Deltasone - PO 30 mg DAILY@0800 [facility] Administration ASSESSMENT/PLAN: #Neuro -Intracranial hemorrhage -pt asymptomatic -neuro on board -neurosurg on board -Sys BP target 140-160 -Labetalol BID -Losartan -Note that pt has renal artery stenosis discovered on US several years ago for which pt has not followed up #Cardio -HTN -As above. labetalol, Losartan #Pulm -No resp problems at this time #GI -No GI issues #Endocrine -no issues #MSK -MSU crystals on Right knee tap consistent with gout -Pt on Steroids. Colchicine #FEN -not on fluid -hyperchloremia, pseudohypocalcemia #PPx -no heparin in setting of bleed #Dispo -transfer to Irvin Medina MD PGY-1 ICU Visit type - Emergency Visit Emergency Visit: No - New Patient This patient is new to me today: No - Critical Care Critical Care patient: No - Discharge Referral Referred to [facility] Med [facility] No
--- NOTE | 2017-05-27 14:34 | PN ---
Physical Exam: SUBJECTIVE: Patient seen and examined at bedside. Patient says he still has some pain in the R knee but it is much improved over what it was previously. denies chest pain, SOB, nausea, vomiting, fevers, chills. Patient has been off the nicardipine drip for a few hours and the blood pressure has been holding steady on current regimen of antihypertensives. OBJECTIVE: Vital Signs Period Temp Pulse Resp BP Sys/Unger Pulse Ox Last 24 Hr 98.3 F-100.0 F 74-98 15-22 107-167/60-97 95-96 GENERAL: The patient is awake, alert, and oriented x3, in no acute distress. HEAD: Normal with no signs of trauma. EYES: PERRL, extraocular movements intact, sclera anicteric, conjunctiva clear. No ptosis. LUNGS: Breath sounds equal, clear to auscultation bilaterally, no wheezes, no crackles, no accessory muscle use. HEART: Regular rate and rhythm, S1, S2, no murmurs, rub or gallops appreciated. ABDOMEN: Soft, nontender, nondistended, normoactive bowel sounds, no guarding, no rebound, no hepatosplenomegaly, no masses. EXTREMITIES: 2+ pulses, warm, well-perfused, b/l knee swelling, more on the R, with tenderness to palpation noted. Patient unable to lift both legs bilaterally without pain. NEUROLOGICAL: Cranial nerves II through XII grossly intact. Normal speech, gait not observed. PSYCH: Normal mood, normal affect. SKIN: Warm, dry, normal turgor, no rashes or lesions noted Laboratory Results - last 24 hr 05/25/17 05/26/17 05/26/17 05:20 05:47 12:37 WBC RBC Hgb Hct MCV MCH MCHC RDW Plt Count MPV Neutrophils % Lymphocytes % Monocytes % Eosinophils % Basophils % Sodium Potassium Chloride Carbon Dioxide Anion Gap BUN Creatinine Creat Clearance w eGFR POC Glucometer 179.21486 224.06282 Random Glucose Calcium Total Bilirubin AST ALT Alkaline Phosphatase Total Protein Albumin NATHEN Screen Positive H NATHEN Homogeneous Pattern 1:80 NATHEN Nucleolar Pattern TNP NATHEN Midbody Pattern TNP NATHEN Speckled Pattern TNP NATHEN Centromere Pattern TNP Lyme Screen IgG & IgM <0.91 05/26/17 05/27/17 05/27/17 17:35 05:00 05:00 WBC 9.7 RBC 3.63 L Hgb 11.1 L D Hct 32.6 L MCV 89.8 MCH 30.5 MCHC 33.9 RDW 13.9 Plt Count 364 MPV 8.6 Neutrophils % 88.4 H D Lymphocytes % 6.1 L D Monocytes % 5.3 Eosinophils % 0.0 D Basophils % 0.2 Sodium 141 Potassium 4.4 Chloride 110 H Carbon Dioxide 22 Anion Gap 9 BUN 29 H Creatinine 1.3 Creat Clearance w eGFR 57.31 POC Glucometer [phone] Random Glucose 321 H* D Calcium 7.6 L Total Bilirubin 0.2 AST 11 L ALT 53 Alkaline Phosphatase 113 D Total Protein 5.6 L Albumin 1.8 L NATHEN Screen NATHEN Homogeneous Pattern NATHEN Nucleolar Pattern NATHEN Midbody Pattern NATHEN Speckled Pattern NATHEN Centromere Pattern Lyme Screen IgG & IgM 05/27/17 05/27/17 06:00 11:28 WBC RBC Hgb Hct MCV MCH MCHC RDW Plt Count MPV Neutrophils % Lymphocytes % Monocytes % Eosinophils % Basophils % Sodium Potassium Chloride Carbon Dioxide Anion Gap BUN Creatinine Creat Clearance w eGFR POC Glucometer [phone] Random Glucose Calcium Total Bilirubin AST ALT Alkaline Phosphatase Total Protein Albumin NATHEN Screen NATHEN Homogeneous Pattern NATHEN Nucleolar Pattern NATHEN Midbody Pattern NATHEN Speckled Pattern NATHEN Centromere Pattern Lyme Screen IgG & IgM Active Medications Generic Name Dose Route Start Last Admin Trade Name Jovon PRN Reason Stop Dose Admin Acetaminophen 1,000 mg 05/23/17 05:32 05/26/17 09:06 Ofirmev Injection - IVPB 1,000 mg Q6H PRN Administration PAIN Acetaminophen 650 mg 05/24/17 09:21 05/25/17 09:47 Tylenol - PO 650 mg Q6H PRN Administration FEVER OR PAIN Amlodipine Besylate 10 mg 05/26/17 10:00 05/27/17 09:32 Norvasc - PO 10 mg DAILY [facility] Administration Chlorhexidine Gluconate 1 applic 05/23/17 22:00 05/26/17 21:25 Hibiclens For Decolonization - TP 1 applic HS [facility] Administration Colchicine 0.6 mg 05/27/17 13:30 05/27/17 12:36 Colcrys - PO Not Given DAILY [facility] Nicardipine HCl 25 mg/ 250 mls @ 25 mls/hr 05/26/17 08:15 05/27/17 09:29 Dextrose IVPB Not Given TITR [facility] Protocol 2.5 MG/HR Insulin Aspart 1 vial 05/23/17 07:00 05/27/17 11:33 Novolog Vial Sliding Scale - SQ 8 units ACHS [facility] Administration Protocol Labetalol HCl 600 mg 05/26/17 14:00 05/27/17 14:15 Normodyne - PO 600 mg TID [facility] Administration Labetalol HCl 10 mg 05/26/17 08:50 Normodyne Injection - IVPUSH ONCE PRN HYPERTENSION Levetiracetam 500 mg 05/26/17 09:11 05/27/17 09:33 Keppra - PO 05/29/17 23:59 500 mg BID [facility] Administration Losartan Potassium 50 mg 05/26/17 13:30 05/27/17 09:33 Cozaar - PO 50 mg DAILY [facility] Administration Mupirocin 1 applic 05/23/17 10:00 05/27/17 09:33 Bactroban Ointment (For Decolonization) - NS 05/28/17 09:59 1 applic BID [facility] Administration Prednisone 30 mg 05/27/17 08:00 05/27/17 09:33 Deltasone - PO 30 mg DAILY@0800 [facility] Administration Imaging: -CT brain: acute/subacute hemorrhage in R basal ganglia posteriorly, 1.4x0.8 hemorrhage in L parietal lobe w/ surrounding edema and questionable hemorrhage in frontal lobe -F/U CT brain reveals stable, unchanged hemorrhage in the R basal ganglia and L parietal lobe ASSESSMENT/PLAN: 56yo Japanese-speaking M with significant history of DM, uncontrolled HTN, previous CVA noted from medical records who presented to the ED for painful feet and admitted to ICU for treatment of intracranial hemorrhage. #Intracranial hemorrhage: likely secondary to uncontrolled hypertension, controlled -possible outpatient MRI -tox screen positive for opiates and MDMA -alc quant negative -appreciate neuro/surg recs -continue on keppra 500 BID #Hypertensive Emergency -patient's blood pressure is controlled today. he is off the nicardipine drip -continue amlodipine 10 QD -continue labetalol 600 TID -continue losartan 50mg QD #Acute Gout: improving -pt s/p arthrocentesis: WBC 76982, RBC 3232, positive for monosodium urate crystals -uric acid normal -ortho consult Dr. Wilson appreciated -lower extremity dopplers negative -stop antibiotics -continue prednisone 30mg PO QD -tylenol for pain -continue to monitor #NOEL -Most likely secondary to prerenal azotemia, resolving -Repeat BMP in AM #DM -BGM ACHS -Insulin sliding scale -A1C 6.3 FEN: -No standing fluids -Replete lytes as necessary -Diabetic, low sodium diet PPX: DVT- SCDs applied to both legs GI- Protonix 40mg Dispo: Can be transferred to the floor full code Visit type - Emergency Visit Emergency Visit: No - New Patient This patient is new to me today: No - Critical Care Critical Care patient: Yes Total Critical Care Time (in minutes): 30 Critical Care Statement: The care of this patient involved high complexity decision making to prevent further life threatening deterioration of the patient 's condition and/or to evaluate & treat vital organ system(s) failure or risk of failure.
--- NOTE | 2017-05-27 18:12 | PN ---
Teaching Attending Note Name of Resident: Ehsan Dover ATTENDING PHYSICIAN STATEMENT I saw and evaluated the patient. I reviewed the resident's note and discussed the case with the resident. I agree with the resident's findings and plan as documented. SUBJECTIVE:c/o R knee pain but improved since yesterday. has not walked on leg due to knee pain. denies CP, SOB, fever, chills, N/V/C/D, OBJECTIVE: Last Vital Signs Temp Pulse Resp BP Pulse Ox 98.3 F 79 17 162/90 95 05/27/17 18:00 05/27/17 18:00 05/27/17 18:00 05/27/17 18:00 05/27/17 09:00 General NAD CV S1 S2 RRR no murmur/rub/gallop Lungs CTA B/L no wheezing/rales/rhonchi Abdomen soft NT/ND Extremities R knee tender and swelling. ROM limited due to pain ASSESSMENT AND PLAN: 56yo M with PMH continuous ETOH dependence, ETOH withdrawal seziures, HTN, DM and gout presented to the ER with B/L feet pain and BISHOP 1. Acute/subacute hemorrhage- R basal ganglia and L parietal lobe iwth surrounding edema. possible due to HTN urgency vs frequent falls from ETOH use. no neurological deficits noted. repeat Head CT stable. will need MRI in several weeks to re-assess. cont keppra for seizure prophylaxis 2. HTN emergency- nicardipine ggt d/c yesterday. improved but remains above goal. slowly reduce systolic BP. 3. R knee gouty flare- s/p arthrocentesis with removal of fluid + for crystals. started on prednisone 30mg and colchicine. will cont to monitor. PT assessment 4. NOEL-due to HTN. now improved. avoid nephrotoxic agents 5. DM- A1c 6.3. was not on medications at home. can re-start metformin on discharge. cont iss 6. +tox- obtained on 05/25. +opiates and ecstasy. adamantly denies using these substances. can be false positive from labetolol and metformin use. 7. DVT ppx- SCD 8. PT assessment 9. pt is stable for transfer to The care of this patient involved high complexity decision making to prevent further life threatening deterioration of the patient's condition and/or to evaluate & treat vital organ system(s) failure or risk of failure. 45 mins
[2017-05-27] MEDS ORDERED: ACETAMINOPHEN 1000 MG/100 ML VIAL (NON FORMULARY) IVPB PRN (18:54)
[2017-05-27] MEDS ORDERED: NICARDIPINE 25 MG in DEXTROSE 5%-WATER - 240 ML IVPB SCH (18:54)
[2017-05-27] MEDS ORDERED: ACETAMINOPHEN 325 MG TABLET (FP) PO PRN (18:54)
[2017-05-27] MEDS ORDERED: LABETALOL HCL 5 MG/1 ML (100MG/20 ML VIAL) IVPUSH PRN (19:02)
[2017-05-27] MEDS: CHLORHEXIDINE GLUCONATE 4% CLEANSER FOR DECOLONIZATION TP SCH (21:29)
[2017-05-27] MEDS ORDERED: MUPIROCIN 2% TOPICAL OINTMENT FOR DECOLONIZATION NS SCH (22:00)
[2017-05-28] MEDS ORDERED: HEMOQUE CONTROL SOLUTION ONE (01:05)
[2017-05-28] MEDS: LABETALOL HCL 200 MG TABLET (FP) PO SCH ×3 (05:26→22:03)
[2017-05-28] MEDS ORDERED: HEMOQUE TEST 1 EACH EACH ONE (05:52)
[2017-05-28] MEDS: INSULIN SLIDING SCALE (NOVOLOG) 1 VIAL SQ SCH ×4 (06:05→22:06)
[2017-05-28 06:21] LABS: BASOPHIL 0.4 % (0-2.0); EOSINOPHIL 0.2 % (0-4.5); MCH 30.5 pg (25.7-33.7); MCHC 33.7 g/dl (32.0-35.9); MEAN CELL VOLUME 90.3 fl (80-96); MEAN PLT VOLUME 8.5 fl (7.5-11.1); NEUTROPHILS 77.3 % (42.8-82.8); PLATELET COUNT 421 K/MM3 (134-434); RDW 13.8 % (11.9-15.9); WHITE BLOOD COUNT 11.4 K/mm3 (4.0-10.0)
[2017-05-28 06:59] LABS: ALBUMIN 1.9 g/dl (3.4-5.0); ANION GAP 11 (8-16); CALCIUM 8.2 mg/dL (8.5-10.1); CO2 22 mmol/L (21-32); GLUCOSE,RANDOM 265 mg/dL (74-106)
[2017-05-28 07:02] LABS: ALK PHOS 102 U/L (45-117); BILIRUBIN,TOTAL 0.2 mg/dL (0.2-1.0); CREATININE 1.3 mg/dL (0.7-1.3); SGOT/AST 15 U/L (15-37); SGPT/ALT 57 U/L (12-78); TOT PROT 5.6 g/dl (6.4-8.2)
--- NOTE | 2017-05-28 09:02 | PN ---
Progress Note (short form) - Note Progress Note: NEUROSURGERY No H/A No new complaints R knee pain better PE: AF; 166/97 HEENT- NC/AT; neck- supple; Cor-RR; Lungs- CTA B; Abd- benign; Ext- B tender anterior knees, less A/A/Ox3 CN- non-focal; Motor- at least 4+/5 without drift; Sensation- intact LT; DTR- 1+ Blood culture - negative Head CT- L parietal 1.5 x 2 cm subcortical ICH with edema; small R posterior putamen/IC hyperdensity F/U Head CT- stable R posterior putamen and L parietal ICH CTA head - no clear aneurysm or AVM/aneurysm Probable hypertensive ICH SBP target range 140-170 with slow reduction Being titrated on cardene No neurosurgical intervention indicated Management management of HTN, DM and mild renal insufficiency and f/u with neurology Will sign off
[2017-05-28] MEDS ORDERED: PT OWN MED DRAWER 7, Y5N ONE (09:26)
[2017-05-28] MEDS: amLODIPine BESYLATE 10 MG TABLET (FP) PO SCH (09:42)
[2017-05-28] MEDS ORDERED: COLCHICINE 0.6 MG TABLET (FP) PO SCH (10:00)
[2017-05-28] MEDS ORDERED: LOSARTAN POTASSIUM 50 MG TABLET (FP) PO SCH (10:00)
[2017-05-28] MEDS ORDERED: LABETALOL HCL 5 MG/1 ML (100MG/20 ML VIAL) IVPUSH ONE (10:28)
[2017-05-28] MEDS: predniSONE 10 MG TABLET (UD) PO SCH (10:29)
[2017-05-28] MEDS: levETIRAcetam 500 MG TABLET (FP) PO SCH ×2 (10:31→22:03)
--- NOTE | 2017-05-28 11:57 | PN ---
Teaching Attending Note Name of Resident: Irvin Medina ATTENDING PHYSICIAN STATEMENT I saw and evaluated the patient. I reviewed the resident's note and discussed the case with the resident. I agree with the resident's findings and plan as documented. SUBJECTIVE: Pt seen and examined in the ICU. Cardene gtt titrated off, blood pressures high this AM. Denies headache, nausea. No shortness of breath or chest pain. OBJECTIVE: Last Vital Signs Temp Pulse Resp BP Pulse Ox 98.8 F 76 16 178/89 97 05/28/17 10:00 05/28/17 10:00 05/28/17 10:00 05/28/17 10:00 05/28/17 09:00 Intake & Output 05/25/17 05/26/17 05/27/17 05/28/17 23:59 23:59 23:59 23:59 Intake Total 4609 3545 2400 240 Output Total 2100 2600 2400 600 Balance 2509 945 0 -360 Weight 195 lb 4 oz 193 lb 14.4 oz 191 lb 3.2 oz 191 lb 3.2 oz Gen: NAD at rest Heart: RRR Lung: decreased breath sounds at the bases Abd: soft, nontender Ext: trace edema CBC, BMP 05/28/17 06:00 05/28/17 06:00 Active Medications Acetaminophen (Tylenol -) 650 mg PO Q6H PRN PRN Reason: FEVER OR PAIN Acetaminophen (Ofirmev Injection -) 1,000 mg IVPB Q6H PRN PRN Reason: PAIN Amlodipine Besylate (Norvasc -) 10 mg PO DAILY [facility] Last Admin: 05/28/17 09:42 Dose: 10 mg Chlorhexidine Gluconate (Hibiclens For Decolonization -) 1 applic TP HS [facility] Last Admin: 05/27/17 21:29 Dose: 1 applic Colchicine (Colcrys -) 0.6 mg PO DAILY [facility] Last Admin: 05/28/17 09:41 Dose: 0.6 mg Insulin Aspart (Novolog Vial Sliding Scale -) 1 vial SQ ACHS [facility] PRN Reason: Protocol Last Admin: 05/28/17 06:05 Dose: 6 units Labetalol HCl (Normodyne Injection -) 10 mg IVPUSH ONCE PRN PRN Reason: HYPERTENSION Labetalol HCl (Normodyne -) 800 mg PO TID [facility] Levetiracetam (Keppra -) 500 mg PO BID [facility] Stop: 05/29/17 23:59 Last Admin: 05/28/17 10:31 Dose: 500 mg Losartan Potassium (Cozaar -) 100 mg PO DAILY [facility] Prednisone (Deltasone -) 30 mg PO DAILY@0800 [facility] Last Admin: 05/28/17 10:29 Dose: 30 mg ASSESSMENT AND PLAN: Acute Intracranial Hemorrhage Hypertensive Urgency DM Gout - titrate PO meds for BP control - labetalol IVP PRN - keep SBP <160 - continue prednisone, colchicine - pain control - DVT prophylaxis - can monitor on telemetry if can get BP under control critical care time spent in reviewing chart, evaluating patent and formulating plan 35 min
[2017-05-28] MEDS ORDERED: LOSARTAN POTASSIUM 50 MG TABLET (FP) PO ONE (13:00)
--- NOTE | 2017-05-28 13:38 | PN ---
Physical Exam: SUBJECTIVE: Patient seen and examined at bedside. States that the pain and swelling in his knees have improved. Denies chest pain, SOB, headache, nausea, vomiting, diarrhea. OBJECTIVE: Vital Signs Period Temp Pulse Resp BP Sys/Unger Pulse Ox Last 24 Hr 98.2 F-98.8 F 70-88 15-18 142-178/79-104 95-97 GENERAL: The patient is awake, alert, and oriented x3, in no acute distress. HEAD: Normal with no signs of trauma. EYES: PERRL, extraocular movements intact, sclera anicteric, conjunctiva clear. No ptosis. LUNGS: Breath sounds equal, clear to auscultation bilaterally, no wheezes, no crackles, no accessory muscle use. HEART: Regular rate and rhythm, S1, S2, no murmurs, rub or gallops appreciated. ABDOMEN: Soft, nontender, nondistended, normoactive bowel sounds, no guarding, no rebound, no hepatosplenomegaly, no masses. EXTREMITIES: 2+ pulses, warm, well-perfused, Slgiht R knee swelling withput tenderness to palpation noted. Patient is better able to lift both extremities today. NEUROLOGICAL: Cranial nerves II through XII grossly intact. Normal speech, gait not observed. PSYCH: Normal mood, normal affect. SKIN: Warm, dry, normal turgor, no rashes or lesions noted Laboratory Results - last 24 hr 05/27/17 05/27/17 05/28/17 17:56 21:26 05:58 WBC RBC Hgb Hct MCV MCH MCHC RDW Plt Count MPV Neutrophils % Lymphocytes % Monocytes % Eosinophils % Basophils % Sodium Potassium Chloride Carbon Dioxide Anion Gap BUN Creatinine Creat Clearance w eGFR POC Glucometer 302.29402 354.16897 274.70541 Random Glucose Calcium Total Bilirubin AST ALT Alkaline Phosphatase Total Protein Albumin 05/28/17 05/28/17 05/28/17 06:00 06:00 12:59 WBC 11.4 H RBC 3.44 L Hgb 10.5 L Hct 31.1 L MCV 90.3 MCH 30.5 MCHC 33.7 RDW 13.8 Plt Count 421 MPV 8.5 Neutrophils % 77.3 Lymphocytes % 13.9 D Monocytes % 8.2 Eosinophils % 0.2 D Basophils % 0.4 Sodium 143 Potassium 4.0 Chloride 110 H Carbon Dioxide 22 Anion Gap 11 BUN 32 H Creatinine 1.3 Creat Clearance w eGFR 57.31 POC Glucometer [phone] Random Glucose 265 H Calcium 8.2 L Total Bilirubin 0.2 AST 15 D ALT 57 Alkaline Phosphatase 102 Total Protein 5.6 L Albumin 1.9 L Active Medications Generic Name Dose Route Start Last Admin Trade Name Freq PRN Reason Stop Dose Admin Acetaminophen 650 mg 05/27/17 18:54 Tylenol - PO Q6H PRN FEVER OR PAIN Acetaminophen 1,000 mg 05/27/17 18:54 Ofirmev Injection - IVPB Q6H PRN PAIN Amlodipine Besylate 10 mg 05/28/17 10:00 05/28/17 09:42 Norvasc - PO 10 mg DAILY [facility] Administration Chlorhexidine Gluconate 1 applic 05/27/17 22:00 05/27/17 21:29 Hibiclens For Decolonization - TP 1 applic HS [facility] Administration Colchicine 0.6 mg 05/28/17 10:00 05/28/17 09:41 Colcrys - PO 0.6 mg DAILY [facility] Administration Insulin Aspart 1 vial 05/27/17 22:00 05/28/17 13:04 Novolog Vial Sliding Scale - SQ 4 units ACHS [facility] Administration Protocol Labetalol HCl 10 mg 05/27/17 19:02 Normodyne Injection - IVPUSH ONCE PRN HYPERTENSION Labetalol HCl 800 mg 05/28/17 14:00 05/28/17 13:06 Normodyne - PO 800 mg TID [facility] Administration Levetiracetam 500 mg 05/27/17 22:00 05/28/17 10:31 Keppra - PO 05/29/17 23:59 500 mg BID [facility] Administration Losartan Potassium 100 mg 05/29/17 10:00 Cozaar - PO DAILY [facility] Prednisone 30 mg 05/28/17 08:00 05/28/17 10:29 Deltasone - PO 30 mg DAILY@0800 [facility] Administration ASSESSMENT/PLAN: 56yo Cymro-speaking M with significant history of DM, uncontrolled HTN, previous CVA noted from medical records who presented to the ED for painful feet and admitted to ICU for treatment of intracranial hemorrhage. #Hypertensive Emergency -patient's blood pressure is controlled today. he is off the nicardipine drip -continue amlodipine 10 QD -continue labetalol 600 TID -increase losartan to 100mg QD -start hydralazine 10mg QD with parameters -In 2013, had US ultrasound that showed no renal artery stenosis -repeat US kidney to r/o renal artery stenosis and adrenal mass -get urine metanephrines to r/o pheochromocytoma #Acute Gout: improving -pt s/p arthrocentesis: WBC 17209, RBC 3232, positive for monosodium urate crystals -uric acid normal -lower extremity dopplers negative -continue prednisone 30mg PO QD -tylenol for pain -PT to come walk #Intracranial hemorrhage: likely secondary to uncontrolled hypertension, controlled -possible outpatient MRI -tox screen positive for opiates and MDMA -alc quant negative -appreciate neuro/surg recs -continue on keppra 500 BID #NOEL -Most likely secondary to prerenal azotemia, resolving -Repeat BMP in AM #DM -BGM ACHS -Insulin sliding scale -A1C 6.3 FEN: -No standing fluids -Replete lytes as necessary -Diabetic, low sodium diet PPX: DVT- SCDs applied to both legs GI- Protonix 40mg Dispo: Can be transferred to the floor Potential DC given BP remains stable full code Visit type - Emergency Visit Emergency Visit: No - New Patient This patient is new to me today: No - Critical Care Critical Care patient: Yes Total Critical Care Time (in minutes): 30 Critical Care Statement: The care of this patient involved high complexity decision making to prevent further life threatening deterioration of the patient 's condition and/or to evaluate & treat vital organ system(s) failure or risk of failure.
--- NOTE | 2017-05-28 13:46 | PN ---
Physical Exam: SUBJECTIVE: Patient seen and examined at bedside. Pt continues to be hypertensive. Denies headache, fever, chills. Only complaint is knee pain, which is greatly subdued from prior. Afebrile and stable. OBJECTIVE: Vital Signs Period Temp Pulse Resp BP Sys/Unger Pulse Ox Last 24 Hr 98.2 F-98.8 F 70-88 15-18 142-178/79-104 95-97 GENERAL: The patient is awake, alert, and fully oriented, in no acute distress. HEAD: Normal with no signs of trauma. EYES: sclera anicteric, conjunctiva clear. No ptosis. ENT: oropharynx clear without exudates, moist mucous membranes. NECK: Trachea midline, full range of motion, supple. LUNGS: Breath sounds equal, clear to auscultation bilaterally, no wheezes, no crackles, no accessory muscle use. HEART: Regular rate and rhythm, S1, S2 without murmur, rub or gallop. ABDOMEN: Soft, nontender, nondistended, normoactive bowel sounds, no guarding, no rebound, no hepatosplenomegaly, no masses. EXTREMITIES: 2+ pulses, warm, well-perfused, no edema. Knees tender on passive and active ROM. NEUROLOGICAL: Cranial nerves II through XII grossly intact. Normal speech, gait not observed. PSYCH: Normal mood, normal affect. SKIN: Warm, dry, normal turgor, no rashes or lesions noted Laboratory Results - last 24 hr 05/27/17 05/27/17 05/28/17 17:56 21:26 05:58 WBC RBC Hgb Hct MCV MCH MCHC RDW Plt Count MPV Neutrophils % Lymphocytes % Monocytes % Eosinophils % Basophils % Sodium Potassium Chloride Carbon Dioxide Anion Gap BUN Creatinine Creat Clearance w eGFR POC Glucometer 302.17782 354.96874 274.92934 Random Glucose Calcium Total Bilirubin AST ALT Alkaline Phosphatase Total Protein Albumin 05/28/17 05/28/17 05/28/17 06:00 06:00 12:59 WBC 11.4 H RBC 3.44 L Hgb 10.5 L Hct 31.1 L MCV 90.3 MCH 30.5 MCHC 33.7 RDW 13.8 Plt Count 421 MPV 8.5 Neutrophils % 77.3 Lymphocytes % 13.9 D Monocytes % 8.2 Eosinophils % 0.2 D Basophils % 0.4 Sodium 143 Potassium 4.0 Chloride 110 H Carbon Dioxide 22 Anion Gap 11 BUN 32 H Creatinine 1.3 Creat Clearance w eGFR 57.31 POC Glucometer 249.68347 Random Glucose 265 H Calcium 8.2 L Total Bilirubin 0.2 AST 15 D ALT 57 Alkaline Phosphatase 102 Total Protein 5.6 L Albumin 1.9 L Active Medications Generic Name Dose Route Start Last Admin Trade Name Freq PRN Reason Stop Dose Admin Acetaminophen 650 mg 05/27/17 18:54 Tylenol - PO Q6H PRN FEVER OR PAIN Acetaminophen 1,000 mg 05/27/17 18:54 Ofirmev Injection - IVPB Q6H PRN PAIN Amlodipine Besylate 10 mg 05/28/17 10:00 05/28/17 09:42 Norvasc - PO 10 mg DAILY [facility] Administration Chlorhexidine Gluconate 1 applic 05/27/17 22:00 05/27/17 21:29 Hibiclens For Decolonization - TP 1 applic HS [facility] Administration Colchicine 0.6 mg 05/28/17 10:00 05/28/17 09:41 Colcrys - PO 0.6 mg DAILY [facility] Administration Insulin Aspart 1 vial 05/27/17 22:00 05/28/17 13:04 Novolog Vial Sliding Scale - SQ 4 units ACHS [facility] Administration Protocol Labetalol HCl 10 mg 05/27/17 19:02 Normodyne Injection - IVPUSH ONCE PRN HYPERTENSION Labetalol HCl 800 mg 05/28/17 14:00 05/28/17 13:06 Normodyne - PO 800 mg TID [facility] Administration Levetiracetam 500 mg 05/27/17 22:00 05/28/17 10:31 Keppra - PO 05/29/17 23:59 500 mg BID [facility] Administration Losartan Potassium 100 mg 05/29/17 10:00 Cozaar - PO DAILY [facility] Prednisone 30 mg 05/28/17 08:00 05/28/17 10:29 Deltasone - PO 30 mg DAILY@0800 [facility] Administration ASSESSMENT/PLAN: Pt is a 56M w/ PMH EtOH abuse, DM, HTN, CVA, Infective endocarditis who presented to ED with b/l knee pain. Pt was found to have gout of the knees and 2 asymptomatic intracranial bleeds. He is admitted to ICU for management of his resistant htn and intracranial bleed. #Neuro -Intracranial hemorrhage -pt asymptomatic -neuro on board -neurosurg on board -Sys BP target 140-160 -Amlodipine 10 -increased Labetalol to 800 BID -increased Losartan to 100 -R/o Renal stenosis. Renal U/S. -required IV push of labetalol this morning #Cardio -HTN -As above. labetalol, Losartan, Amlodipine #Pulm -No resp problems at this time #GI -No GI issues #Endocrine -r/o Pheochromocytoma -Renal U/S & plasma and urine metanephrines #MSK -MSU crystals on Right knee tap consistent with gout -Pt on Steroids. Colchicine -pain is currently controlled #FEN -not on fluid -hyperchloremia, pseudohypocalcemia -DM / Na diet #PPx -no heparin in setting of bleed #Dispo -transfer to Irvin Medina MD PGY-1 ICU Visit type - Emergency Visit Emergency Visit: No - New Patient This patient is new to me today: No - Critical Care Critical Care patient: Yes Total Critical Care Time (in minutes): 37 Critical Care Statement: The care of this patient involved high complexity decision making to prevent further life threatening deterioration of the patient 's condition and/or to evaluate & treat vital organ system(s) failure or risk of failure. - Discharge Referral Referred to [facility] No
--- NOTE | 2017-05-28 14:35 | PN ---
Teaching Attending Note Name of Resident: Ehsan Dover ATTENDING PHYSICIAN STATEMENT I saw and evaluated the patient. I reviewed the resident's note and discussed the case with the resident. I agree with the resident's findings and plan as documented. SUBJECTIVE:knee pain mostly resolved. denies Cp, SOB, fever, chills, BISHOP, N/V/C/D OBJECTIVE: Last Vital Signs Temp Pulse Resp BP Pulse Ox 98.8 F 71 18 175/104 97 05/28/17 10:00 05/28/17 12:00 05/28/17 12:00 05/28/17 12:00 05/28/17 09:00 General NAD CV S1 S2 RRR no murmur/rub/gallop Lungs CTA B/L no wheezing/rales/rhonchi Abdomen soft NT/ND Extremities R knee minimal swelling. ROM limited due to pain ASSESSMENT AND PLAN: 56yo M with PMH continuous ETOH dependence, ETOH withdrawal seziures, HTN, DM and gout presented to the ER with B/L feet pain and BISHOP 1. Acute/subacute hemorrhage- R basal ganglia and L parietal lobe with surrounding edema. possible due to HTN urgency vs frequent falls from ETOH use. no neurological deficits noted. repeat Head CT stable. will need MRI in several weeks to re-assess. cont keppra for seizure prophylaxis 2. HTN emergency- off ggt. BP is improved however above goal. will increase losartain to 100mg. cont labetolol and norvasc. check renal doppler to evaluate for RICKIE. 3. R knee gouty flare- s/p arthrocentesis with removal of fluid + for crystals. improved. on prednisone 30mg and colchicine. will cont to monitor. PT assessment 4. NOEL-due to HTN. now improved. avoid nephrotoxic agents 5. DM- A1c 6.3. was not on medications at home. can re-start metformin on discharge. cont iss 6. +tox- obtained on 05/25. +opiates and ecstasy. adamantly denies using these substances. can be false positive from labetolol and metformin use. 7. DVT ppx- SCD 8. PT assessment 9. pt is stable for transfer to . discharge planing if BP improved can likely d/c tomorrow. The care of this patient involved high complexity decision making to prevent further life threatening deterioration of the patient's condition and/or to evaluate & treat vital organ system(s) failure or risk of failure. 38 mins
[2017-05-28] MEDS ORDERED: hydrALAZINE HCL 10 MG TABLET PO SCH (17:15)
[2017-05-28] MEDS: CHLORHEXIDINE GLUCONATE 4% CLEANSER FOR DECOLONIZATION TP SCH (22:07)
[2017-05-29] MEDS: LABETALOL HCL 200 MG TABLET (FP) PO SCH ×3 (06:28→21:20)
[2017-05-29] MEDS: INSULIN SLIDING SCALE (NOVOLOG) 1 VIAL SQ SCH ×4 (06:29→21:26)
[2017-05-29 06:31] LABS: BASOPHIL 0.4 % (0-2.0); EOSINOPHIL 0.5 % (0-4.5); MCH 30.9 pg (25.7-33.7); MEAN CELL VOLUME 90.9 fl (80-96); MEAN PLT VOLUME 8.6 fl (7.5-11.1); NEUTROPHILS 68.6 % (42.8-82.8); PLATELET COUNT 464 K/MM3 (134-434); RDW 13.7 % (11.9-15.9); WHITE BLOOD COUNT 11.2 K/mm3 (4.0-10.0)
[2017-05-29 06:55] LABS: ANION GAP 7 (8-16); CALCIUM 7.6 mg/dL (8.5-10.1); CO2 25 mmol/L (21-32); CREATININE 1.1 mg/dL (0.7-1.3); GLUCOSE,RANDOM 186 mg/dL (74-106)
--- NOTE | 2017-05-29 09:15 | PN ---
Progress Note (short form) - Note Progress Note: Presented to the ER with bilateral knee pain and was found to be hypertensive. He also reportedly at that time acknowledged having a headache. He had CT scan which revealed small left parietal hematoma. F/U imaging (CTA head and neck) revealed no aneurysms or AVM). being treated for inflammatory arthritis FU mild BISHOP no new c/o Vital Signs Temperature 98.2 F 05/29/17 06:00 Pulse Rate 74 05/29/17 08:00 Respiratory Rate 18 05/29/17 08:00 Blood Pressure 172/94 05/29/17 08:00 O2 Sat by Pulse Oximetry (%) 98 05/29/17 08:50 CBCD WBC 11.2 K/mm3 (4.0-10.0) H 05/29/17 05:00 RBC 3.28 M/mm3 (4.00-5.60) L 05/29/17 05:00 Hgb 10.1 GM/dL (11.7-16.9) L 05/29/17 05:00 Hct 29.8 % (35.4-49) L 05/29/17 05:00 MCV 90.9 fl (80-96) 05/29/17 05:00 MCHC 34.0 g/dl (32.0-35.9) 05/29/17 05:00 RDW 13.7 % (11.9-15.9) 05/29/17 05:00 Plt Count 464 K/MM3 (134-434) H 05/29/17 05:00 MPV 8.6 fl (7.5-11.1) 05/29/17 05:00 CMP Sodium 144 mmol/L (136-145) 05/29/17 05:00 Potassium 4.1 mmol/L (3.5-5.1) 05/29/17 05:00 Chloride 112 mmol/L (98-107) H 05/29/17 05:00 Carbon Dioxide 25 mmol/L (21-32) 05/29/17 05:00 Anion Gap 7 (8-16) L 05/29/17 05:00 BUN 27 mg/dL (7-18) H 05/29/17 05:00 Creatinine 1.1 mg/dL (0.7-1.3) 05/29/17 05:00 Creat Clearance w eGFR 57.31 (>60) 05/28/17 06:00 Calcium 7.6 mg/dL (8.5-10.1) L 05/29/17 05:00 Total Bilirubin 0.2 mg/dL (0.2-1.0) 05/28/17 06:00 AST 15 U/L (15-37) D 05/28/17 06:00 ALT 57 U/L (12-78) 05/28/17 06:00 Alkaline Phosphatase 102 U/L (45-117) 05/28/17 06:00 Total Protein 5.6 g/dl (6.4-8.2) L 05/28/17 06:00 Albumin 1.9 g/dl (3.4-5.0) L 05/28/17 06:00 CT HD 05/24/17 TECHNIQUE: Sequential axial images were obtained from the base of the skull to the vertex. Since prior study of 05/23/2017, there has been no significant change. Again noted is a small focus of hemorrhage within the right basal ganglia and a larger area of hemorrhage within the left parietal lobe. No new areas of acute intracranial hemorrhage have developed. IMPRESSION: No significant change in 2 areas of acute intracranial hemorrhage since 2016. awake and alert/EOMI, no facial, no focal weakness, joints tender , plantars down AP : s/p hypertensive hemorrhage -- BP better but needs continued optimization; no AP x 2 weeks, then can reassess as outpt; cont statin. can DC keppra rehab when stable Dr Aguilar
[2017-05-29] MEDS ORDERED: PT OWN MED DRAWER 7, Y5N ONE (09:38)
[2017-05-29] MEDS: predniSONE 10 MG TABLET (UD) PO SCH (09:45)
[2017-05-29] MEDS: LOSARTAN POTASSIUM 50 MG TABLET (FP) PO SCH (09:45)
[2017-05-29] MEDS: hydrALAZINE HCL 10 MG TABLET PO SCH ×2 (09:45→21:19)
[2017-05-29] MEDS: levETIRAcetam 500 MG TABLET (FP) PO SCH ×2 (09:46→21:20)
[2017-05-29] MEDS: amLODIPine BESYLATE 10 MG TABLET (FP) PO SCH (09:47)
[2017-05-29] MEDS ORDERED: hydrALAZINE HCL 10 MG TABLET PO SCH (10:00)
[2017-05-29] MEDS ORDERED: predniSONE 10 MG TABLET (UD) PO SCH (11:53)
--- NOTE | 2017-05-29 12:00 | PN ---
Teaching Attending Note Name of Resident: Irvin Medina ATTENDING PHYSICIAN STATEMENT I saw and evaluated the patient. I reviewed the resident's note and discussed the case with the resident. I agree with the resident's findings and plan as documented. SUBJECTIVE: Patient seen and examined in the ICU. Awake and alert. Knee pain is better. No CP or SOB. Overall BP is improved. Intake & Output 05/26/17 05/27/17 05/28/17 05/29/17 23:59 23:59 23:59 23:59 Intake Total 3545 2400 1440 Output Total 2600 2400 2890 500 Balance 945 0 -1450 -500 Weight 193 lb 14.4 oz 191 lb 3.2 oz 191 lb 3.2 oz 191 lb 1.6 oz Last Vital Signs Temp Pulse Resp BP Pulse Ox 98.5 F 69 15 142/81 98 05/29/17 10:00 05/29/17 10:00 05/29/17 10:00 05/29/17 10:00 05/29/17 08:50 Active Medications Acetaminophen (Tylenol -) 650 mg PO Q6H PRN PRN Reason: FEVER OR PAIN Acetaminophen (Ofirmev Injection -) 1,000 mg IVPB Q6H PRN PRN Reason: PAIN Amlodipine Besylate (Norvasc -) 10 mg PO DAILY [facility] Last Admin: 05/29/17 09:47 Dose: 10 mg Chlorhexidine Gluconate (Hibiclens For Decolonization -) 1 applic TP HS [facility] Last Admin: 05/28/17 22:07 Dose: 1 applic Hydralazine HCl (Apresoline -) 10 mg PO BID [facility] Last Admin: 05/29/17 09:45 Dose: 10 mg Insulin Aspart (Novolog Vial Sliding Scale -) 1 vial SQ ACHS [facility] PRN Reason: Protocol Last Admin: 05/29/17 06:29 Dose: 2 units Labetalol HCl (Normodyne Injection -) 10 mg IVPUSH ONCE PRN PRN Reason: HYPERTENSION Labetalol HCl (Normodyne -) 800 mg PO TID [facility] Last Admin: 05/29/17 06:28 Dose: 800 mg Levetiracetam (Keppra -) 500 mg PO BID [facility] Stop: 05/29/17 23:59 Last Admin: 05/29/17 09:46 Dose: 500 mg Losartan Potassium (Cozaar -) 100 mg PO DAILY [facility] Last Admin: 05/29/17 09:45 Dose: 100 mg Prednisone (Deltasone -) 20 mg PO DAILY@0800 [facility] GENERAL: The patient is awake, alert, and fully oriented, in no acute distress. HEAD: Normal with no signs of trauma. EYES: sclera anicteric, conjunctiva clear. No ptosis. ENT: oropharynx clear without exudates, moist mucous membranes. NECK: Trachea midline, full range of motion, supple. LUNGS: clear to auscultation bilaterally, no wheezes, no crackles HEART: Regular rate and rhythm, S1, S2 without murmur, rub or gallop. ABDOMEN: Soft, nontender, nondistended, normoactive bowel sounds, no guarding, no rebound, no hepatosplenomegaly, no masses. EXTREMITIES: 2+ pulses, warm, Knees tender on passive and active ROM. NEUROLOGICAL: Non-focal PSYCH: Normal mood, normal affect. SKIN: Warm, dry, normal turgor, no rashes or lesions noted Laboratory Results - last 24 hr 05/28/17 05/28/17 05/28/17 12:59 16:52 21:22 WBC RBC Hgb Hct MCV MCH MCHC RDW Plt Count MPV Neutrophils % Lymphocytes % Monocytes % Eosinophils % Basophils % Sodium Potassium Chloride Carbon Dioxide Anion Gap BUN Creatinine POC Glucometer 249.79720 251.54435 299.41314 Random Glucose Calcium 05/29/17 05/29/17 05:00 05:00 WBC 11.2 H RBC 3.28 L Hgb 10.1 L Hct 29.8 L MCV 90.9 MCH 30.9 MCHC 34.0 RDW 13.7 Plt Count 464 H MPV 8.6 Neutrophils % 68.6 Lymphocytes % 21.1 D Monocytes % 9.4 Eosinophils % 0.5 D Basophils % 0.4 Sodium 144 Potassium 4.1 Chloride 112 H Carbon Dioxide 25 Anion Gap 7 L BUN 27 H Creatinine 1.1 POC Glucometer Random Glucose 186 H D Calcium 7.6 L ASSESSMENT/PLAN: ICH due to uncontrolled HTN (?) Pheo ETOH abuse DM HTN CVA Titrate BP meds SBP 140 to 160 O2 as needed Wean Prednsione OOB to chair abetalol to 800 BID Renal US Colchicine Mechanical VTE prophylaxis 4W/4S monitoring Dr Bettencourt Critical care time spent in reviewing chart, evaluating patient and formulating plan - 36 minutes.
[2017-05-29] MEDS ORDERED: INSULIN (NOVOLOG) ASPART 100 UNITS/ML 10ML VIAL ONE (12:02)
--- NOTE | 2017-05-29 12:20 | PN ---
Physical Exam: SUBJECTIVE: Patient seen and examined at bedside. No acute events overnight. Pt still has pain in the knees, but it is controlled. No other complaints. Afebrile , stable, NAD OBJECTIVE: Vital Signs Period Temp Pulse Resp BP Sys/Unger Pulse Ox Last 24 Hr 98 F-99.0 F 63-107 11-18 128-172/77-94 96-98 GENERAL: The patient is awake, alert, and fully oriented, in no acute distress. HEAD: Normal with no signs of trauma. EYES: sclera anicteric, conjunctiva clear. No ptosis. ENT: oropharynx clear without exudates, moist mucous membranes. NECK: Trachea midline, full range of motion, supple. LUNGS: Breath sounds equal, clear to auscultation bilaterally, no wheezes, no crackles, no accessory muscle use. HEART: Regular rate and rhythm, S1, S2 without murmur, rub or gallop. ABDOMEN: Soft, nontender, nondistended, normoactive bowel sounds, no guarding, no rebound, no hepatosplenomegaly, no masses. EXTREMITIES: 2+ pulses, warm, well-perfused, no edema. Knees tender on passive and active ROM. NEUROLOGICAL: Normal speech, gait not observed. PSYCH: Normal mood, normal affect. SKIN: Warm, dry, normal turgor, no rashes or lesions noted Laboratory Results - last 24 hr 05/28/17 05/28/17 05/28/17 12:59 16:52 21:22 WBC RBC Hgb Hct MCV MCH MCHC RDW Plt Count MPV Neutrophils % Lymphocytes % Monocytes % Eosinophils % Basophils % Sodium Potassium Chloride Carbon Dioxide Anion Gap BUN Creatinine POC Glucometer 249.70566 251.67657 299.82477 Random Glucose Calcium 05/29/17 05/29/17 05:00 05:00 WBC 11.2 H RBC 3.28 L Hgb 10.1 L Hct 29.8 L MCV 90.9 MCH 30.9 MCHC 34.0 RDW 13.7 Plt Count 464 H MPV 8.6 Neutrophils % 68.6 Lymphocytes % 21.1 D Monocytes % 9.4 Eosinophils % 0.5 D Basophils % 0.4 Sodium 144 Potassium 4.1 Chloride 112 H Carbon Dioxide 25 Anion Gap 7 L BUN 27 H Creatinine 1.1 POC Glucometer Random Glucose 186 H D Calcium 7.6 L Active Medications Generic Name Dose Route Start Last Admin Trade Name Freq PRN Reason Stop Dose Admin Acetaminophen 650 mg 05/27/17 18:54 Tylenol - PO Q6H PRN FEVER OR PAIN Acetaminophen 1,000 mg 05/27/17 18:54 Ofirmev Injection - IVPB Q6H PRN PAIN Amlodipine Besylate 10 mg 05/28/17 10:00 05/29/17 09:47 Norvasc - PO 10 mg DAILY [facility] Administration Chlorhexidine Gluconate 1 applic 05/27/17 22:00 05/28/17 22:07 Hibiclens For Decolonization - TP 1 applic HS [facility] Administration Hydralazine HCl 10 mg 05/29/17 10:00 05/29/17 09:45 Apresoline - PO 10 mg BID [facility] Administration Insulin Aspart 1 vial 05/27/17 22:00 05/29/17 12:12 Novolog Vial Sliding Scale - SQ 6 units ACHS [facility] Administration Protocol Labetalol HCl 10 mg 05/27/17 19:02 Normodyne Injection - IVPUSH ONCE PRN HYPERTENSION Labetalol HCl 800 mg 05/28/17 14:00 05/29/17 06:28 Normodyne - PO 800 mg TID [facility] Administration Levetiracetam 500 mg 05/27/17 22:00 05/29/17 09:46 Keppra - PO 05/29/17 23:59 500 mg BID [facility] Administration Losartan Potassium 100 mg 05/29/17 10:00 05/29/17 09:45 Cozaar - PO 100 mg DAILY [facility] Administration Prednisone 20 mg 05/29/17 11:53 Deltasone - PO DAILY@0800 [facility] ASSESSMENT/PLAN: Pt is a 56M w/ PMH EtOH abuse, DM, HTN, CVA, Infective endocarditis who presented to ED with b/l knee pain. Pt was found to have gout of the knees and 2 asymptomatic intracranial bleeds. He is admitted to ICU for management of his resistant htn and intracranial bleed. Neuro #Intracranial hemorrhage -pt asymptomatic -neuro on board -neurosurg on board -Sys BP target 140-160 -Amlodipine 10 -Labetalol to 800 BID -Losartan to 100 -R/o Renal stenosis. Renal U/S pending Cardio #HTN -As above. labetalol, Losartan, Amlodipine Endocrine #r/o Pheochromocytoma -Renal U/S & plasma and urine metanephrines MSK #Gout -MSU crystals on Right knee tap consistent with gout -Pt on Steroids. Colchicine -pain is currently controlled #FEN -not on fluid -hyperchloremia, pseudohypocalcemia -DM / Na diet #PPx -no heparin in setting of bleed #Dispo -transfer to Irvin Medina MD PGY-1 ICU Visit type - Emergency Visit Emergency Visit: No - New Patient This patient is new to me today: No - Critical Care Critical Care patient: No - Discharge Referral Referred to [facility] Med [facility] No
--- NOTE | 2017-05-29 17:45 | PN ---
Teaching Attending Note Name of Resident: Ehsan Dover ATTENDING PHYSICIAN STATEMENT I saw and evaluated the patient. I reviewed the resident's note and discussed the case with the resident. I agree with the resident's findings and plan as documented. SUBJECTIVE:knee pain has resolved. denies CP, SOB, fever, chills, BISHOP, blurred vision, N/V/C/D OBJECTIVE: Last Vital Signs Temp Pulse Resp BP Pulse Ox 98.6 F 78 15 149/87 98 05/29/17 14:00 05/29/17 14:00 05/29/17 14:00 05/29/17 14:00 05/29/17 08:50 General NAD CV S1 S2 RRR no murmur/rub/gallop Lungs CTA B/L no wheezing/rales/rhonchi Abdomen soft NT/ND Extremities R knee no swelling noted. good ROM ASSESSMENT AND PLAN: 56yo M with PMH continuous ETOH dependence, ETOH withdrawal seziures, HTN, DM and gout presented to the ER with B/L feet pain and BISHOP 1. Acute/subacute hemorrhage- R basal ganglia and L parietal lobe with surrounding edema. possible due to HTN urgency vs frequent falls from ETOH use. no neurological deficits noted. repeat Head CT stable. will need MRI in several weeks to re-assess. cont to hold asa in setting of intracranial hemorrhage. start high intensity statin. spoke with neurology. can d/c tatyana at this time. 2. HTN emergency- off ggt. BP is improved. hydralazine added this AM with good effect. will need close outpatient BP monitoring 3. R knee gouty flare- s/p arthrocentesis with removal of fluid + for crystals. improved. on prednisone 30mg. d/c colchicine. cont prednisone to complete 5 days. 4. NOEL-due to HTN. now improved. avoid nephrotoxic agents 5. DM- A1c 6.3. was not on medications at home. can re-start metformin on discharge. cont iss 6. +tox- obtained on 05/25. +opiates and ecstasy. adamantly denies using these substances. can be false positive from labetolol and metformin use. 7. DVT ppx- SCD 8.pt ambulated well with PT today and not requiring DEVORAH. pt agreeable to d/c home. informed him of importance of medication compliance and follow up. informed of risks of not being compliant. should see PMD beginning of next for BP check and consider further workup for resistent HTN. neuro follow up to initiate asa after repeat imaging. The care of this patient involved high complexity decision making to prevent further life threatening deterioration of the patient's condition and/or to evaluate & treat vital organ system(s) failure or risk of failure. 35 mins
[2017-05-29 18:28] LABS: MAGNESIUM 2.2 mg/dL (1.8-2.4); PHOSPHOROUS 3.9 mg/dL (2.5-4.9)
--- NOTE | 2017-05-29 20:32 | PN ---
Physical Exam: SUBJECTIVE: Patient seen and examined at bedside. Patient states that he has decreased pain in his knees and legs and is able to walk a little. He denies chest pain, headache, nausea, vomiting, shortness of breath. OBJECTIVE: Vital Signs Period Temp Pulse Resp BP Sys/Unger Pulse Ox Last 24 Hr 98 F-98.6 F 63-107 11-18 131-172/77-94 96-98 GENERAL: The patient is awake, alert, and oriented x3, in no acute distress. HEAD: Normal with no signs of trauma. EYES: PERRL, extraocular movements intact, sclera anicteric, conjunctiva clear. No ptosis. LUNGS: Breath sounds equal, clear to auscultation bilaterally, no wheezes, no crackles, no accessory muscle use. HEART: Regular rate and rhythm, S1, S2, no murmurs, rub or gallops appreciated. ABDOMEN: Soft, nontender, nondistended, normoactive bowel sounds, no guarding, no rebound, no hepatosplenomegaly, no masses. EXTREMITIES: 2+ pulses, warm, well-perfused, improving R knee swelling without tenderness to palpation noted. Patient is better able to lift both extremities today. NEUROLOGICAL: Cranial nerves II through XII grossly intact. Normal speech, gait not observed. PSYCH: Normal mood, normal affect. SKIN: Warm, dry, normal turgor, no rashes or lesions noted Laboratory Results - last 24 hr 05/28/17 05/29/17 05/29/17 21:22 05:00 05:00 WBC 11.2 H RBC 3.28 L Hgb 10.1 L Hct 29.8 L MCV 90.9 MCH 30.9 MCHC 34.0 RDW 13.7 Plt Count 464 H MPV 8.6 Neutrophils % 68.6 Lymphocytes % 21.1 D Monocytes % 9.4 Eosinophils % 0.5 D Basophils % 0.4 Sodium 144 Potassium 4.1 Chloride 112 H Carbon Dioxide 25 Anion Gap 7 L BUN 27 H Creatinine 1.1 POC Glucometer 299.99168 Random Glucose 186 H D Calcium 7.6 L Phosphorus Magnesium 05/29/17 05/29/17 05/29/17 05:38 11:53 16:23 WBC RBC Hgb Hct MCV MCH MCHC RDW Plt Count MPV Neutrophils % Lymphocytes % Monocytes % Eosinophils % Basophils % Sodium Potassium Chloride Carbon Dioxide Anion Gap BUN Creatinine POC Glucometer 184.85187 251.67919 322.80588 Random Glucose Calcium Phosphorus Magnesium 05/29/17 17:00 WBC RBC Hgb Hct MCV MCH MCHC RDW Plt Count MPV Neutrophils % Lymphocytes % Monocytes % Eosinophils % Basophils % Sodium Potassium Chloride Carbon Dioxide Anion Gap BUN Creatinine POC Glucometer Random Glucose Calcium Phosphorus 3.9 D Magnesium 2.2 Active Medications Generic Name Dose Route Start Last Admin Trade Name Freq PRN Reason Stop Dose Admin Acetaminophen 650 mg 05/27/17 18:54 Tylenol - PO Q6H PRN FEVER OR PAIN Acetaminophen 1,000 mg 05/27/17 18:54 Ofirmev Injection - IVPB Q6H PRN PAIN Amlodipine Besylate 10 mg 05/28/17 10:00 05/29/17 09:47 Norvasc - PO 10 mg DAILY [facility] Administration Chlorhexidine Gluconate 1 applic 05/27/17 22:00 05/28/17 22:07 Hibiclens For Decolonization - TP 1 applic HS [facility] Administration Hydralazine HCl 10 mg 05/29/17 10:00 05/29/17 09:45 Apresoline - PO 10 mg BID [facility] Administration Insulin Aspart 1 vial 05/27/17 22:00 05/29/17 16:25 Novolog Vial Sliding Scale - SQ 8 units ACHS [facility] Administration Protocol Labetalol HCl 10 mg 05/27/17 19:02 Normodyne Injection - IVPUSH ONCE PRN HYPERTENSION Labetalol HCl 800 mg 05/28/17 14:00 05/29/17 14:29 Normodyne - PO 800 mg TID [facility] Administration Levetiracetam 500 mg 05/27/17 22:00 05/29/17 09:46 Keppra - PO 05/29/17 23:59 500 mg BID [facility] Administration Losartan Potassium 100 mg 05/29/17 10:00 05/29/17 09:45 Cozaar - PO 100 mg DAILY [facility] Administration Prednisone 20 mg 05/29/17 11:53 Deltasone - PO DAILY@0800 [facility] ASSESSMENT/PLAN: 56yo [place]ian-speaking M with significant history of DM, uncontrolled HTN, previous CVA noted from medical records who presented to the ED for painful feet and admitted to ICU for treatment of intracranial hemorrhage. #Hypertensive Emergency -patient's blood pressure is controlled today -continue amlodipine 10 QD -continue labetalol 600 TID -continue losartan to 100mg QD -continue hydralazine 10mg BID -In 2013, had US ultrasound that showed no renal artery stenosis -repeat US kidney to r/o renal artery stenosis and adrenal mass -get urine metanephrines to r/o pheochromocytoma #Acute Gout: improving -pt s/p arthrocentesis: WBC 46853, RBC 3232, positive for monosodium urate crystals -uric acid normal -lower extremity dopplers negative -continue prednisone 30mg PO QD, last day tomorrow morning -tylenol for pain -PT to come walk patient, patient was able to walk 50 feet #Intracranial hemorrhage: likely secondary to uncontrolled hypertension, controlled -possible outpatient MRI -tox screen positive for opiates and MDMA -alc quant negative -appreciate neuro/surg recs -continue on keppra 500 BID #NOEL: resolved -Most likely secondary to prerenal azotemia, resolving -Repeat BMP in AM #DM -BGM ACHS -Insulin sliding scale -A1C 6.3 FEN: -No standing fluids -Replete lytes as necessary -Diabetic, low sodium diet PPX: DVT- SCDs applied to both legs GI- Protonix 40mg Dispo: Patient for discharge tomorrow given BP remains stable full code Visit type - Emergency Visit Emergency Visit: No - New Patient This patient is new to me today: No - Critical Care Critical Care patient: No
[2017-05-29] MEDS: CHLORHEXIDINE GLUCONATE 4% CLEANSER FOR DECOLONIZATION TP SCH (21:17)
[2017-05-29] MEDS ORDERED: levETIRAcetam 500 MG TABLET (FP) PO SCH (23:00)
[2017-05-30] MEDS: LABETALOL HCL 200 MG TABLET (FP) PO SCH ×2 (06:07→14:05)
[2017-05-30] MEDS: INSULIN SLIDING SCALE (NOVOLOG) 1 VIAL SQ SCH ×3 (06:13→16:53)
[2017-05-30 07:03] LABS: MCH 29.8 pg (25.7-33.7); MCHC 33.2 g/dl (32.0-35.9); MEAN CELL VOLUME 89.9 fl (80-96); MEAN PLT VOLUME 8.5 fl (7.5-11.1); PLATELET COUNT 475 K/MM3 (134-434); WHITE BLOOD COUNT 12.1 K/mm3 (4.0-10.0)
[2017-05-30 07:10] LABS: ANION GAP 7 (8-16); CALCIUM 7.7 mg/dL (8.5-10.1); CO2 24 mmol/L (21-32); CREATININE 1.3 mg/dL (0.7-1.3); GLUCOSE,RANDOM 226 mg/dL (74-106); MAGNESIUM 2.3 mg/dL (1.8-2.4); PHOSPHOROUS 3.8 mg/dL (2.5-4.9)
[2017-05-30 09:41] LABS: REACTIVE LYMPHOCYTES 2 % (0-80); TOTAL CELLS COUNTED 100
[2017-05-30 09:42] LABS: PLATELET ESTIMATE SLT INCREASE
[2017-05-30] MEDS: LOSARTAN POTASSIUM 50 MG TABLET (FP) PO SCH (09:55)
[2017-05-30] MEDS: amLODIPine BESYLATE 10 MG TABLET (FP) PO SCH (09:56)
[2017-05-30] MEDS: hydrALAZINE HCL 10 MG TABLET PO SCH (09:56)
--- NOTE | 2017-05-30 11:40 | DS ---
Physical Exam: SUBJECTIVE: Patient seen and examined at bedside. States that he has some mild R knee pain. Able to walk. Denies chest pain, SOB, nausea, vomiting, diarrhea, headache. OBJECTIVE: Vital Signs Period Temp Pulse Resp BP Sys/Unger Pulse Ox Last 24 Hr 97.7 F-99.5 F 68-80 15-18 131-153/78-94 95-95 PHYSICAL EXAM GENERAL: The patient is awake, alert, and oriented x3, in no acute distress. HEAD: Normal with no signs of trauma. EYES: PERRL, extraocular movements intact, sclera anicteric, conjunctiva clear. No ptosis. LUNGS: Breath sounds equal, clear to auscultation bilaterally, no wheezes, no crackles, no accessory muscle use. HEART: Regular rate and rhythm, S1, S2, no murmurs, rub or gallops appreciated. ABDOMEN: Soft, nontender, nondistended, normoactive bowel sounds, no guarding, no rebound, no hepatosplenomegaly, no masses. EXTREMITIES: 2+ pulses, warm, well-perfused, improving R knee swelling without tenderness to palpation noted. Patient is better able to lift both extremities today. NEUROLOGICAL: Cranial nerves II through XII grossly intact. Normal speech, gait not observed. PSYCH: Normal mood, normal affect. SKIN: Warm, dry, normal turgor, no rashes or lesions noted LABS Laboratory Results - last 24 hr 05/26/17 05/29/17 05/29/17 21:31 05:38 11:53 WBC RBC Hgb Hct MCV MCH MCHC RDW Plt Count MPV Total Counted Neutrophils % Neutrophils % (Manual) Lymphocytes % Lymphocytes % (Manual) Monocytes % (Manual) Platelet Estimate Sodium Potassium Chloride Carbon Dioxide Anion Gap BUN Creatinine POC Glucometer 345.43000 [phone] Random Glucose Calcium Phosphorus Magnesium 05/29/17 05/29/17 05/29/17 16:23 17:00 21:24 WBC RBC Hgb Hct MCV MCH MCHC RDW Plt Count MPV Total Counted Neutrophils % Neutrophils % (Manual) Lymphocytes % Lymphocytes % (Manual) Monocytes % (Manual) Platelet Estimate Sodium Potassium Chloride Carbon Dioxide Anion Gap BUN Creatinine POC Glucometer [phone] Random Glucose Calcium Phosphorus 3.9 D Magnesium 2.2 05/30/17 05/30/17 05/30/17 06:11 06:25 06:25 WBC 12.1 H RBC 3.64 L Hgb 10.9 L Hct 32.7 L MCV 89.9 MCH 29.8 MCHC 33.2 RDW 14.0 Plt Count 475 H MPV 8.5 Total Counted 100 Neutrophils % No Result Required. Neutrophils % (Manual) 60.0 Lymphocytes % No Result Required. Lymphocytes % (Manual) 28.0 Monocytes % (Manual) 10 Platelet Estimate Slt increase Sodium 140 Potassium 4.0 Chloride 109 H Carbon Dioxide 24 Anion Gap 7 L BUN 32 H Creatinine 1.3 POC Glucometer 218 Random Glucose 226 H D Calcium 7.7 L Phosphorus 3.8 Magnesium 2.3 05/30/17 11:19 WBC RBC Hgb Hct MCV MCH MCHC RDW Plt Count MPV Total Counted Neutrophils % Neutrophils % (Manual) Lymphocytes % Lymphocytes % (Manual) Monocytes % (Manual) Platelet Estimate Sodium Potassium Chloride Carbon Dioxide Anion Gap BUN Creatinine POC Glucometer 191 Random Glucose Calcium Phosphorus Magnesium HOSPITAL COURSE: Date of Admission:05/23/17 56yo Kazakh-speaking M with significant history of DM, uncontrolled HTN, previous CVA noted from medical records presented to the ED complaining of painful feet and legs. Patient was found to have hypertensive emergency in the ED and a CT of the brain was performed that showed intracranial hemorrhages. Patient was sent to the ICU for aggressive blood pressure control. Patient was uncontrolled on PO medications and required a nicardipine drip to be initiated in the ICU. The drip was able to stabilize his blood pressure to an appropriate range. Patient had an arthrocentesis performed which revealed monosodium urate crystals reflective of gout. Patient was started on prednisone 30mg daily for 5 days. Over the course of his admission, patient's pain decreased and he was able to tolerate walking with physical therapy. Repeat scans of the patient's brain showed stable, non-enlarging hemorrhages. Patient was transitioned to PO blood pressure medications, but it was difficult to titrate them to a point where his blood pressure was adequate. Patient was discharged with prescriptions for 4 separate blood pressure medications and scripts for statin. 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 We managed to control your blood pressure and treat your gout with steroids. Medical Recommendations: All of your medications have been sent to: [facility] [address] [place] [address] For your hypertension: -It is very important to eat a low-salt diet at home and avoid foods that have a high salt content. Salt increases your blood pressure. -Take the following medications at home: -Amlodipine 10mg by mouth once a day -Labetalol 800mg by mouth three times a day -Losartan 100mg by mouth once a day -Hydralazine 10mg by mouth once a day For your Gout: -If you are having further joint pains, buy and use advil over the counter -Try to walk and exercise your muscles at home For your stroke: -Take Atorvastatin 80mg by mouth once a day to help control your cholesterol and prevent future strokes - Follow up with neurology as an outpatient. You should be started on aspirin to prevent another stroke but will need to have repeat imaging to ensure the bleeding is stable prior to starting. Follow up with us in our primary care clinic next week at: [address] [place] [address] If you experience any fevers, chills, nausea, vomiting, chest pain, shortness of breath, return to the emergency room immediately Referrals: Magdaleno Aguilar DO [Staff Physician] - Geeta Oh MD [Primary Care Provider] - Disposition: HOME - Home Medications Comprehensive Discharge Medication List: Ambulatory Orders Folic Acid - 1 mg PO DAILY #30 tablet 09/12/13 Glipizide [Glucotrol -] 5 mg PO BIDAC #60 tablet 09/12/13 Metformin HCl [Glucophage -] 500 mg PO AM #30 tablet 09/12/13 Multivitamins [Multivit ([facility] Formul[facility])] 1 tab PO DAILY #30 tab 09/12/13 Amlodipine Besylate [Norvasc -] 10 mg PO DAILY #14 tablet 05/30/17 Atorvastatin Ca [Lipitor] 80 mg PO DAILY #7 tablet 05/30/17 Hydralazine HCl [Apresoline -] 10 mg PO BID #14 tablet 05/30/17 Labetalol HCl [Normodyne -] 800 mg PO TID #84 tablet 05/30/17 Losartan Potassium [Cozaar -] 100 mg PO DAILY #14 tablet 05/30/17 This patient is new to me today: No Emergency Visit: No Critical Care patient: No - Discharge Referral Referred to [facility] Med P.C.: No
[2017-05-30] MEDS ORDERED: ATORVASTATIN CA 80 MG TABLET (FP) PO ONE (12:00)
--- NOTE | 2017-05-30 13:19 | PN ---
Teaching Attending Note Name of Resident: Ehsan Dover ATTENDING PHYSICIAN STATEMENT I saw and evaluated the patient. I reviewed the resident's note and discussed the case with the resident. I agree with the resident's findings and plan as documented. SUBJECTIVE:asymptomatic. denies CP, SOB, fever, chills, N/V/C/D OBJECTIVE: Last Vital Signs Temp Pulse Resp BP Pulse Ox 99.2 F 70 18 153/86 95 05/30/17 07:57 05/30/17 07:57 05/30/17 08:01 05/30/17 07:57 05/29/17 22:57 General NAD CV S1 S2 RRR no murmur/rub/gallop Lungs CTA B/L no wheezing/rales/rhonchi Abdomen soft NT/ND Extremities R knee no swelling noted. good ROM ASSESSMENT AND PLAN: 56yo M with PMH continuous ETOH dependence, ETOH withdrawal seziures, HTN, DM and gout presented to the ER with B/L feet pain and BISHOP 1. Acute/subacute hemorrhage- R basal ganglia and L parietal lobe with surrounding edema. possible due to HTN urgency vs frequent falls from ETOH use. no neurological deficits noted. repeat Head CT stable. will need MRI in several weeks to re-assess. cont to hold asa in setting of intracranial hemorrhage. on high intensity statin. spoke with neurology. f/u as outpatient 2. HTN emergency- controlled. cont current 4 med regimen. will need close outpatient BP monitoring 3. R knee gouty flare- s/p arthrocentesis with removal of fluid + for crystals. improved. on prednisone 30mg will d/c today. 4. NOEL-due to HTN. now improved. avoid nephrotoxic agents 5. DM- A1c 6.3. was not on medications at home. can re-start metformin on discharge. cont iss 6. +tox- obtained on 05/25. +opiates and ecstasy. adamantly denies using these substances. can be false positive from labetolol and metformin use. 7. DVT ppx- SCD 8.d/c home. explained with alturas speaking bhutanese resident the importance of medication compliance and follow up. script and RW provided. case referred to [facility] for VNS.
[2017-05-30 15:41] VITALS: BP 153/87; PULSE 77; TEMP 98
[2017-05-31] MEDS ORDERED: ATORVASTATIN CA 80 MG TABLET (FP) PO SCH (22:00)
== END 2017-05-30 18:59 | disposition home health service (06) | DRG 44 ==
LOC: JER 22:35 → JERBED 05-23 04:50 → JICU 05-23 08:15 → J4W 05-29 19:11
PROVIDERS: ADMIT Internal Medicine; ATTEND Internal Medicine
DX: I61.8 Other nontraumatic intracerebral hemorrhage (principal); N17.9 Acute kidney failure, unspecified; E11.9 Type 2 diabetes mellitus without complications; M10.9 Gout, unspecified; Z91.14 Patient's other noncompliance with medication regimen; L03.115 Cellulitis of right lower limb; L03.116 Cellulitis of left lower limb; G93.6 Cerebral edema; E83.51 Hypocalcemia; I16.0 Hypertensive urgency
CPT/HCPCS: 36415; 70450-TC; 70496-TC; 70498-TC; 71010-TC; 73560-TC-LT; 73560-TC-RT; 76775-TC; 80048; 80053; 80307; 81003; 81015; 82436; 82550; 83036; 83605; 83735; 84100; 84133; 84300; 84484; 84550; 85025; 85610; 85651; 85730; 86038; 86140; 86431; 86618; 86850; 86900; 86901; 87040; 87070; 87075; 87205; 87389; 89051; 89060; 90670; 90688; 93005; 93010; 93306-TC; 93970-TC; 93976; 97116-GP; 97161-GP; 99284-25; G0008; G0009

== ENCOUNTER 2018-09-19 03:53 | Emergency (ER) | payer SELFPAY ==
[2018-09-19] MEDS ORDERED: SODIUM CHLORIDE 1,000 ML IV SCH (04:00)
[2018-09-19] MEDS ORDERED: LABETALOL HCL 5 MG/1 ML (100MG/20 ML VIAL) IVPUSH ONE ×2 (04:13→04:36)
[2018-09-19] MEDS ORDERED: NICARDIPINE 25 MG in DEXTROSE 5%-WATER - 240 ML IVPB SCH (04:15)
[2018-09-19] MEDS ORDERED: ACETAMINOPHEN INJECTION 100 ML IVPB ONE (04:18)
--- NOTE | 2018-09-19 04:19 | PDOC ---
Attending Attestation - Resident Resident Name: Connor Wang - ED Attending Attestation I have performed the following: I have examined & evaluated the patient, The case was reviewed & discussed with the resident, I agree w/resident's findings & plan, Exceptions are as noted - HPI HPI: 09/19/18 04:14 58 M with h/o NIDDM, HTN, Alcohol withdrawal seizures, prior lacunar infarct 2013, and hemorrhagic stroke, presenting with L sided weakness and facial droop. Per brother, pt was in his USOH at 7PM last night. At 2AM this morning, brother found pt on the ground, confused, and not moving his R side. Pt unable to contribute any history right now. - Physicial Exam PE: 09/19/18 04:16 GENERAL: Awake, alert, in no acute distress. HEAD: No signs of trauma EYES: PERRLA, EOMI, sclera anicteric, conjunctiva clear ENT: Auricles normal inspection, hearing grossly normal, nares patent, oropharynx clear without exudates. Moist mucosa NECK: Nontender, no stepoffs, Normal ROM, supple, no lymphadenopathy, JVD, or masses LUNGS: Breath sounds equal, clear to auscultation bilaterally. No wheezes, and no crackles HEART: Regular rate and rhythm, normal S1 and S2, no murmurs, rubs or gallops ABDOMEN: Soft, nontender, normoactive bowel sounds. No guarding, no rebound. No masses EXTREMITIES: Normal range of motion, no edema. No clubbing or cyanosis. No cords, erythema, or tenderness NEUROLOGICAL: + L facial droop, L arm paralysis, L leg with minimal movement SKIN: Warm, Dry, normal turgor, no rashes or lesions noted. - Critical Care Time Total Critical Care Time: 60 Critical Care Statement: The care of this patient involved high complexity decision making to prevent further life threatening deterioration of the patient 's condition and/or to evaluate & treat vital organ system(s) failure or risk of failure. - Medical Decision Making 09/19/18 04:20 58 M with L side weakness and facial droop. NIHSS 17. LKN > [address] head shows acute R sided hemorrhage Pt HOB elevated 30 degrees Cardene gtt + labetalol push given Pt accepted by Dr. Cornejo (stroke team) and Dr. Storm (ED attending) at [facility] 09/19/18 04:33 EMS on scene for vladimir 09/19/18 04:46 BP improved on cardene gtt, now 184/80 Pt protecting airway, awake and alert NIH Stroke Scale - Last Known Well Date/Time & Onset Date Last Known Well: 09/18/18 Time Last Known Well: 19:00 - Initial Evaluation Level of consciousness: Alert Ask patient the month and their age: Both incorrect Ask patient to open & close eyes; make fist and let go: Obeys both correctly Best gaze (horizontal eye movement): Normal Visual field testing: No visual field loss Facial paresis (Show teeth/raise eyebrows/close eyes tight): Partial paralysis ( total or near paralysis of lower face) Motor Function: Left Arm: No movement Motor Function: Right Arm: Normal (extends arm 90 (or 45) degrees for 10 seconds without drift Motor Function: Left Leg: No movement Motor Function: Right Leg: Normal (extends leg 30 degrees for 5 seconds without drift) Limb Ataxia: No ataxia Sensory(Use pinprick test arms,legs,trunk,face/side to side): Mild to moderate decrease in sensation Best language (Describe picture, name items, read sentences): Severe aphasia Dysarthria (read several words): Near unintelligible or unable to speak Extinction and Inattention: No abnormality - Total Score NIH Stroke Scale Score: 17
[2018-09-19 04:22] LABS: BASO % 1.2 % (0-2.0); EOS % 3.9 % (0-4.5); HEMATOCRIT 38.9 % (35.4-49); HEMOGLOBIN 13.6 GM/dL (11.7-16.9); LYMPH % 23.7 % (8-40); MCH 32.1 pg (25.7-33.7); MCHC 34.9 g/dl (32.0-35.9); MEAN PLT VOLUME 8.9 fl (7.5-11.1); MONO % 8.9 % (3.8-10.2); NEUT % 62.3 % (42.8-82.8); PLATELET COUNT 230 K/MM3 (134-434); RBC 4.22 M/mm3 (4.00-5.60); RDW 13.5 % (11.9-15.9); WHITE BLOOD COUNT 7.8 K/mm3 (4.0-10.0)
[2018-09-19] MEDS ORDERED: LABETALOL HCL 5 MG/1 ML (200MG/40ML VIAL) IVPB ONE (04:23)
[2018-09-19 04:30] LABS: EPI CELLS 0.8 /HPF (0-5); HYALINE CASTS 0 /hpf (0-8); PH,URINE 6.5 (5.0-8.0); URINE APPEARANCE CLEAR; URINE BACTERIA 1.17 /hpf (NEGATIVE); URINE BILIRUBIN NEGATIVE (<2.0 mg/dL); URINE COLOR YELLOW; URINE GLUCOSE (UA) NEGATIVE (NEGATIVE); URINE KETONE NEGATIVE (NEGATIVE); URINE LEUK ESTERASE NEGATIVE (NEGATIVE); URINE NITRITE NEGATIVE (NEGATIVE); URINE PROTEIN 3+ (NEGATIVE); URINE RBC 3 /hpf (0-4); URINE UROBILINOGEN 0.2 mg/dL (0.2-1.0); URINE WBC 1 /hpf (0-5)
[2018-09-19] MEDS ORDERED: ONDANSETRON 4 MG/2 ML VIAL ONE (04:30)
[2018-09-19 04:33] LABS: INR 1.01 (0.83-1.09); PROTHROMBIN TIME (PATIENT) 11.9 SEC (9.7-13.0)
[2018-09-19] MEDS ORDERED: ONDANSETRON 4 MG/2 ML VIAL IVPB ONE (04:34)
[2018-09-19 04:43] VITALS: BP 190/86
[2018-09-19 04:52] VITALS: PULSE 85; TEMP 98.9
[2018-09-19 05:00] VITALS: BMI 33.4
[2018-09-19 05:12] LABS: ALBUMIN 2.9 g/dl (3.4-5.0); ALK PHOS 74 U/L (45-117); ANION GAP 7 MMOL/L (8-16); BILIRUBIN,TOTAL 0.3 mg/dL (0.2-1); BLOOD UREA NITROGEN 33 mg/dL (7-18); CALCIUM 8.2 mg/dL (8.5-10.1); CHLORIDE 108 mmol/L (98-107); CHOLESTEROL 187 mg/dL (50-200); CO2 26 mmol/L (21-32); CREATININE 1.6 mg/dL (0.55-1.3); GLUCOSE,RANDOM 125 mg/dL (74-106); HDL CHOLESTEROL 62 mg/dL (40-60); POTASSIUM 3.9 mmol/L (3.5-5.1); SGOT/AST 20 U/L (15-37); SGPT/ALT 36 U/L (13-61); SODIUM 142 mmol/L (136-145); TOT PROT 5.8 g/dl (6.4-8.2); TRIGLYCERIDES 165 mg/dL (0-150)
--- NOTE | 2018-09-19 05:28 | PDOC ---
History of Present Illness - General Chief Complaint: Altered Mental Status Stated Complaint: POSSIBLE STROKE Time Seen by Provider: 09/19/18 03:56 - History of Present Illness Initial Comments: The pt is a 58M who presented by EMS for evaluation for concern of stroke. The pt was last seen normal by his brother at 1900 on 09/18/18. On presentation, the pt claims he was his normal self until approximately 2 hours [employer] when he fell out of bed. On arrival the pt reported L sided weakness and decreased sensation. Denied pain, recent illness Pt was then taken to CT Scan 09/19/18 05:23 NIH Stroke Scale - Last Known Well Date/Time & Onset Date Last Known Well: 09/18/18 Time Last Known Well: 19:00 - Initial Evaluation Level of consciousness: Alert Ask patient the month and their age: Answers one correctly (Age correct) Ask patient to open & close eyes; make fist and let go: Obeys both correctly Best gaze (horizontal eye movement): Normal Visual field testing: No visual field loss Facial paresis (Show teeth/raise eyebrows/close eyes tight): Partial paralysis ( total or near paralysis of lower face) (L sided facial paralysis) Motor Function: Left Arm: No movement Motor Function: Right Arm: Normal (extends arm 90 (or 45) degrees for 10 seconds without drift Motor Function: Left Leg: No movement Motor Function: Right Leg: Normal (extends leg 30 degrees for 5 seconds without drift) Limb Ataxia: Present in two limbs Sensory(Use pinprick test arms,legs,trunk,face/side to side): Mild to moderate decrease in sensation (LUE and LLE decreased sensation to light touch/pressure) Best language (Describe picture, name items, read sentences): No Aphasia Dysarthria (read several words): Mild to moderate slurring of words Extinction and Inattention: No abnormality - Total Score NIH Stroke Scale Score: 15 Past History - Past Medical History Allergies/Adverse Reactions: Allergies Allergy/AdvReac Type Severity Reaction Status Date / Time Penicillins Allergy Unknown Verified 05/22/17 22:49 Home Medications: Ambulatory Orders Amlodipine Besylate [Norvasc -] 10 mg PO DAILY #30 tablet 04/03/18 Aspirin Coated [Ecotrin -] 81 mg PO DAILY #30 tablet. 04/03/18 Atorvastatin Ca [Lipitor] 80 mg PO HS #30 tab 04/03/18 Glipizide [Glucotrol -] 10 mg PO BID #120 tablet 04/03/18 Labetalol HCl [Normodyne -] 400 mg PO BID #120 tablet 04/03/18 Losartan Potassium [Cozaar -] 100 mg PO DAILY #30 tablet 04/03/18 hydrALAZINE HCL [Apresoline -] 20 mg PO BID #120 tablet 04/03/18 metFORMIN HCL [Glucophage -] 1,000 mg PO BID #120 tablet 04/03/18 Anemia: No Asthma: No Cancer: No Cardiac Disorders: Yes CVA: Yes (2013, 2016 (hemorhagic)) COPD: No CHF: No Dementia: No Diabetes: Yes GI Disorders: No Disorders: No HTN: Yes Hypercholesterolemia: No Liver Disease: No Seizures: Yes (associated with ETOH withdrawl) Thyroid Disease: No - Surgical History Abdominal Surgery: No Appendectomy: No Cardiac Surgery: No Cholecystectomy: No Lung Surgery: No Neurologic Surgery: No Orthopedic Surgery: No - Immunization History Immunization Up to Date: (Unknown) - Suicide/Smoking/Psychosocial Hx Smoking History: Unknown if ever smoked Have you smoked in the past 12 months: No Hx Alcohol Use: No Drug/Substance Use Hx: No Substance Use Type: Alcohol Hx Substance Use Treatment: No *Physical Exam - Vital Signs Last Vital Signs Temp Pulse Resp BP Pulse Ox 98.9 F 85 20 190/86 H 100 09/19/18 04:48 09/19/18 04:48 09/19/18 04:48 09/19/18 04:48 09/19/18 04:29 - Physical Exam Comments: GENERAL: Awake, alert, oriented to person and place, not time, no acute distress HEAD: No signs of trauma, normocephalic, atraumatic EYES: PERRLA, EOMI, sclera anicteric, conjunctiva clear ENT: Hearing grossly normal, nares patent, oropharynx clear without exudates. Moist mucosa LUNGS: No distress, speaks full sentences, clear to auscultation bilaterally HEART: Regular rate and rhythm, normal S1 and S2, no murmurs appreciated, peripheral pulses normal and equal bilaterally ABDOMEN: Soft, nontender, normoactive bowel sounds. No guarding, no rebound NEUROLOGICAL: L sided facial droop, slurred speech, follows commands, decreased sensation in LUE/LLE, LUE/LLE paralysis (strength 0/5), RUE/RLE strength 5/5 throughout, sensation to light touch intact in RUE/RLE SKIN: Warm, Dry 09/19/18 05:29 Moderate Sedation - Procedure Monitoring Vital Signs: Procedure Monitoring Vital Signs Temperature 98.9 F 09/19/18 04:48 Pulse Rate 85 09/19/18 04:48 Respiratory Rate 20 09/19/18 04:48 Blood Pressure 190/86 H 09/19/18 04:48 O2 Sat by Pulse Oximetry (%) 100 09/19/18 04:29 ED Treatment Course - LABORATORY CBC & Chemistry Diagram: 09/19/18 04:08 09/19/18 04:08 - ADDITIONAL ORDERS Additional order review: Laboratory Results 09/19/18 09/19/18 09/19/18 04:08 04:08 03:57 PT with INR 11.90 INR 1.01 Sodium 142 Potassium 3.9 Chloride 108 H Carbon Dioxide 26 Anion Gap 7 L BUN 33 H Creatinine 1.6 H Creat Clearance w eGFR 44.78 Random Glucose 125 H Calcium 8.2 L Total Bilirubin 0.3 AST 20 ALT 36 Alkaline Phosphatase 74 Creatine Kinase 2078 H Troponin I < 0.02 Total Protein 5.8 L Albumin 2.9 L Triglycerides 165 H Cholesterol 187 Total LDL Cholesterol 104 H HDL Cholesterol 62 H Urine Color Yellow Urine Appearance Clear Urine pH 6.5 D Ur Specific [place] 1.008 L Urine Protein 3+ Urine Glucose (UA) Negative Urine Ketones Negative Urine Blood 1+ Urine Nitrite Negative Urine Bilirubin Negative Urine Urobilinogen 0.2 Ur Leukocyte Esterase Negative Urine WBC (Auto) 1 Urine RBC (Auto) 3 Urine Casts (Auto) 0 U Epithel Cells (Auto) 0.8 Urine Bacteria (Auto) 1.17 09/19/18 04:08 RBC 4.22 MCV 92.0 MCHC 34.9 RDW 13.5 MPV 8.9 Neutrophils % 62.3 Lymphocytes % 23.7 D Monocytes % 8.9 Eosinophils % 3.9 Basophils % 1.2 - Medications Given in the ED: ED Medications Discontinued Medications Generic Name Dose Route Start Last Admin Trade Name Freq PRN Reason Stop Dose Admin Sodium Chloride 1,000 mls @ 42 mls/hr 09/19/18 04:00 09/19/18 04:34 Normal Saline - IV Not Given ASDIR LULA Nicardipine HCl 25 mg/ 250 mls @ 25 mls/hr 09/19/18 04:15 09/19/18 04:27 Dextrose IVPB 2.5 mg/hr TITR LULA 25 mls/hr Administration Protocol 2.5 MG/HR Labetalol HCl 20 mg 09/19/18 04:13 09/19/18 04:20 Normodyne Injection - IVPUSH 09/19/18 04:14 20 mg ONCE ONE Administration Labetalol HCl 20 mg 09/19/18 04:36 09/19/18 04:36 Normodyne Injection - IVPUSH 09/19/18 04:37 20 mg ONCE ONE Administration Ondansetron HCl 4 mg 09/19/18 04:34 09/19/18 04:34 Zofran Injection IVPB 09/19/18 04:35 4 mg ONCE ONE Administration Medical Decision Making - Medical Decision Making The pt is a 58M who presents for evaluation for concern of stroke. Last confirmed well 09/18/18 @ 1900 by brother. On presentation, pt w/ L sided facial droop, L hemiparesis, LUE/LLE decreased sensation Pt to CT w/ intracranial hemorrage seen on scan Pt placed in room 10 and placed on continuous monitoring HOB maintained (>/= 30 degrees) 2 large bore IVs obtained and labs sent Pt hypertensive to 223/108, pt given Labetalol 20mg IVP and started on a Nicardipine gtt @ 2.5 Transfer to [facility] initiated Pt w/ emesis x1, given Zofran 4mg IV once Pt protecting airway, persistent slurred speech Persistent HTN, given additional Labetalol 20mg IVP Ofirmev 1g IV for BISHOP Pt accepted to [facility] Pt w/ improved BP to 184/88 upon departure; HR 70s; 98% SpO2 on RA 09/19/18 05:36 *DC/Admit/Observation/Transfer Diagnosis at time of Disposition: Altered behavior, Intracranial hemorrhage Altered mental status Qualifiers: Altered mental status type: unspecified Qualified Code(s): R41.82 - Altered mental status, unspecified - Discharge Dispostion Disposition: TRANSFER ACUTE CARE/OTHER HOSP Condition at time of disposition: Critical - Referrals - Patient Instructions - Post Discharge Activity
--- NOTE | 2018-09-19 16:26 | EKG ---
Test Reason : Blood Pressure : / mmHG Vent. Rate : 070 BPM Atrial Rate : 070 BPM P-R Int : 168 ms QRS Dur : 102 ms QT Int : 412 ms P-R-T Axes : 060 034 020 degrees QTc Int : 444 ms NORMAL SINUS RHYTHM NORMAL ECG WHEN COMPARED WITH ECG OF 01-APR-2018 13:53, NO SIGNIFICANT CHANGE WAS FOUND Confirmed by KATHERINE LOVE MD ([id number]) on 09/19/2018 4:26:00 PM Referred By: Confirmed By:KATHERINE LOVE MD
== END 2018-09-19 04:55 | disposition short-term general hospital (02) ==
LOC: JER 03:53
PROC: 3E033GC Introduction of Other Therapeutic Substance into Peripheral Vein, Percutaneous Approach (ICD-10-PCS; principal; 2018-09-19)
PROC: 3E033GC Introduction of Other Therapeutic Substance into Peripheral Vein, Percutaneous Approach (ICD-10-PCS; 2018-09-19)
PROC: 3E033GC Introduction of Other Therapeutic Substance into Peripheral Vein, Percutaneous Approach (ICD-10-PCS; 2018-09-19)
PROC: 3E033GC Introduction of Other Therapeutic Substance into Peripheral Vein, Percutaneous Approach (ICD-10-PCS; 2018-09-19)
DX: I62.9 Nontraumatic intracranial hemorrhage, unspecified (principal); I69.254 Hemiplegia and hemiparesis following other nontraumatic intracranial hemorrhage affecting left non-dominant side; I10 Essential (primary) hypertension; E11.9 Type 2 diabetes mellitus without complications; Z79.84 Long term (current) use of oral hypoglycemic drugs; Z86.73 Personal history of transient ischemic attack (TIA), and cerebral infarction without residual deficits; R20.2 Paresthesia of skin
CPT/HCPCS: 36415; 70450-TC; 80053; 81003; 82465; 82550; 82553; 83718; 83721; 84478; 84484; 85025; 85610; 86850; 86900; 86901; 93005; 93010; 99285-25